=== PATIENT | female | born 1945 | race Caucasian/White ===

== ENCOUNTER 2022-09-16 12:11 | Emergency (ER) | payer MEDICARE, OTHER, SELFPAY ==
[2022-09-16] VITALS (9 sets, daily range): BP systolic 98–113; BP diastolic 46–54; PULSE 100–117; RESP 4–29; TEMP 37.4–37.8; O2SAT 93–100; BMI 28.3
--- NOTE | 2022-09-16 12:39 | ED.NAVMDI1 ---
HPI - Nausea/Vomiting/Diarrhea General Chief complaint: Nausea/Vomiting/Diarrhea Stated complaint: weakness Time Seen by Provider: 09/16/22 12:36 Source: patient Source comment: patient Mode of arrival: Wheelchair Limitations: no limitations History of Present Illness HPI Narrative: [age] female presents for nausea vomiting and diarrhea. She feels like she is dehydrated. She has been eating or drinking much. No fever or hematemesis or blood in her stool. She's not complaining to me of abdominal pain. No known ill contacts. No recent hospitalizations or antibiotic use. Related Data Previous Rx's Medication Instructions Recorded ondansetron 4 mg disintegrating 4 mg PO Q6H PRN nausea and 09/16/22 tablet vomiting #20 tabs Allergies Allergy/AdvReac Type Severity Reaction Status Date / Time aspartame Allergy Intermediate Verified 09/16/22 12:24 cantalope Allergy Intermediate Uncoded 09/16/22 12:24 Review of Systems ROS Narrative A ten point review of systems is negative except as noted above. PFSH PFSH Social History Smoking status: Never smoker Exam Narrative Exam Narrative: Nurses note and vital signs reviewed and patient is not hypoxic. General: The patient appears well and in no apparent distress. Patient is resting comfortably on cart. Skin: Warm, dry, no pallor noted. There is no rash noted. Head: Normocephalic, atraumatic Eye: Normal conjunctiva, no drainage Ears, Nose, Mouth, and Throat: oral mucosa is mildly dry Cardiovascular: Regular Rate and Rhythm Respiratory: Patient is in no distress, no accessory muscle use, lungs are clear to auscultation, no wheezing, rales or rhonchi Back: non-tender GI: often nontender Musculoskeletal: The patient has no evidence of calf tenderness, no pitting edema, symmetrical pulses noted bilaterally Neurological: A&O, normal speech Psychiatric: Cooperative Constitutional Vital Signs - 24 hr 09/16/22 12:19 09/16/22 12:20 09/16/22 12:22 Temperature 100.0 F H Pulse Rate 109 H Pulse Rate [Monitor] 114 H Respiratory Rate 24 20 Blood Pressure 98/54 L Blood Pressure [Right Arm] 98/54 L Pulse Oximetry 93 L 94 L 93 L Oxygen Delivery Method Room Air 09/16/22 12:22 09/16/22 12:22 09/16/22 12:55 Temperature Pulse Rate 113 H 114 H 105 H Pulse Rate [Monitor] Respiratory Rate 29 H 24 4 L Blood Pressure 98/54 L 108/54 L Blood Pressure [Right Arm] Pulse Oximetry 100 94 L 93 L Oxygen Delivery Method 09/16/22 13:00 09/16/22 13:30 09/16/22 13:56 Temperature 99.3 F Pulse Rate 103 H 104 H Pulse Rate [Monitor] Respiratory Rate 28 H 18 Blood Pressure 113/52 L 103/46 L Blood Pressure [Right Arm] Pulse Oximetry 97 97 Oxygen Delivery Method 09/16/22 13:30 Temperature Pulse Rate 100 H Pulse Rate [Monitor] Respiratory Rate 13 Blood Pressure 103/46 L Blood Pressure [Right Arm] Pulse Oximetry Oxygen Delivery Method Course Vital Signs Vital signs: Vital Signs Temperature 100.0 F H 09/16/22 12:19 Pulse Rate 114 H 09/16/22 12:19 Respiratory Rate 24 09/16/22 12:19 Blood Pressure 98/54 L 09/16/22 12:19 Pulse Oximetry 93 L 09/16/22 12:19 Oxygen Delivery Method Room Air 09/16/22 12:19 Temperature 99.3 F 09/16/22 13:56 Pulse Rate 100 H 09/16/22 13:30 Respiratory Rate 13 09/16/22 13:30 Blood Pressure 103/46 L 09/16/22 13:30 Pulse Oximetry 97 09/16/22 13:30 Oxygen Delivery Method Room Air 09/16/22 12:19 MDM - Nausea/Vomiting/Diarrhea MDM Narrative Medical decision making narrative: blood work is nonspecific. She feels much better after being given IV Zofran and IV fluids. She is tolerating by mouth liquids. Stool is ordered for culture and C. difficile She is able to be discharged home. Treatment diagnosis and follow-up were discussed with the patient. Differential Diagnosis Differential diagnosis: Likely food poisoning, gastroenteritis, clostridium difficile infection and dehydration Lab Data Attestation: I reviewed the patient's lab results. Labs: Lab Results 09/16/22 Range/Units 12:25 WBC 4.6 (4.0-11.0) 10^3/uL RBC 4.52 (4.20-5.40) 10^6/uL Hgb 12.6 (12.0-16.0) g/dL Hct 38.1 (36.0-48.0) % MCV 84.3 (81.0-99.0) fL MCH 27.9 (26.7-34.0) pg MCHC 33.1 (29.9-35.2) g/dL RDW 13.1 (11.0-15.0) % Plt Count 294 (150-450) 10^3/uL MPV 10.2 (9.5-13.5) fL Neut % (Auto) 56.4 (43.0-75.0) % Lymph % (Auto) 21.9 (20.5-60.0) % [place] % (Auto) 20.1 H (1.7-12.0) % Eos % (Auto) 0.0 L (0.9-7.0) % Baso % (Auto) 0.7 (0.2-2.0) % Neut # (Auto) 2.6 (1.4-6.5) 10^3/uL Lymph # (Auto) 1.0 L (1.2-3.8) 10^3/uL [place] # (Auto) 0.9 H (0.3-0.8) 10^3/uL Eos # (Auto) 0.0 (0.0-0.7) 10^3/uL Baso # (Auto) 0.0 (0.0-0.1) 10^3/uL Abs Immat Gran (auto) 0.04 H (0.00-0.03) 10^3/uL Imm/Tot Granulo (auto) 0.9 H (0.0-0.5) % Sodium 135 L (136-145) mmol/L Potassium 3.8 (3.5-5.1) mmol/L Chloride 101 (98-107) mmol/L Carbon Dioxide 19.1 L (21.0-32.0) mmol/L Anion Gap 18.7 BUN 17.0 (7.0-18.0) mg/dL Creatinine 0.96 (0.55-1.02) mg/dL Est GFR ( Amer) >60 (>=60) Est GFR (Non-Af Amer) 57 L (>=60) BUN/Creatinine Ratio 17.7 Glucose 207 H (74-106) mg/dL Calcium 8.3 L (8.5-10.1) mg/dL Discharge Plan Discharge Chief Complaint: Nausea/Vomiting/Diarrhea Clinical Impression: Diarrhea Patient Disposition: Home, Self-Care Time of Disposition Decision: 14:57 Condition: Good Mode of Transportation: Private Vehicle Prescriptions / Home Meds: New ondansetron 4 mg tablet,disintegrating 4 mg PO Q6H PRN (Reason: nausea and vomiting) Qty: 20 0RF Instructions: Acute Diarrhea (ED) Stand Alone Forms: Portal Instructions Referrals: WALT VAZQUEZ [Primary Care Provider] - 1 week
[2022-09-16 12:47] LABS: Basophils Percent Auto 0.7 % (0.2-2.0); Hematocrit 38.1 % (36.0-48.0); Hemoglobin 12.6 g/dL (12.0-16.0); Immature Granulocytes Abs Auto 0.04 10^3/uL (0.00-0.03); Immature Granulocytes Pct Auto 0.9 % (0.0-0.5); Lymphocytes Percent Auto 21.9 % (20.5-60.0); Mean Corpuscular HGB Conc 33.1 g/dL (29.9-35.2); Mean Corpuscular Hemoglobin 27.9 pg (26.7-34.0); Mean Corpuscular Volume 84.3 fL (81.0-99.0); Mean Platelet Volume 10.2 fL (9.5-13.5); Monocytes Absolute Auto 0.9 10^3/uL (0.3-0.8); Monocytes Percent Auto 20.1 % (1.7-12.0); Neutrophils Absolute Auto 2.6 10^3/uL (1.4-6.5); Neutrophils Percent Auto 56.4 % (43.0-75.0); Platelet Count 294 10^3/uL (150-450); Red Blood Count 4.52 10^6/uL (4.20-5.40); Red Cell Distribution Width 13.1 % (11.0-15.0); White Blood Count 4.6 10^3/uL (4.0-11.0)
[2022-09-16] MEDS: 0.9 % SODIUM CHLORIDE 500 ML IV (12:55)
[2022-09-16] MEDS: ONDANSETRON PF 4 MG/2 ML VIAL IV (12:55)
[2022-09-16 12:59] LABS: Anion Gap 18.7; BUN Creatinine Ratio 17.7; Calcium 8.3 mg/dL (8.5-10.1); Carbon Dioxide 19.1 mmol/L (21.0-32.0); Chloride 101 mmol/L (98-107); Estimated GFR (African America >60 (>=60); Estimated GFR (Non-African Ame 57 (>=60); Glucose 207 mg/dL (74-106); Potassium 3.8 mmol/L (3.5-5.1); Sodium 135 mmol/L (136-145)
--- NOTE | 2022-09-16 16:45 | ECG_ITS ---
[facility] Test Date: 2022-09-16 Pat Name: LB MUSE Department: Room: - Gender: Female Database Coordinator: : 1945 Requested By: [id number] Order Number: [id number] Reading MD: ROSEMARIE OLIVA Measurements Intervals [place] Rate: 114 P: 33 IA: 152 QRS: 95 QRSD: 130 T: 20 QT: 372 QTc: 440 Interpretive Statements 1120 Sinus tachycardia 3134 Anterior myocardial infarction, age undetermined 7102 Moderate right axis deviation 9150 abnormal ECG No previous ECG available for comparison Electronically Signed On 09-17-2022 7:13:53 EDT by ROSEMARIE OLIVA
[2022-09-16 17:00] LABS: C. Difficile PCR NEGATIVE (NEGATIVE)
== END 2022-09-16 15:23 | disposition home or self-care (01) ==
PROVIDERS: Emergency Provider Emergency Medicine; PCP Student in an Organized Health Care Education/Training Program
DX: R19.7 Diarrhea, unspecified (principal)
CPT/HCPCS: 36415; 80048; 81003; 85025; 87045; 87046; 87427; 87493; 93005; 99285

== ENCOUNTER 2023-08-27 10:49 | Outpatient (OUT) | payer MEDICARE, OTHER, SELFPAY ==
[2023-08-27 11:21] LABS: Anion Gap 11.1; Calcium 9.3 mg/dL (8.5-10.1); Carbon Dioxide 26.3 mmol/L (21.0-32.0); Chloride 107 mmol/L (98-107); Estimated GFR (African America >60 (>=60); Estimated GFR (Non-African Ame 50 (>=60); Glucose 180 mg/dL (74-106); Potassium 4.4 mmol/L (3.5-5.1); Sodium 140 mmol/L (136-145)
== END 2023-08-27 10:50 | disposition home or self-care (01) ==
LOC: LAB 10:51
PROVIDERS: PCP Student in an Organized Health Care Education/Training Program; Visit Provider Internal Medicine Cardiovascular Disease
DX: I42.9 Cardiomyopathy, unspecified (principal); I10 Essential (primary) hypertension
CPT/HCPCS: 36415; 80048

== ENCOUNTER 2024-04-10 09:49 | Outpatient (OUT) | payer MEDICARE, SELFPAY ==
--- OUTSIDE RECORDS SUMMARY | 2024-04-10 10:07 | XMS_ITS | CCD ---
Author Organization [facility] Care Team Providers Care Color Repairer Name Role Phone Danielle Nowak Unavailable Unavailable Unavailable Luke Scott II Unavailable Lino, Ms. Kenan Ware Attending Cy Huynh, Ms. Kenan Ware Referring Cy Nowak, Dr. Danielle Yadav Primary Care Unavail able MD Álvaro Pruitt Attending Provider MD Danielle Nowak Primary Care Provider Unavaila ble Álvaro Pruitt Attending Unavailable Álvaro Pruitt Admitting Unavailable She Danielle Primary Care Unavailable Álvaro Pruitt Attending Unavailable Álvaro Pruitt Admitting Unavailable She Danielle Primary Care Unavailable LINO, DR STEPHANIE Copeland Admitting Unavailable LINO, DR STEPHANIE Copeland Attending Unavailable LINO, DR STEPHANIE Copeland Consulting Unavailable [facility] Primary Care Unavailable TELLO MTZ Consulting Unavailable PRUITT, DR ÁLVARO Albarran Admitting Unavailable PRUITT, DR ÁLVARO Albarran Attending Unavailable [facility] Primary Care Unavailable PRUITT, DR ÁLVARO Albarran Consulting Unavailable LINO, DR STEPHANIE Copeland Admitting Unavailable LINO, DR STEPHANIE Copeland Attending Unavailable [facility] Primary Care Unavailable LINO, DR STEPHANIE Copeland Consulting Unavailable Tess Ovalles Consulting Unavailable Danielle Nowak Primary Care Physician Altagracia Rosario Attending Unavailable Memo Catherine Attending Unavailable Pruitt, Dr. Álvaro Escalona Attending Myriam vailable She, Dr. Danielle Yadav Primary Care Unavail able Sonal, Dr. Álvaro Escalona Attending Myriam vailable Pruitt, Dr. Álvaro Escalona Referring Myriam vailable She, Dr. Danielle Yadav Primary Care Unavail able Pruitt, Dr. Álvaro Escalona Attending Myriam vailable Pruitt, Dr. Álvaro Escalona Referring Myriam vailable She, Dr. Danielle Yadav Primary Care Unavail able Pruitt, Dr. Álvaro Escalona Attending Myriam vailable Pruitt, Dr. Álvaro Escalona Referring Myriam vailable She, Dr. Danielle Yadav Primary Care Unavail able Pruitt, Dr. Álvaro Escalona Attending Myriam vailable Pruitt, Dr. Álvaro Escalona Referring Myriam vailable She, Dr. Danielle Yadav Primary Care Unavail able Huynh, Ms. Kenan Ware Attending Unavai lable Huynh, Ms. Kenan Ware Referring Unavai lable She, Dr. Danielle Yadav Primary [facility] Unavail able She FRY, Danielle Yadav Primary Care Provider DANIELLE NOWAK Attending Unavailable SheDanielle obando MD Primary Care Provider ÁLVARO PRUITT Referring Unavailable SHE, DANIELLE YADAV Primary [facility] Unavailable Danielle Nowak MD Primary Care Provider Danielle Nowak MD Unavailable ÁLVARO PRUITT Attending Unavailable ÁLVARO PRUITT Referring Unavailable SHEDANIELLE OBANDO Primary Care Unavailable ÁLVARO PRUITT Attending Unavailable ÁLVARO PRUITT Referring Unavailable SHEDANIELLE OBANDO Primary [facility] Unavailable Allergies Allergy Classification Reported Allergen(s) Allergy Type Date of Onset Reaction(s) Facility (16 sources) Aspartame, Nutrasweet, Equal Allergy to substance (finding) Shortness of breath [facility] 250 DO Work Phone: (11 sources) Aspartame; Translations: [Aspartame] Drug Allergy 2 anaphylaxis, Swelling [facility] (10 sources) cantaloupe allergenic extract; Translations: [cantaloupe] Drug Allergy 2 Swelling [facility] (1 source) Aspartame Drug Allergy 1 [facility] Repository (1 source) Aspartame Drug Allergy [facility] Repository (6 sources) Budesonide / formoterol; Translations: [BUDESONIDE-FOR MOTEROL] Drug Allergy 3 Unknown [facility] Work Phone: (9 sources) pioglitazone; Translations: [PIOGLITAZONE] Drug Allergy 2 Unknown [facility] Work Phone: (3 sources) Aspartame Drug Allergy 3 Unknown [facility] (3 sources) Budesonide-Form oterol Fumarate Drug Allergy 3 Unknown [facility] (3 sources) Cantaloupe Extract Allergy Skin Test Propensity to adverse reactions 2 Swelling [facility] Work Phone: Medications Current Medications Medication Drug Class(es) Dates Sig (Normalized) Sig (Original) acetaminophen 500 mg oral tablet (12 sources) Start: 01-19-2021 take 500 mg by mouth every four hours Acetaminophen Active 500 MG PO Q4H 100 January 19, 2021 1:00am End: 01-19-2023 take 1 tablet by mouth every six hours as needed acetaminophen (Tylenol) 500 MG tablet Take 500 mg by mouth every 6 (six) hours if needed. Active amLODIPine 5 mg oral tablet (11 sources) Dihydropyridine Calcium Channel Thomas Start: 07-13-2022 take 1 tablet by mouth once daily amLODIPine (Norvasc) 5 mg tablet Indications: Hypertension, benign Take 1 tablet by mouth once daily 90 tablet 3 08/01/2023 Active bisoprolol fumarate 10 mg / hydroCHLOROthiazide 6.25 mg oral tablet (1 source) Thiazide Diuretic, beta-Adrenergic Thomas Start: 03-19-2011 End: 01-19-2023 take 1 tablet by mouth once daily bisoproloL-hydro chlorothiazide (Ziac) 10-6.25 mg tablet Take 1 tablet by mouth once daily. 0 03/19/2011 01/19/2023 Discontinued (Other) cefdinir 300 mg oral capsule (3 sources) Cephalosporin Antibacterial Start: 06-25-2021 End: 01-19-2023 take 2 capsules by mouth once daily cefdinir (Omnicef) 300 mg capsule Take 2 capsules (600 mg) by mouth once daily. 0 06/25/2021 01/19/2023 Discontinued (Other) diclofenac sodium 0.01 mg/mg topical gel (4 sources) Nonsteroidal Anti-inflammatory Drug Start: 01-19-2021 apply 2 g topically twice daily Diclofenac Sodium Active 2 GM TOPICAL Twice daily January 19, 2021 1:00am Diclofenac Sodiu m 1 % as directed Externally Active glipiZIDE 10 mg oral tablet (20 sources) Sulfonylurea Start: 11-29-2023 take 1 tablet by mouth once daily glipiZIDE (Glucotrol) 10 MG tablet Indications: Type 2 diabetes mellitus with other specified complication, without long-term current use of insulin ([facility]) Take 1 tablet by mouth once daily 90 tablet 11/29/2023 Active Start: 01-19-2021 End: 05-24-2022 take 10 mg by mouth once daily Glipizide Active 10 MG PO DAILY@0800 May 24, 2022 8:00am Start: 02-27-2018 take 10 mg by mouth twice moe y glipiZIDE 10 mg, Oral, BID, Refills(s) 0, Blood glucose Start Date: 02/27/18 Status: Ordered Start: 03-19-2011 End: 01-25-2024 take 1 tablet by mouth once daily glipiZIDE (Glucotrol ) 10 mg tablet Take 1 tablet (10 mg) by mouth once daily. 03/19/2011 Active take 1 tablet by adia th once daily 30 minutes before breakfast glipiZIDE 5 MG 1 tablet 30 minutes before breakfast Orally Once a day Active losartan potassium 50 mg oral tablet (20 sources) Angiotensin 2 Receptor Thomas Start: 09-22-2022 End: 08-16-2024 take 1 tablet by mouth twice daily losartan (Cozaar) 50 mg tablet Indications: Cardiomyopathy, unspecified type (Multi) , Hypertension, benign Take 1 tablet (50 mg) by mouth 2 times a day. 180 tablet 3 08/17/2023 08/16/2024 Active Start: 09-22-2022 End: 09-22-2023 take 1 tablet by mouth once daily in the morning losartan (Cozaar) 50 mg tablet Take 1 tablet (50 mg) by mouth once daily in the morning. 09/22/2022 08/17/2023 Discontinued (Dose adjustment) Start: 05-24-2022 take 100 mg by mouth once daily in the morning Losartan Active 100 MG PO Every morning May 24, 2022 8:00am Start: 05-18-2022 take 2 tablets by mo uth once daily Losartan Potassium 50 MG Oral Tablet TAKE 2 TABLET Daily Quantity: 180 Refills: 3 Ordered: 18-May-2022 Álvaro Pruitt MD Start : 18-May-2022 Active Start: 01-06-2021 End: 01-20-2021 Losartan Discontinued MG TAB LET January 06, 2021 12:00am January 20, 2021 10:45am Start: 02-27-2018 End: 05-24-2022 take 50 mg by mouth once daily losartan 50 mg, Oral, D aily, Refills(s) 0, High blood pressure Start Date: 02/27/18 Status: Ordered metFORMIN hydrochloride 1000 mg oral tablet (20 sources) Biguanide Start: 02-06-2023 End: 02-06-2024 take 1 tablet by mouth at mealtime metFORMIN (Glucophage) 1000 MG tablet Indications: Type 2 diabetes mellitus with other specified complication, without long-term current use of insulin ([facility]) TAKE 1 TABLET BY MOUTH IN THE MORNING WITH MEALS 100 tablet 01/25/2024 Active Start: 09-22-2022 End: 01-19-2023 take 1 tablet by mouth once daily at mealtime metFORMIN (Glucophage) 500 mg tablet Take 1 tablet (500 mg) by mouth once daily with a meal. 0 09/22/2022 01/19/2023 Discontinued (Other) Start: 01-19-2021 End: 05-28-2022 take 1000 mg by mouth once daily Metformin Discontinue d 1000 MG PO DAILY@0800 30 January 19, 2021 1:00am May 28, 2022 2:21pm Start: 02-27-2018 take 1000 mg by mout h twice daily metformin 1,000 mg, Oral, BID, Refills(s) 0, Blood glucose Start Date: 02/27/18 Status: Ordered Start: 03-19-2011 End: 01-20-2021 take 1 tablet by mouth once daily at mealtime metFORMIN (Glucophage) 1,000 mg tablet Take 1 tablet (1,000 mg) by mouth once daily at noon. Take with meals. 03/19/2011 Active take 1 tablet by adia th every twenty-four hours metFORMIN HCl 500 MG 1 tablet with a meal Orally Once a day Active 24 hr metoprolol succinate 100 mg extended release oral tablet (20 sources) beta-Adrenergic Thomas Start: 10-12-2023 take 1 tablet by mouth once daily metoprolol succinate XL (Toprol-XL) 100 mg 24 hr tablet Indications: Primary hypertension Take 1 tablet by mouth once daily 90 tablet 3 10/12/2023 Active Start: 07-15-2023 take 1 tablet by adia th once daily metoprolol succinate XL (Toprol-XL) 100 mg 24 hr tablet Indications: Primary hypertension Take 1 tablet by mouth once daily 90 tablet 07/15/2023 Active Start: 06-01-2022 metoprolol suc cinate XL (Toprol-XL) 100 mg 24 hr tablet 1 tablet (100 mg). 0 06/01/2022 Active Start: 05-28-2022 take 1 tablet by adia th once daily Metoprolol Succinate (Toprol Xl) 100 mg tablet extended release 24 hr Active 100 MG PO Daily May 28, 2022 12:00am Start: 02-27-2018 End: 01-19-2023 take 1 tablet by mouth once daily metoprolol 50 mg ER Tab 50 mg = 1 tab(s), Oral, Daily, Refills(s) 0, High blood pressure Start Date: 02/27/18 Status: Ordered take 1 capsule by [facility] once daily Metoprolol Succinate 50 MG 1 capsule Orally Once a day Active spironolactone 25 mg oral tablet (15 sources) Aldosterone Antagonist Start: 05-24-2022 take 50 mg by mouth once daily in the morning Spironolactone Active 50 MG PO Every morning May 24, 2022 12:00am Start: 05-18-2022 take 1 tablet by adia once daily spironolactone (Aldactone) 25 mg tablet Indications: Cardiomyopathy, unspecified type (Multi) Take 1 tablet by mouth once daily 90 tablet 3 06/06/2023 Active Completed/Discontinued Medications Medication Drug Class(es) Dates Sig (Normalized) Sig (Original) aspirin 81 mg oral tablet (20 sources) Platelet Aggregation Inhibitor, Nonsteroidal Anti-inflammatory Drug Start: 01-20-2021 End: 05-24-2022 take 81 mg by mouth twice daily Aspirin Discontinued 81 MG PO Twice daily 60 January 20, 2021 1:00am May 24, 2022 8:01am continue for 4weeks or until further instructed by the surgeon Start: 01-08-2021 End: 01-20-2021 take 81 mg by mouth once daily in the morning Aspirin Discontinued 81 MG PO Every morning January 08, 2021 6:19pm January 20, 2021 10:45am Start: 03-19-2011 End: 01-19-2023 take 1 tablet by mouth once daily aspirin 325 mg tablet Take 1 tablet (325 mg) by mouth once daily. 0 03/19/2011 01/19/2023 Discontinued (Other) End: 01-19-2023 take 1 tablet by mouth once daily aspirin 81 mg EC tablet Take 1 tablet (81 mg) by mouth once daily. 0 01/19/2023 Discontinued (Other) atorvastatin 20 mg oral tablet (20 sources) HMG-CoA Reductase Inhibitor Start: 02-24-2023 End: 02-24-2024 take 1 tablet by mouth in the morning atorvastatin (Lipitor) 20 MG tablet Indications: Mixed hyperlipidemia (CMS/HCC) TAKE 1 TABLET BY MOUTH IN THE MORNING 100 tablet 01/23/2024 01/25/2024 Discontinued Start: 01-06-2021 End: 01-19-2023 take 1 tablet by mouth once daily atorvastatin 20 mg Tab 20 mg = 1 tab(s), Oral, Daily, Refills(s) 0 Start Date: 09/21/22 Status: Ordered calcium carbonate 1250 mg or al tablet (8 sources) Start: 01-19-2021 End: 05-24-2022 Calcium Carbonate (Oyster Sh ell Calcium 500) 500 mg calcium (1,250 mg) Tablet Discontinued 500 MG PO Daily January 19, 2021 1:00am May 24, 2022 7:59am take 1 tablet by mouth three tomasz es daily Oyster Shell Calcium 500 MG Oral Tablet TAKE 1 TABLET BY MOUTH 3 TIMES DAILY Quantity: 0 Refills: 0 Ordered: 16-Feb-2021 DO Active take 1 tablet by adia th every twenty-four hours Calcium Carbonate 1250 (500 Ca) MG 1 tab let Orally Once a day Active cholecalciferol 0.025 mg oral capsule (20 sources) Vitamin D Start: 05-25-2021 take 1 capsule by mouth once daily Vitamin D-3 25 MCG (1000 UT) Oral Capsule TAKE 1 CAPSULE BY MOUTH ONCE DAILY Quantity: 90 Refills: 0 Ordered: 26-May-2021 DO Start : 25-May-2021 Active take 1 capsule by mouth in the m orning cholecalciferol (Vitamin D-3) 25 MCG (1000 UT) capsule Take 1,000 Units by mouth in the morning. Active docusate sodium 100 mg oral capsule (8 sources) Start: 01-19-2021 End: 05-24-2022 take 1 capsule by mouth twice daily Docusate Sodium (Dok) 100 mg Capsule Discontinued 100 MG PO Twice daily 60 January 19, 2021 1:00am May 24, 2022 8:00am take 1 tablet by mouth twice teddy ly Docusate Sodium 100 MG Oral Tablet Take 1 tablet twice daily Quantity: 0 Refills: 0 Ordered: 16-Feb-2021 DO Active take 1 capsule by ar ut every twenty-four hours Docusate Sodium 100 MG 1 capsule as need ed Orally Once a day Active empagliflozin 10 mg oral tablet (3 sources) Sodium-Glucose Cotransporter 2 Inhibitor Start: 08-17-2023 End: 08-16-2024 take 1 tablet by mouth once daily empagliflozin (Jardiance) 10 mg Indications: Cardiomyopathy, unspecified type (Multi) Take 1 tablet (10 mg) by mouth once daily. 90 tablet 3 08/17/2023 03/16/2024 Discontinued (Discontinued by another clinician) folic acid 1 mg oral tablet (8 sources) Start: 01-19-2021 End: 05-24-2022 take 1 mg by mouth once daily Folic Acid Discontinued 1 MG PO Daily 30 January 19, 2021 1:00am May 24, 2022 8:00am Magnesium Hydroxide (8 sources) Start: 01-19-2021 End: 05-24-2022 take 1 mL by mouth twice daily Magnesium Hydroxide (Milk Of Magnesia) 400 mg/5 mL Suspension Discontinued 30 ML PO Twice daily 150 January 19, 2021 1:00am May 24, 2022 8:00am take 30 mL by mouth twice daily Milk of Magnesia 400 MG/5ML Oral Suspension take 30 ml twice daily Quantity: 0 Refills: 0 Ordered: 16-Feb-2021 DO Active Magnesium Hydrox micheline 400 MG/5ML 5 ml at least 4 hours between doses as needed Orally Four times a day Active metroNIDAZOLE 500 mg oral tablet (3 sources) Nitroimidazole Antimicrobial Start: 09-18-2022 End: 01-19-2023 take 1 tablet by mouth three times daily Flagyl 500 mg Tab 500 mg = 1 tab(s), Oral, TID, Take one tab by mouth three times a day, # 21 tab(s), Refills(s) 0, [id number], 160, cm, 09/18/22 9:51:00 EDT, Height/Length Dosing, 68, kg, 09/18/22 9:51:00 EDT, Weight Dosing Start Date: 09/18/22 Status: Ordered omeprazole 20 mg delayed release oral capsule (8 sources) Proton Pump Inhibitor Start: 01-19-2021 End: 05-24-2022 take 20 mg by mouth once daily in the morning Omeprazole Discontinued 20 MG PO Every morning January 19, 2021 1:00am May 24, 2022 8:00am ondansetron 4 mg oral tablet (6 sources) Serotonin-3 Receptor Antagonist Start: 09-18-2022 take 1 tablet by mouth every six hours as needed for nausea Zofran 4 mg Tab 4 mg = 1 tab(s), Oral, q6hr, PRN Nausea, Take one tab by mouth every six hours as needed for nausea, # 10 tab(s), Refills(s) 0, [id number], 160, cm, 09/18/22 9:51:00 EDT, Height/Length Dosing, 68, kg, 09/18/22 9:51:00 EDT, Weight Dosing Start Date: 09/18/22 Status: Ordered Start: 09-16-2022 take 1 tablet by adia th every six hours as needed for nausea and vomiting ondansetron ODT (Zofran-ODT) 4 MG disintegrating tablet DISSOLVE 1 TABLET IN MOUTH EVERY 6 HOURS NEEDED FOR NAUSEA AND VOMITING 09/16/2022 Active Start: 09-16-2022 End: 01-19-2023 take 1 tablet under the tongue every six hours as needed ondansetron ODT (Zofran-ODT) [address] 1 tablet (4 mg) under the tongue every 6 hours if needed for nausea or vomiting. 0 09/16/2022 01/19/2023 Discontinued (Other) oxyCODONE hydrochloride 5 mg oral tablet (4 sources) Opioid Agonist Start: 01-19-2021 End: 05-24-2022 take 5 mg by mouth every four hours Oxycodone Discontinued 5 MG PO Every 4 hours 40 7 January 19, 2021 May 24, 2022 8:01am take 1 tablet by mouth every six hours oxyCODONE HCl 5 MG 1 tablet as needed Orally every 6 hrs Active polysaccharide iron complex 150 mg oral capsule (8 sources) Start: 01-19-2021 End: 05-24-2022 Polysaccharide Iron Complex (Ferrex 150) 150 mg iron Capsule Discontinued 150 MG PO Every morning 30 January 19, 2021 1:00am May 24, 2022 8:01am Sennosides (Senna Lax) 8.6 mg Tablet (2 sources) Start: 01-19-2021 End: 05-24-2022 take 2 tablets by mouth once daily Sennosides (Senna Lax) 8.6 mg Tablet Discontinued 17.2 MG PO Daily 60 January 19, 2021 1:00am May 24, 2022 8:01am sennosides, [facility] 8.6 mg oral tablet (6 sources) Sennosides 8.6 M G TABS TAKE 1 TABLET Twice daily PRN Quantity: 0 Refills: 0 Ordered: 16-Feb-2021 DO Active take 2 tablets by mo uth every twenty-four hours Sennosides 8.6 MG 2 tablets at bedtime a s needed Orally Once a day Active ubidecarenone 200 mg oral capsule (6 sources) Start: 09-01-2022 take 1 capsule by mouth once daily Co Q-10 200 MG Oral Capsule TAKE 1 CAPSULE Daily Quantity: 90 Refills: 3 Ordered: 01-Sep-2022 Álvaro Pruitt MD Start : 01-Sep-2022 Active End: 03-16-2024 take 1 capsule by mouth three times weekly coenzyme Q-10 200 mg capsule Take 1 capsule (200 mg) by mouth 3 (three) times a week. 03/16/2024 Discontinued (Discontinued by another clinician) vitamin b12 1 mg oral tablet (8 sources) Vitamin B12 Start: 01-19-2021 End: 05-24-2022 take 1000 ug by mouth once daily in the morning Cyanocobalamin (Vitamin B-12) Discontinued 1000 MCG PO Every morning January 19, 2021 1:00am May 24, 2022 8:00am take 1 tablet by mouth once moe y Cyanocobalamin 1000 MCG 1 tablet Orally Once a day Active Vitamin D 1000 intl units Tab (2 sources) Start: 08-15-2018 take 1 tablet by mouth once daily Vitamin D 1000 intl units Tab 1,000 International_Unit = 1 tab(s), Oral, Daily, # 30 tab(s), Refills(s) 0 Start Date: 08/15/18 Status: Ordered Problems Active Problems Problem Classification Problem Date Documented Date Episodic/Chronic Administrative/social admission (2 sources) Other reduced mobility; Translations: [Impaired mobility and activities of daily living] 01-09-2021 Episodic Aortic; peripheral; and visceral artery aneurysms (5 sources) Aneurysm; Translations: [Aneurysm of unspecified site] Onset: 2 01-19-2023 Chronic Conduction disorders (20 sources) Left bundle branch block; Translations: [Other left bundle branch block] Onset: 3 01-18-2023 Chronic Congestive heart failure; nonhypertensive (6 sources) Congestive heart failure due to cardiomyopathy; Translations: [Heart failure, unspecified] Onset: 4 08-17-2023 Chronic Deficiency and other anemia (2 sources) Anemia; Translations: [Anemia, unspecified] 01-09-2021 Episodic Diabetes mellitus with complications (5 sources) Hypertensive disorder; Translations: [Type 2 diabetes mellitus with other circulatory complications] 01-07-2021 Chronic Diabetes mellitus without complication (20 sources) Type 2 diabetes mellitus without complication; Translations: [Diabetes mellitus without mention of complication, type II or unspecified type, not stated as uncontrolled] Onset: 2 Resolved: 3 01-07-2021 Chronic Disorders of lipid metabolism (20 sources) Mixed hyperlipidemia; Translations: [Mixed hyperlipidemia] Onset: 3 01-07-2021 Chronic Essential hypertension (20 sources) Benign hypertension; Translations: [Benign essential hypertension] Onset: 2 01-09-2021 Chronic Fracture of neck of femur (hip) (4 sources) Displaced intertrochanteric fracture of left femur, subsequent encounter for closed fracture with routine healing; Translations: [Intertrochanteric fracture] Onset: 1 Resolved: 1 Episodic Genitourinary symptoms and ill-defined conditions (7 sources) Female stress incontinence; Translations: [Stress incontinence (female) (male)] Onset: 2 01-18-2023 Chronic Hypertension with complications and secondary hypertension (1 source) Hypertensive heart disease with heart failure; Translations: [Hypertensive heart disease with heart failure] Onset: 3 Chronic Malaise and fatigue (7 sources) Fatigue; Translations: [Chronic fatigue, unspecified] Onset: 3 01-18-2023 Chronic Nausea and vomiting (2 sources) Vomiting; Translations: [Vomiting, unspecified] Onset: 3 Episodic Noninfectious gastroenteritis (2 sources) Noninfectious enteritis; Translations: [Noninfective gastroenteritis and colitis, unspecified] Onset: 3 Episodic Nutritional deficiencies (7 sources) Vitamin D deficiency; Translations: [Vitamin D deficiency, unspecified] Onset: 3 01-18-2023 Chronic Nutritional deficiencies (4 sources) Cobalamin deficiency; Translations: [Deficiency of other specified B group vitamins] 01-09-2021 Episodic Osteoarthritis (6 sources) Osteoarthritis of right knee joint; Translations: [Unilateral primary osteoarthritis, right knee] Onset: 1 Resolved: 1 Chronic Osteoporosis (2 sources) Osteoporosis; Translations: [Age-related osteoporosis without current pathological fracture] 01-09-2021 Chronic Other and ill-defined heart disease (4 sources) Cardiomegaly; Translations: [Cardiomegaly] Onset: 4 Chronic Other connective tissue disease (2 sources) History of left total knee replacement; Translations: [Presence of left artificial knee joint] Chronic Other connective tissue disease (2 sources) Presence of left artificial knee joint Onset: 1 Resolved: 1 Chronic Other injuries and conditions due to external causes (2 sources) History of fall; Translations: [History of falling] 01-09-2021 Episodic Other nervous system disorders (2 sources) Postoperative pain ; Translations: [Other acute postprocedural pain] 01-09-2021 Episodic Other non-traumatic joint disorders (7 sources) Rotator cuff arthropathy of left shoulder; Translations: [Other specific arthropathies, not elsewhere classified, left shoulder] Onset: 3 01-18-2023 Chronic Other non-traumatic joint disorders (2 sources) Pain in right knee; Translations: [Right knee pain] 01-12-2021 Episodic Other non-traumatic joint disorders (2 sources) Hip pain; Translations: [Pain in left hip] 01-07-2021 Episodic Other nutritional; endocrine; and metabolic disorders (20 sources) Overweight in adulthood with body mass index of 25 or more but less than 30; Translations: [Overweight] Onset: 4 08-17-2023 Episodic Maria Eugenia-; endo-; and myocarditis; cardiomyopathy (except that caused by tuberculosis or sexually transmitted disease) (20 sources) Cardiomyopathy; Translations: [Other primary cardiomyopathies] Onset: 3 01-09-2021 Chronic Comment on above: Nonischemic based on cardiac catheterization May 2022; Prolapse of female genital organs (14 sources) Cystocele; Translations: [Cystocele, unspecified] Onset: 2 01-18-2023 Chronic Residual codes; unclassified (2 sources) History of repair of hip joint; Translations: [Other specified postprocedural states] 01-09-2021 Episodic Residual codes; unclassified (5 sources) Never smoked tobacco; Translations: [Other specified health status] Onset: 4 08-17-2023 Episodic Unclassified (1 source) Encounter for preprocedural laboratory examination; Translations: [Encounter for preprocedural laboratory examination] Onset: 3 Past or Other Problems Problem Classification Problem Date Documented Da te Episodic/Chronic Abdominal hernia (7 sources) Hernia of anterior abdominal wall; Translations: [Ventral hernia without obstruction or gangrene] Onset: 09-22-2022 01-18-2023 Episodic Other aftercare (1 source) Encounter for removal of sutures Onset: 01-21-2021 Resolved: 01-21-2021 Episodic Other aftercare (1 source) 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; Translations: [RETIREMENT CURRENT USE OF ASPIRIN] Onset: 02-24-2022 Episodic Other aftercare (1 source) snf (current) use of oral hypoglycemic drugs; Translations: [RETIREMENT USE ORAL HYPOGLYCEMIC DX] Onset: 02-24-2022 Episodic Other aftercare (1 source) Other correction (current) drug therapy; Translations: [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] Onset: 02-24-2022 Episodic Other bone disease and musculoskeletal deformities (7 sources) Osteopenia; Translations: [Other specified disorders of bone density and structure, multiple sites] Onset: 09-22-2022 01-18-2023 Episodic Other nervous system disorders (7 sources) Abnormal gait; Translations: [Unspecified abnormalities of gait and mobility] Onset: 09-22-2022 01-18-2023 Episodic Other nutritional; endocrine; and metabolic disorders (2 sources) Overweight; Translations: [Overweight] Onset: 08-17-2023 Episodic Other nutritional; endocrine; and metabolic disorders (2 sources) Body mass index (BMI) 27.0-27.9, adult; Translations: [Body mass index (BMI) 27.0-27.9, adult] Onset: 08-17-2023 Episodic Other screening for suspected conditions (not mental disorders or infectious disease) (20 sources) Echocardiogram abnormal; Translations: [Nonspecific (abnormal) findings on radiological and other examination of other intrathoracic organs] Onset: 05-11-2022 01-09-2021 Episodic Other skin disorders (1 source) Localized swelling, mass and lump, left upper limb; Translations: [LOC SWELL MASS LUMP LT UPPER LIMB] Onset: 02-24-2022 Episodic Pathological fracture (2 sources) Age-related osteoporosis with current pathological fracture, unspecified site, subsequent encounter for fracture with routine healing Onset: 01-21-2021 Resolved: 02-18-2021 Episodic Residual codes; unclassified (2 sources) Other specified health status; Translations: [Other specified health status] Onset: 08-17-2023 Episodic Superficial injury; contusion (4 sources) Contusion of left upper arm, initial encounter; Translations: [CONTUSION LEFT UPPER ARM INITIAL] Onset: 02-22-2022 Episodic Unclassified (16 sources) Never smoked tobacco; Translations: [Never a smoker] Unclassified (4 sources) Onset: 01-19-2023 Resolved: 03-16-2024 01-19-2023 Results Test Name Value Interpretation Reference Range Facility TRANSTHORACIC ECHO (TTE) [facility] JENNIFERTEon 09-22-2023 TRANSTHORACIC ECHO (TTE) COMPLETE [facility] [address], [address], [place] [address] TRANSTHORACIC ECHOCARDIOGRAM REPORT Patient Name: LB MUSE Reading Physician: [id number] Álvaro Pruitt MD, [facility] Study Date: 09/22/2023 Ordering Provider: [id number] ÁLVARO PRUITT MRN/PID: [id number] Fellow: Nurse: Date of /Age: 12 1945 / 78 years Cloth Neutralizer: Melly Gaviria RDCS, RVT Gender: F Additional Staff: Height: 160.02 cm Admit Date: Weight: 70.76 kg Admission Status: BSA / BMI: 1.74 m2 / 27.63 kg/m2 Department Location: [facility] Blood Pressure: 124 /68 mmHg Study Type: TRANSTHORACIC ECHO (TTE) COMPLETE Diagnosis/ICD: Cardiomyopathy, unspecified-I42.9; Heart failure, unspecified-I50.9; Cardiomegaly-I51.7 Indication: Abnormal EKG-lbbb, Diabetes, HTN, Hyperlipidemia, Overweight CPT Codes: Echo Complete w Full Doppler-[id number] Study Detail: The following Echo studies were performed: 2D, M-Mode, Doppler and color flow. PHYSICIAN INTERPRETATION: Left Ventricle: The left ventricular systolic function is normal, with a visually estimated ejection fraction of 60-65%. There are no regional wall motion abnormalities. The left ventricular cavity size is normal. Spectral Doppler shows an impaired relaxation pattern of left ventricular diastolic filling. Left Atrium: The left atrium is normal in size. Right Ventricle: The right ventricle is normal in size. There is normal right ventricular global systolic function. Right Atrium: The right atrium is normal in size. Aortic Valve: The aortic valve is trileaflet. The aortic valve dimensionless index is 0.61. There is no evidence of aortic valve regurgitation. The peak instantaneous gradient of the aortic valve is 8.4 mmHg. The mean gradient of the aortic valve is 4.0 mmHg. Mitral Valve: The mitral valve is normal in structure. There is no evidence of mitral valve regurgitation. Tricuspid Valve: The tricuspid valve is structurally normal. No evidence of tricuspid regurgitation. Pulmonic Valve: The pulmonic valve is structurally normal. There is no indication of pulmonic valve regurgitation. Pericardium: There is no pericardial effusion noted. Aorta: The aortic root is normal. Systemic Veins: The inferior vena cava appears to be of normal size. In comparison to the previous echocardiogram(s): When compared to study from 05/11/2022, the ejection fraction has improved from 25% up to 65%, the mild mitral regurgitation has subsided. CONCLUSIONS: 1. The left ventricular systolic function is normal, with a visually estimated ejection fraction of 60-65%. 2. Spectral Doppler shows an impaired relaxation pattern of left ventricular diastolic filling. 3. There is normal right ventricular global systolic function. 4. When compared to study from 05/11/2022, the ejection fraction has improved from 25% up to 65%, the mild mitral regurgitation has subsided. QUANTITATIVE DATA SUMMARY: 2D MEASUREMENTS: Normal Ranges: Ao Root d: 3.00 cm (2.0-3.7cm) LAs: 4.10 cm (2.7-4.0cm) RVIDd: 3.28 cm (0.9-3.6cm) IVSd: 1.36 cm (0.6-1.1cm) LVPWd: 1.13 cm (0.6-1.1cm) LVIDd: 4.52 cm (3.9-5.9cm) LVIDs: 3.29 cm LV Mass Index: 120.9 g/m2 LV % FS 27.2 % LV SYSTOLIC FUNCTION BY 2D PLANIMETRY (MOD): Normal Ranges: EF-A4C View: 66 % (>=55%) EF-A2C View: 64 % EF-Biplane: 65 % EF-Visual: 63 % LV EF Reported: 63 % LV DIASTOLIC FUNCTION: Normal Ranges: MV Peak E: 0.45 m/s (0.7-1.2 m/s) MV Peak A: 0.66 m/s (0.42-0.7 m/s) E/A Ratio: 0.68 (1.0-2.2) MV e' 0.049 m/s (>8.0) MV lateral e' 0.05 m/s MV medial e' 0.04 m/s E/e' Ratio: 9.09 (<8.0) MITRAL VALVE: Normal Ranges: MV Vmax: 0.82 m/s (<=1.3m/s) MV peak P.7 mmHg (<5mmHg) MV mean P.0 mmHg (<48mmHg) AORTIC VALVE: Normal Ranges: AoV Vmax: 1.45 m/s (<=1.7m/s) AoV Peak P.4 mmHg (<20mmHg) AoV Mean P.0 mmHg (1.7-11.5mmHg) LVOT Max Luis: 0.91 m/s (<=1.1m/s) AoV VTI: 32.00 cm (18-25cm) LVOT VTI: 19.50 cm LVOT Diameter: 2.40 cm (1.8-2.4cm) AoV Area, VTI: 2.76 cm2 (2.5-5.5cm2) AoV Area,Vmax: 2.84 cm2 (2.5-4.5cm2) AoV Dimensionless Index: 0.61 TRICUSPID VALVE/RVSP: Normal Ranges: Peak TR Velocity: 1.89 m/s RV Syst Pressure: 17.3 mmHg (< 30mmHg) PULMONIC VALVE: Normal Ranges: PV Max Luis: 0.8 m/s (0.6-0.9m/s) PV Max P.5 mmHg [id number] Álvaro Pruitt MD, [facility] Electronically signed on 09/23/2023 at 4:00:55 PM Final Normal [facility] Discharge Instructionson Discharge Instructions [id number]:[id number] Normal [facility] ED Clinical Summaryon 2022 ED Clinical Summary (Inserted Image. Myriam ble to display) [place] [id number] ED Clinical Summary Person Information Name: LB MUSE [place] Age: 77 Years : 1945 Sex: Female Language: Cambodian PCP: She FRY, Danielle Albarran Marital Status: Visit Id: Visit Reason: Nausea; Vomiting; Abdominal pain; THROWING UP Speciality: Acuity: 2 Enc Type: Emergency Med Service: Emergency Arrival: 09/21/2022 19:54:16 Discharge: 09/22/2022 00:01:59 LOS: 000 04:07 Checkin: 09/21/2022 19:54:16 Checkout: 09/22/2022 00:01:59 Dispo Type: Home (Routine DC) EVENTS: Event Name Event Status Request Date/Time Start Date/Time Complete Date/Time Arrive Complete 09/21/2022 19:54:16 09/21/2022 19:54:16 09/21/2022 19:54:16 Document Home Meds Request 09/21/2022 19:54:16 Triage Complete 09/21/2022 19:54:16 09/21/2022 20:11:23 09/21/2022 20:11:23 Bed Assign Complete 09/21/2022 20:18:24 09/21/2022 20:18:24 09/21/2022 20:18:24 Dr Exam Complete 09/21/2022 20:18:24 09/21/2022 20:18:50 09/21/2022 20:18:50 RN Exam Complete 09/21/2022 20:18:24 09/21/2022 20:35:02 09/21/2022 20:35:02 Registration Complete 09/21/2022 20:18:50 09/21/2022 20:48:15 09/21/2022 20:48:15 EKG Complete 09/21/2022 20:31:01 09/21/2022 20:37:33 Meds Admin Complete 09/21/2022 20:31:01 09/21/2022 21:30:12 Pending Labs Request 09/21/2022 20:31:01 Lab Request 09/21/2022 20:31:01 Urine Collect Complete 09/21/2022 20:31:01 09/21/2022 23:29:27 X-Ray Complete 09/21/2022 20:31:01 09/21/2022 20:46:55 09/21/2022 20:55:25 RT Request 09/21/2022 20:31:01 Fall Risk Request 09/21/2022 20:35:02 Reg Complete Request 09/21/2022 20:48:15 Reg Bed Request Complete 09/21/2022 20:48:16 09/21/2022 20:48:16 09/21/2022 20:48:16 Pending Labs Complete 09/21/2022 20:52:44 09/21/2022 20:52:44 09/21/2022 21:11:35 Lab Complete 09/21/2022 20:52:44 09/21/2022 20:52:44 09/21/2022 21:11:35 Wet Read Request 09/21/2022 20:55:25 Pending Labs Complete 09/21/2022 20:57:59 09/21/2022 20:57:59 09/21/2022 20:58:06 Lab Complete 09/21/2022 20:57:59 09/21/2022 20:57:59 09/21/2022 20:58:06 Meds Admin Complete 09/21/2022 21:26:27 09/21/2022 21:33:16 Pending Labs Complete 09/21/2022 21:33:48 09/21/2022 21:33:48 09/21/2022 21:33:48 Meds Admin Complete 09/21/2022 23:18:53 09/21/2022 23:56:46 Discharge Complete 09/21/2022 23:22:18 09/22/2022 00:02:03 09/22/2022 00:02:03 Transfer Complete 09/22/2022 00:02:03 09/22/2022 00:02:03 09/22/2022 00:02:03 ADDRESS: [address] [place] [id number] PHYS DOC NOTES: MEDICAL INFORMATION: Prescriptions Given: Medications to Continue with No Changes Other Medications amlodipine (amLODIPine 5 mg Tab) 1 Tablets By Mouth every day. atorvastatin (atorvastatin 20 mg Tab) 1 Tablets By Mouth every day. cholecalciferol (Vitamin D 1000 intl units Tab) 1 Tablets By Mouth every day. glipiZIDE 10 Milligram By Mouth 2 times a day. losartan 50 Milligram By Mouth every day. metformin 1,000 Milligram By Mouth 2 times a day. metoprolol (metoprolol 50 mg ER Tab) 1 Tablets By Mouth every day. metronidazole (Flagyl 500 mg Tab) 1 Tablets By Mouth 3 times a day. Take one tab by mouth three times a day. Refills: 0. ondansetron (Zofran 4 mg Tab) 1 Tablets By Mouth every 6 hours as needed Nausea. Take one tab by mouth every six hours as needed for nausea. Refills: 0. spironolactone (spironolactone 25 mg Tab) 1 Tablets By Mouth every day. PATIENT EDUCATION INFORMATION: Instructions: Nausea and Vomiting, Adult, Jvni-vc-Ytnx; Colitis Follow up: With: Address: When: [place] [address] [place] [address] Business ([employer] In 3 days 09/24/2022 Comments: You can take the Zofran every 6 hours as needed for nausea and vomiting. Please continue taking the Flagyl as prescribed you have completed the course. Please follow-up with your primary care doctor in the next 2 to 3 days for further evaluation management. Please return to the ED for any new or worsening symptoms. DIAGNOSIS: Acute colitis; N&V (nausea and vomiting) Normal [facility] ED Note-Physicianon 09-23-19 ED Note-Physician Basic Information Time Seen: Altagracia Rosario DO 09/21/2022 20:18 Chief Complaint pt. c/o vomiting, abd. pain today. dx with colitis on tuesday, states initially it was diarrhea and now c/o constipation. states she had diarrhea for 9 days. last BM Tuesday. History of Present Illness Patient is a 77-year-old female presenting to the ED for evaluation of of vomiting and constipation. Patient had diarrhea for 9 days was seen here on Tuesday was diagnosed with colitis sent home on Flagyl in addition to Zofran. Patient states that she was told to return to the ED if she had any further episodes of vomiting. Patient states she had 1 episode of vomiting earlier today, did not take the Zofran. Patient states since she was seen she has not had a bowel movement however the diarrhea has resolved. Denies any fevers, chills, chest pain, shortness of breath. Review of Systems A 10 point review of systems is negative except as noted above. Medical and Surgical History: Reviewed and noted Social history: Lives at home Tobacco: Denies Physical Exam Vitals & Measurements T: 36.7 ?C(Oral) HR: 62(Monitored) RR: 20 BP: 116/50 SpO2: 98% HT: 160 cm WT: 68 kg BMI: 26.56 General: Well developed, non toxic appearing, no acute distress HEENT: Head atraumatic, Mucosa moist, hearing grossly normal Neck: No JVD, tracheal deviation Cardiac: Regular rate, rhythm, no murmurs, or gallops, 2+ radial pulses Respiratory: Lungs clear to auscultation B/L, normal respiratory effort Abdomen: Soft non tender, no rebound or guarding, no peritoneal signs Extremities: No edema noted in the LE B/L, no tenderness to palpation Neurologic: Alert and oriented, speech clear Skin: No rashes or lesions Psych: Appropriate mood and behavior Medical Decision Making MEDICAL DECISION MAKING Number and Complexity of Problems Differential Diagnosis: [] [facility] Data External documents reviewed: [] My EKG interpretation: [] My CT interpretation: [] My X-ray interpretation: [] My Ultrasound interpretation: [] Decision rules/scores evaluated: [] Discussed with: [] Treatment and Disposition ED Course: Patient is a 77-year-old female presenting to the ED for evaluation of nausea and vomiting. Patient is nontoxic and on arrival, no acute distress. Had CT imaging done on Tuesday which showed colitis. Patient was advised to return for any worsening symptoms. Patient had an episode of vomiting this morning, did not take the Zofran prompting her to come back to the ED. Laboratory evaluation shows mild hypokalemia but is otherwise unremarkable. Patient has no abdominal pain on examination. Patient is given Zofran, IV fluids. On reevaluation she is feeling improved. She was able to tolerate oral intake. She is discharged home advised to use the Zofran that she has at home as needed for nausea and vomiting. She is advised to continue the antibiotics. She is to return to the ED for any new or worsening symptoms. Shared decision making: [] Code status: [] Assessment/Plan Acute colitis (K52.9: Noninfective gastroenteritis and colitis, unspecified) N&V (nausea and vomiting) (R11.2: Nausea with vomiting, unspecified) Orders: metronidazole, 500 mg = 1 tab(s), Tab, Oral, Once, Stop date 09/21/22 23:18:00 EDT, STAT, Start date 09/21/22 23:18:00 EDT, 09/21/22 23:18:00 EDT ondansetron, 4 mg = 2 mL, Injection, IV Push, Once, Stop date 09/21/22 21:26:00 EDT, STAT, Start date 09/21/22 21:26:00 EDT, 09/21/22 21:26:00 EDT Sodium Chloride 0.9% intravenous solution, 1,000 mL, Soln-IV, IV, Once, Stop date 09/21/22 20:30:00 EDT, STAT, Start date 09/21/22 20:30:00 EDT, Infuse over 61, minute(s) Automated Diff Blood Culture Charcoal Blood Culture Charcoal CBC w/ Auto Diff Comprehensive Metabolic Panel Continuous Pulse Oximetry ECG 12 Lead Adult ED Cardiac Monitoring eGFR Extra SST Tube Lactic Acid Lactic Acid Oxygen Therapy PT & PTT Troponin UA With Cult Reflex XR Chest Single View Medications Administered Given NS 1000 ml Bolus, 1000 mL, IV Zofran 4 mg/2 mL Injection, 4 mg, IV Push Disposition Plan Discharge Prescription List Prescriptions No active prescription medications Follow-up With When Contact Information Danielle Nowak In 3 days 09/24/[address] [place] [address]- Business (1) Additional Instructions: You can take the Zofran every 6 hours as needed for nausea and vomiting. Please continue taking the Flagyl as prescribed you have completed the course. Please follow-up with your primary care doctor in the next 2 to 3 days for further evaluation management. Please return to the ED for any new or worsening symptoms. Patient Education Nausea and Vomiting, Adult, Ioof-qw-Hkne Colitis Problem List/Past Medical History Ongoing No qualifying data Historical No qualifying data Procedure/Surgical History Repair of bladder (2012), Replacement of left knee joint (2 (more content not included)... Normal [facility] Comment on above: Result Comment: Elec tronically Signed By: Altagracia Rosario DO\Date and Time Signed: 09/21/22 23:30 EDT ED Patient Education Noteon 09-22-2022 ED Patient Education Note Gastroenterology Nausea and Vomiting, Adult Nausea is feeling that you have an upset stomach and that you are about to vomit. Vomiting is when food in your stomach forcefully comes out of your mouth. Vomiting can make you feel weak. If you vomit, or if you are not able to drink enough fluids, you may not have enough water in your body (get dehydrated). If you do not have enough water in your body, you may: ? Feel tired. ? Feel thirsty. ? Have a dry mouth. ? Have cracked lips. ? Pee (urinate) less often. Older adults and people with other diseases or a weak body defense system (immune system) are at higher risk for not having enough water in the body. If you feel like you may vomit or you vomit, it is important to follow instructions from your doctor about how to take care of yourself. Follow these instructions at home: Watch your symptoms for any changes. Tell your doctor about them. Eating and drinking ? Take an ORS (oral rehydration solution). This is a drink that is sold at pharmacies and stores. ? Drink clear fluids in small amounts as you are able, such as: ? Water. ? Ice chips. ? Fruit juice that has water added (diluted fruit juice). ? Low-calorie sports drinks. ? Eat bland, xxhf-ru-pwpdsw foods in small amounts as you are able, such as: ? Bananas. ? Applesauce. ? Rice. ? Low-fat (lean) meats. ? [place]. ? Crackers. ? Avoid drinking fluids that have a lot of sugar or caffeine in them. This includes energy drinks, sports drinks, and soda. ? Avoid alcohol. ? Avoid spicy or fatty foods. General instructions ? Take aazz-wmp-oonfjit and prescription medicines only as told by your doctor. ? Drink enough fluid to keep your pee (urine) pale yellow. ? Wash your hands often with soap and water for at least 20 seconds. If you cannot use soap and water, use hand director embalmer. ? Make sure that everyone in your home washes their hands well and often. ? Rest at home until you feel better. ? Watch your condition for any changes. ? Take slow and deep breaths when you feel like you may vomit. ? Keep all follow-up visits. Contact a doctor if: ? Your symptoms get worse. ? You have new symptoms. ? You have a fever. ? You cannot drink fluids without vomiting. ? You feel like you may vomit for more than 2 days. ? You feel light-headed or dizzy. ? You have a headache. ? You have muscle cramps. ? You have a rash. ? You have pain while peeing. Get help right away if: ? You have pain in your chest, neck, arm, or jaw. ? You feel very weak or you faint. ? You vomit again and again. ? You have vomit that is bright red or looks like black coffee grounds. ? You have bloody or black poop (stools) or poop that looks like tar. ? You have a very bad headache, a stiff neck, or both. ? You have very bad pain, cramping, or bloating in your belly (abdomen). ? You have trouble breathing. ? You are breathing very quickly. ? Your heart is beating very quickly. ? Your skin feels cold and clammy. ? You feel confused. ? You have signs of losing too much water in your body, such as: ? Dark pee, very little pee, or no pee. ? Cracked lips. ? Dry mouth. ? Sunken eyes. ? Sleepiness. ? Weakness. These symptoms may be an emergency. Get help right away. Call 911. ? Do not wait to see if the symptoms will go away. ? Do not drive yourself to the hospital. Summary ? Nausea is feeling that you have an upset stomach and that you are about to vomit. Vomiting is when food in your stomach comes out of your mouth. ? Follow instructions from your doctor about eating and drinking. ? Take rnyz-hwt-fjayncx and prescription medicines only as told by your doctor. ? Contact your doctor if your symptoms get worse or you have new symptoms. ? Keep all follow-up visits. This information is not intended to replace advice given to you by your health care provider. Make sure you discuss any questions you have with your health care provider. Document Revised: 09/04/2021 Document Reviewed: 09/04/2021 [employer] Patient Education ? 2022 [employer] Colitis Colitis is a condition in which the colon is inflamed. It can cause diarrhea, blood in the stool, and abdominal pain. Colitis can last a short time (be acute), or it may last a long time (become chronic). What are the causes? This condition may be caused by: ? Infections from viruses or bacteria. ? A reaction to medicine. ? Certain autoimmune diseases, such as Crohn's disease or ulcerative colitis. ? Radiation treatment. ? Decreased blood flow to the bowel (ischemia). What are the signs or symptoms? Symptoms of this condition include: ? Diarrhea, blood in the stool, or black, tarry stool. ? Pain in the joints or abdominal pain. ? Fever or fatigue. ? Vomiting. ? Weight loss. ? Bloating. ? Having fewer bowel movements than usual. ? (more content not included)... Normal [facility] ED Patient Summaryon 023 ED Patient Summary (Inserted Image. Myriam ble to display) [address] [address] Patient Discharge Instructions Person Information Name: LB MUSE Age: 77 Years Arrival Date: 09/21/2022 19:54:16 Discharge Diagnosis: Acute colitis; N&V (nausea and vomiting) Primary Care Physician: Danielle Nowak MD Provider Information Primary Provider: Altagracia Rosario DO Advanced Tuberculosis Specialist:None The exam and treatment you received in the Emergency Department were for an urgent problem and are not intended as complete care. It is important that you follow up with a doctor, nurse practitioner, or physician?s home care assistant for ongoing care. If your symptoms become worse or you do not improve as expected and you are unable to reach your usual health care provider, you should return to the Emergency Department. We are available 24 hours a day. LB MUSE has been given the following list of patient education materials, prescriptions and follow-up instructions: Follow-up Instructions: With: Address: When: [place] [address] Business (1) In 3 days 09/24/2022 Comments: You can take the Zofran every 6 hours as needed for nausea and vomiting. Please continue taking the Flagyl as prescribed you have completed the course. Please follow-up with your primary care doctor in the next 2 to 3 days for further evaluation management. Please return to the ED for any new or worsening symptoms. In the event that this physician does not participate in your insurance network, please consult with your insurance company to find a nearby participating provider. Patient Education Materials: Nausea and Vomiting, Adult, Pnqs-hz-Kqpx; Colitis A MESSAGE TO ALL PATIENTS REGARDING OPIOIDS PRESCRIPTION OPIOIDS: WHAT YOU NEED TO KNOW Prescription opioids can be used to help relieve olkmuaos-rx-mgtfre pain and are often prescribed following a surgery or injury, or for certain health conditions. These medications can be an important part of the treatment but also come with serious risks. It is important to work with your healthcare provider to make sure you are getting the safest, most effective care. WHAT ARE THE RISKS AND SIDE EFFECTS OF OPIOID USE? Prescription opioids carry serious risks of addiction and overdose, especially with prolonged use. An opioid overdose, often marked by slowed breathing, can cause sudden . The use of prescription opioids can have a number of side effects as well, even when taken as directed: ? Tolerance?meaning you might need to take more of the medication for the same pain relief ? Physical dependence?meaning you have symptoms of withdrawal when a medication is stopped ? Increased sensitivity to pain ? Constipation ? Nausea, vomiting, and dry mouth ? Sleepiness and dizziness ? Confusion ? Depression ? Low levels of testosterone that can result in lower sex drive, energy, and strength ? Itching and sweating RISKS ARE GREATER WITH: ? History of drug misuse, substance use disorder, or overdose ? Mental health conditions (such as depression or anxiety) ? Sleep apnea ? Older age (65 years and older) ? Avoid alcohol while taking prescription opioids. Also, unless specifically advised by your health care provider, medications to avoid include: ? Benzodiazepines (such as Xanax or Valium) ? Muscle relaxants (such as Soma or Flexeril) ? Hypnotics (such as Ambien or Lunesta) ? Other prescription opioids KNOW YOUR OPTIONS Talk to your health care provider about ways to manage your pain that don?t involve prescription opioids. Some of these options may actually work better and have fewer risks and side effects. Options may include: ? Pain relievers such as acetaminophen, ibuprofen, and naproxen ? Some medication that are also used for depression or seizures ? Physical therapy and exercise ? Cognitive behavioral therapy, a psychological, goal-directed approach, in which patients learn how to modify physical, behavioral, and emotional triggers of pain and stress. IF YOU ARE PRESCRIBED OPIOIDS FOR PAIN: ? Never take opioids in greater amounts or more often than prescribed. ? Follow up with your primary health care provider. o Work together to create a plan on how to manage your pain. o Talk about ways to help manage your pain that don?t involve prescription opioids. o Talk about any and all concerns and side effects. ? Help prevent misuse and abuse o Never sell or share prescription opioids. o Never use another person?s prescription opioids. ? Store prescription opioids in a secure place and out of reach of others (this may include visitors, children, friends, and family). ? Safely dispose of unused prescription opioids: Find your community drug take-back program or your pharmacy mail-back program, or flush them down the toilet, following clive (more content not included)... Normal [facility] Monitor Recordon 09-22-2022 Monitor Record [id number] Normal [facility] UA With Cult Reflexon 2022 Bacteria LM Ql (Urine sed) 1+ /HPF Abnormal Trace [facility] Comment on above: Performed By: #### 1 [id number] ####[facility] [address] [place] [address] Bilirubin Ql (U) Negative Normal Negative [facility] Comment on above: Performed By: #### 1 [id number] ####[facility] [address] [place] [address] Clarity (U) CLEAR Normal Clear [facility] Comment on above: Performed By: #### 1 [id number] ####[facility] [address] [place] [address] Color (U) YELLOW Normal Yellow [facility] Comment on above: Performed By: #### 1 [id number] ####[facility] [address] [place] [address] Epithelial cells.squamous LM.HPF (Urine sed) [#/Area] 0-2 Normal 0-2 [facility] Comment on above: Performed By: #### 1 3845523 ####[address] [place] [address] Glucose Test strip (U) [Mass/Vol] Negative Normal Negative [facility] Comment on above: Performed By: #### 1 [id number] ####[address] [address] Hemoglobin Ql (U) Negative Normal Negative [facility] Comment on above: Performed By: #### 1 5953887 ####[address] [address] Ketones (U) [Mass/Vol] TRACE Invalid Interpretation Code Negative [facility] Comment on above: Performed By: #### 1 9130141 ####[address] [address] [place].plasma/[place] .RBC (Bld) [Mass ratio] 0-3 Normal 0-3 [facility] Comment on above: Performed By: #### 1 [id number] ####[address] [address] Nitrite Ql (U) Negative Normal Negative [facility] Comment on above: Performed By: #### 1 [id number] ####[address] [address] pH (U) 6.0 [pH] Invalid Interpretation Code 5.0-9.0 [facility] Comment on above: Performed By: #### 1 [id number] ####[address] [address] Protein (U) [Mass/Vol] Negative Normal Negative [facility] Comment on above: Performed By: #### 1 2658861 ####[address] [address] Specific gravity (U) [Rel density] <=1.005 Invalid Interpretation Code 1.005-1.03 0 [facility] Comment on above: Performed By: #### 1 [id number] ####[address] [address] Type of Urine collection method Clean Catch Normal [facility] Comment on above: Performed By: #### 1 [id number] ####[facility] [address] [place] [address] Urobilinogen Qn (U) 0.2 {Willow'U}/dL Normal 0.0-1.0 [facility] Comment on above: Performed By: #### 1 8242125 ####[facility] [address] [place] [address] WBC Auto Ql (U) TRACE Abnormal Negative [facility] Comment on above: Performed By: #### 1 [id number] ####[facility] [address] [place] [address] WBC LM.HPF (Urine sed) [#/Area] 0-5 Normal 0-5 [facility] Comment on above: Performed By: #### 1 [id number] ####[facility] [address] [place] [address] XR Chest Single Viewon 09-22 XR Chest Single View Exam Date/Time: 09/21/2022 20:55 EDT Reason for Exam: Shortness of breath (SOB) Report IMPRESSION: NO ACTIVE PULMONARY DISEASE. CLINICAL HISTORY: Shortness of breath (SOB) abdominal pain COMPARISON: NONE. FINDINGS: AP upright portable chest shows normal-sized heart and unremarkable both lungs. There is mild eventration of the right hemidiaphragm. There is possible tiny calcified granulomas in right perihilar area. Ordering Provider: Altagracia Rosario FINAL REPORT Dictated: 09/22/2022 7:21 am Tony Phoenix M.D. Signed (Electronic Signature): 09/22/2022 7:21 am Signed by: Tony Phoenix M.D. Transcribed by: SOCRATES Technologist: JUAN Technical Comments Radiation Dose: Ka,r in mGy = na DAP = na Normal [facility] Auto Diffon 09-21-2022 Basophils/100 WBC (Bld) 0.8 % Normal 0.0-2.0 [facility] Comment on above: Order Comment: Order Added by Discern Expert. Performed By: #### 2 766890, 9398716, 9845892, 20547663, 3664944, 54646782, 5676360 ####[address] [place] [address] Basophils/Leukocytes Auto (Bld) [Pure # fraction] 0.1 E9/L Normal 0.0-0.2 [facility] Comment on above: Order Comment: Order Added by Discern Expert. Performed By: #### 2 188325, 7139033, 8293625, 54659061, 3463955, 00141078, 5262448 ####[address] [place] [address] Eosinophils/100 WBC (Bld) 0.7 % Normal 0.0-8.0 [facility] Comment on above: Order Comment: Order Added by Discern Expert. Performed By: #### 2 575009, 7249517, 8646776, 28686427, 9064157, 44917815, 8066688 ####[address] [address] Eosinophils/Leukocytes Auto (Bld) [Pure # fraction] 0.1 E9/L Normal 0.0-0.5 [facility] Comment on above: Order Comment: Order Added by Discern Expert. Performed By: #### 2 284963, 8183353, 4421229, 45024549, 8788098, 96772564, 6052385 ####[address] [address] Lymphocytes/100 WBC (Bld) 16.2 % Normal 14.0-50.0 [facility] Comment on above: Order Comment: Order Added by Discern Expert. Performed By: #### 2 994816, 2464815, 1354791, 71855551, 3632609, 32726633, 2576447 ####[address] [place] [address] Lymphocytes/Leukocytes Auto (Bld) [Pure # fraction] 1.6 E9/L Normal 1.0-4.0 [facility] Comment on above: Order Comment: Order Added by Discern Expert. Performed By: #### 2 978271, 0092402, 1831500, 67173594, 5601320, 02741892, 5731073 ####[address] [place] [address] Monocytes/100 WBC (Bld) 8.2 % Normal 4.0-14.0 [facility] Comment on above: Order Comment: Order Added by Discern Expert. Performed By: #### 2 259848, 6381802, 6778855, 76643856, 6107606, 53658893, 9042885 ####[address] [place] [address] Monocytes/Leukocytes Auto (Bld) [Pure # fraction] 0.8 E9/L Normal 0.2-1.0 [facility] Comment on above: Order Comment: Order Added by Cheryl Expert. Performed By: #### 2 939568, 2436446, 9224902, 57271668, 3709512, 59189415, 8135158 ####[address] [address] Neutrophils/100 WBC (Bld) 74.1 % Normal 36.0-75.0 [facility] Comment on above: Order Comment: Order Added by Cheryl Expert. Performed By: #### 2 730024, 4563613, 0901802, 03405067, 7658489, 61522290, 8438551 ####[address] [address] Neutrophils/Leukocytes Auto (Bld) [Pure # fraction] 7.5 E9/L Normal 2.0-7.5 [facility] Comment on above: Order Comment: Order Added by Cheryl Expert. Performed By: #### 2 986715, 8709455, 0510279, 19889524, 5480110, 24482543, 6670268 ####[address] [place] [address] CBC w/ Auto Diffon 3 Erythrocyte distribution width (RBC) [Ratio] 13.8 % Normal 10.9-14.2 [facility] Comment on above: Performed By: #### 2 846895, 9182158, 1581867, 50145500, 5709680, 11302122, 3066252 ####[facility] [address] [place] [address] Hematocrit (Bld) [Volume fraction] 36.2 % Normal 34.0-46.0 [facility] Comment on above: Performed By: #### 2 758644, 8357224, 0050943, 61824527, 3962618, 86389915, 6706190 ####[facility] [address] [place] [address] Hemoglobin (Bld) [Mass/Vol] 12.1 g/dL Normal 12.0-16.0 [facility] Comment on above: Performed By: #### 2 495821, 4992735, 9288315, 78210856, 9353168, 84525485, 1970702 ####[facility] [address] [place] [address] MCH (RBC) [Entitic mass] 27.8 pg Normal 27.0-34.0 [facility] Comment on above: Performed By: #### 2 298683, 3741576, 7014394, 62995032, 6241759, 70310352, 9874431 ####[address] [address] MCHC (RBC) [Mass/Vol] 33.4 g/dL Normal 31.4-36.[address] [facility] Comment on above: Performed By: #### 2 053315, 8131235, 0617413, 61266463, 1212428, 80824168, 1941986 ####[address] [address] MCV (RBC) [Entitic vol] 83.4 fL Normal 80.0-100.0 [facility] Comment on above: Performed By: #### 2 095093, 7727828, 4145424, 89610954, 2665050, 04012906, 2470309 ####[facility] [address] [place] [address] Platelet mean volume (Bld) [Entitic vol] 7.6 fL Normal 6.4-10.8 [facility] Comment on above: Performed By: #### 2 889594, 4248675, 5736768, 10203153, 1894063, 19833711, 6365564 ####[facility] [address] [place] [address] Platelets (Bld) [#/Vol] 362.0 E9/L Normal 150.0-500. 0 [facility] Comment on above: Performed By: #### 2 890799, 8185493, 3501073, 25087855, 3906704, 93328895, 4923533 ####[facility] [address] [place] [address] RBC (Bld) [#/Vol] 4.3 E12/L Normal 4.3-5.9 [facility] Comment on above: Performed By: #### 2 473404, 7436110, 1018110, 93390237, 9988628, 46579776, 0604675 ####[facility] [address] [place] [address] WBC corrected for nucl RBC Auto (Bld) [#/Vol] 10.1 E9/L Normal 4.0-11.0 [facility] Comment on above: Performed By: #### 2 226453, 2389170, 9172554, 85877121, 8150934, 67519555, 0365736 ####[facility] [address] [place] [address] CHEMISTRYOrdered By: SYSTEM SYSTEM on 09-21-2022 Albumin [Mass/Vol] 3.2 g/dL Low 3.3 - 5.0 gm/dL [facility] Remisol Albumin/Globulin [Mass ratio] 1.1 {ratio} Normal 1.1 - 2.2 [facility] ALP [Catalytic activity/Vol] 53 [iU]/d Normal 21 - 98 Int._Unit/ L [facility] ALT No additional P-5'-P [Catalytic activity/Vol] 14 [iU]/d Normal 6 - 46 Int._Unit/ L [facility] Anion gap [Moles/Vol] 14 mmol/L Normal 6 - 16 mEq/L [facility] AST [Catalytic activity/Vol] 23 [iU]/d Normal 5 - 43 Int._Unit/ L [facility] Bilirubin [Mass/Vol] 0.7 mg/dL Normal 0.0 - 1 .1 mg/dL [facility] Calcium [Mass/Vol] 8.8 mg/dL Low 8.9 - 11. 1 mg/dL [facility] Chloride [Moles/Vol] 102 mmol/L Normal 101 - 1 11 mmol/L [facility] CO2 [Moles/Vol] 26 mmol/L Normal 21 - 31 mmol/L [facility] Creatinine [Mass/Vol] 0.8 mg/dL Normal 0.5 - 1.3 mg/dL [facility] GFR/1.73 sq M.predicted among non-blacks MDRD (S/P/Bld) [Vol rate/Area] 76 mL/min/1.73 m2 Normal >=59mL/min /1.73 m2 FT Chem S Globulin (S) [Mass/Vol] 2.9 g/dL Normal 1.4 - 4.0 gm/dL [facility] Glucose [Mass/Vol] 157 mg/dL Normal 55 - 199 mg/dL [facility] Lactate [Mass/Vol] 1.5 mmol/L Normal 0.5 - 2.2 mmol/L [facility] Potassium [Moles/Vol] 3.3 mmol/L Low 3.5 - 5.3 mmol/L [facility] Protein [Mass/Vol] 6.1 g/dL Normal 6.0 - 7.8 gm/dL [facility] Sodium [Moles/Vol] 139 mmol/L Normal 135 - 145 mmol/L [facility] Troponin I.cardiac [Mass/Vol] 18.00 pg/mL Normal 10.10 - 27.10 pg/mL [facility] Urea nitrogen [Mass/Vol] 12 mg/dL Normal 5 - 21 mg/dL [facility] Urea nitrogen/Creatinine [Mass ratio] 15 mg/mg Normal 10 - 20 [facility] Remisol CMPon 09-21-2022 Albumin [Mass/Vol] 3.2 g/dL Low 3.3-5.0 [facility] Comment on above: Performed By: #### 2 768533, 1181695, 6670707, 37178726, 9735613, 15730812, 9020215 ####[facility] [address] [place] [address] Albumin/Globulin (S) [Mass conc ratio] 1.1 Normal 1.1-2.2 [facility] Comment on above: Performed By: #### 2 559041, 5348088, 2575899, 36066589, 7768308, 68139555, 9956337 ####[facility] [address] [place] [address] ALP [Catalytic activity/Vol] 53 Int._Unit/L Normal 21-98 [facility] Comment on above: Performed By: #### 2 850160, 5363047, 4938644, 89180767, 5912609, 11487513, 2694511 ####[facility] [address] [place] [address] ALT No additional P-5'-P [Catalytic activity/Vol] 14 Int._Unit/L Normal 6-46 [facility] Comment on above: Performed By: #### 2 614069, 9389437, 9748483, 95515228, 5393852, 91633287, 2101898 ####[facility] [address] [place] [address] AST [Catalytic activity/Vol] 23 Int._Unit/L Normal 5-43 [facility] Comment on above: Performed By: #### 2 008068, 8265338, 2395615, 46031904, 9148808, 48476644, 4560141 ####[facility] [address] [place] [address] Bilirubin [Mass/Vol] 0.7 mg/dL Normal 0.0-1.1 [facility] Comment on above: Performed By: #### 2 228106, 1439018, 2049077, 49635208, 4596092, 63542293, 2329745 ####[facility] [address] [place] [address] Creatinine [Mass/Vol] 0.8 mg/dL Normal 0.5-1.[address] [facility] Comment on above: Performed By: #### 2 585119, 7055491, 0828574, 40559935, 1084319, 83048743, 7357921 ####[facility] [address] [place] [address] Globulin (S) [Mass/Vol] 2.9 g/dL Normal 1.4-4.0 [facility] Comment on above: Performed By: #### 2 330103, 5465293, 8767179, 97263289, 3005968, 72977332, 8021139 ####[facility] [address] [place] [address] Protein [Mass/Vol] 6.1 g/dL Normal 6.0-7.8 [facility] Comment on above: Performed By: #### 2 083655, 2486524, 3378507, 91030500, 3278243, 90680583, 5769447 ####[facility] [address] [place] [address] Urea nitrogen [Mass/Vol] 12 mg/dL Normal 5-21 [facility] Comment on above: Performed By: #### 2 291585, 8555271, 3208567, 12267387, 6130011, 70256886, 7429014 ####[facility] [address] [place] [address] Urea nitrogen/Creatinine [Mass ratio] 15 No Units Normal 10-20 [facility] Comment on above: Performed By: #### 2 292875, 4480912, 9231801, 28077082, 9282520, 70827477, 9854872 ####[facility] [address] [place] [address] Anion gap [Moles/Vol] 14 mmol/L Normal 6-[address] [facility] Comment on above: Performed By: #### 2 253034, 6653277, 4920061, 79301567, 6622944, 78467630, 5058443 ####[facility] [address] [address] Calcium [Mass/Vol] 8.8 mg/dL Low 8.9-11.1 [facility] Comment on above: Performed By: #### 2 055714, 6187214, 8683276, 55505211, 6598665, 98002149, 9493966 ####[facility] [address] [address] Chloride [Moles/Vol] 102 mmol/L Normal 101-111 [facility] Comment on above: Performed By: #### 2 679890, 8799168, 9575706, 76550456, 8991150, 03659700, 4656762 ####[facility] [address] [place] [address] CO2 [Moles/Vol] 26 mmol/L Normal 21-31 [facility] Comment on above: Performed By: #### 2 111710, 1799938, 1622648, 59048663, 1862108, 89467772, 9569655 ####[facility] [address] [place] [address] Glucose [Mass/Vol] 157 mg/dL Normal 55-199 [facility] Comment on above: Result Comment: If t his glucose result represents a fasting glucose, interpretation should refer to the following reference range: 55-99 mg/dL Performed By: #### 2 838370, 0274415, 9034439, 80193362, 8189690, 21519364, 9911897 ####[facility] [address] [address] Potassium [Moles/Vol] 3.3 mmol/L Low 3.5-5.[address] [facility] Comment on above: Performed By: #### 2 302691, 6030822, 2802965, 93979836, 4060618, 10040675, 2450561 ####[facility] [address] [place] [address] Sodium [Moles/Vol] 139 mmol/L Normal 135-145 [facility] Comment on above: Performed By: #### 2 586736, 9861840, 3781456, 12562893, 4881772, 77448746, 0704532 ####[facility] [address] [place] [address] COAGULATIONOrdered By: Vicente Escobar on 09-21-2022 aPTT Coag (PPP) [Time] 32.3 s Normal 25.1 - 36.5 second(s) [facility] Auto Coag INR Coag (PPP) [Relative time] 1.3 {INR} Invalid Interpretation Code [facility] Auto Coag PT Coag (PPP) [Time] 14.7 s High 9.4 - 1 2.5 second(s) [facility] Auto Coag Consent for Treatmenton 09-11 Consent for Treatment [id number]:127 Normal [facility] HEMATOLOGYOrdered By: SYSTEM SYSTEM on 09-21-2022 Basophils/100 WBC (Bld) 0.8 % Normal 0.0 - 2.0 % [facility] HemeAutoSS Basophils/Leukocytes Auto (Bld) [Pure # fraction] 0.1 E9/L Normal 0.0 - 0.2 E9/L [facility] HemeAutoSS Eosinophils/100 WBC (Bld) 0.7 % Normal 0.0 - 8.0 % [facility] HemeAutoSS Eosinophils/Leukocytes Auto (Bld) [Pure # fraction] 0.1 E9/L Normal 0.0 - 0.5 E9/L [facility] HemeAutoSS Lymphocytes/100 WBC (Bld) 16.2 % Normal 14.0 - 50.0 % [facility] HemeAutoSS Lymphocytes/Leukocytes Auto (Bld) [Pure # fraction] 1.6 E9/L Normal 1.0 - 4.0 E9/L [facility] HemeAutoSS Monocytes/100 WBC (Bld) 8.2 % Normal 4.0 - 14.0 % [facility] HemeAutoSS Monocytes/Leukocytes Auto (Bld) [Pure # fraction] 0.8 E9/L Normal 0.2 - 1.0 E9/L [facility] HemeAutoSS Neutrophils/100 WBC (Bld) 74.1 % Normal 36.0 - 75.0 % [facility] HemeAutoSS Neutrophils/Leukocytes Auto (Bld) [Pure # fraction] 7.5 E9/L Normal 2.0 - 7.5 E9/L [facility] HemeAutoSS HEMATOLOGYOrdered By: Melissa Oakes on 09-21-2022 Erythrocyte distribution width (RBC) [Ratio] 13.8 % Normal 10.9 - 14.2 % [facility] HemeAutoSS Hematocrit (Bld) [Volume fraction] 36.2 % Normal 34.0 - 46.0 % [facility] HemeAutoSS Hemoglobin (Bld) [Mass/Vol] 12.1 g/dL Normal 12.0 - 16.0 gm/dL [facility] HemeAutoSS MCH (RBC) [Entitic mass] 27.8 pg Normal 27.0 - 34.0 pg [facility] HemeAutoSS MCHC (RBC) [Mass/Vol] 33.4 g/dL Normal 31.4 - 36.0 gm/dL [facility] HemeAutoSS MCV (RBC) [Entitic vol] 83.4 fL Normal 80.0 - 100.0 fL [facility] HemeAutoSS Platelet mean volume (Bld) [Entitic vol] 7.6 fL Normal 6.4 - 10.8 fL [facility] HemeAutoSS Platelets (Bld) [#/Vol] 362.0 E9/L Normal 150.0 - 500.0 E9/L [facility] HemeAutoSS RBC (Bld) [#/Vol] 4.3 E12/L Normal 4.3 - 5.9 E12/L [facility] HemeAutoSS WBC corrected for nucl RBC Auto (Bld) [#/Vol] 10.1 E9/L Normal 4.0 - 11.0 E9/L [facility] HemeAutoSS Lactic Acidon 09-21-2022 Lactate [Mass/Vol] 1.5 mmol/L Normal 0.5-2.2 [facility] Comment on above: Performed By: #### 2 542558, 4231308, 9312600, 09308841, 7923071, 38644703, 7063588 ####[facility] [address] [place] [address] PT & PTTon 09-21-2022 aPTT Coag (PPP) [Time] 32.3 second(s) Normal 25.1-36.5 [facility] Comment on above: Result Comment: Para meter 15 days - 4 weeks 1 - 5 months 6 - 11 months 1 - 5 years 6 - 10 years 11 - 17 years PTT Mean: 35.4 (27.6-45.6) Mean: 33.5 (24.8-40.7) Mean: 32.4 (25.1-40.7) Mean: 31.6 (24.0-39.2) Mean: 31.6 (26.9-38.7) Mean: 31.0 (24.6-38.4) Pediatric Reference ranges were obtained from a study by Taye Wyman et al. prepared from 1437 samples obtained at 7 different centers using the same coagulation reagent and instrumentation as [facility]. Currently there are no coagulation studies available worldwide for children to 14 days, and no normal ranges. Heparin therapeutic range (represented by Anti-Factor Xa activity of 0.2 - 0.4 U/mL) corresponds to PTT of 56.6 - 109.0 sec. Performed By: #### 2 304916, 1866506, 9539391, 81410499, 5240221, 76555914, 3114952 ####[facility] [address] [place] [address] INR Coag (PPP) [Relative time] 1.3 {INR} Invalid Interpretation Code [facility] Comment on above: Result Comment: INR results are specifically intended to assess patients stabilized on long-term Anticoagulation therapy suggested INR?s ?Less Intensive Anticoagulation? 2.0 ? 3.0 Conventional Range 3.0 ? 4.5 Performed By: #### 2 914995, 7519360, 0612058, 81954175, 1695991, 95607159, 1124414 ####[facility] [address] [place] [address] PT Coag (PPP) [Time] 14.7 second(s) High 9.4-12.5 [facility] Comment on above: Result Comment: 15 d ays - 4 weeks 1 - 5 months 6 -11 months 1 ? 5 years 6 ? 10 years 11 -17 years Mean: 11.2 (9.5 ? 12.6) Mean: 11.0 (9.7 ? 12.8) Mean: 11.0 (9.8 ? 13.0) Mean: 11.3 (9.9 ? 13.4) Mean: 11.7 (10.0 ? 14.6) Mean: 11.8 (10.0 - 14.1) Pediatric Reference ranges were obtained from a study by Taye Wyman et al. prepared from 1437 samples obtained at 7 different centers using the same coagulation reagent and instrumentation as [facility]. Currently there are no coagulation studies available worldwide for children to 14 days, and no normal ranges. Performed By: #### 2 750044, 2102391, 7150907, 78307889, 5399357, 36549612, 2730991 ####[facility] [address] [place] [address] Troponinon 09-21-2022 Troponin I.cardiac [Mass/Vol] 18.00 pg/mL Normal 10.10-27.1 0 [facility] Comment on above: Result Comment: The 95% CI (Confidence Interval) PPV (Positive Predictive Value) for myocardial infarction in females is 38 pg/mL, in males 51 pg/mL. The results should be used in conjunction with clinical conditions of myocardial infarction. (Access High Sensitivity Troponin I Instructions For Use, [place] [place], October 2017) Performed By: #### 2 309122, 4734756, 5711368, 62374284, 3635452, 20390267, 9628763 ####[facility] [address] [place] [address] URINALYSISOrdered By: Vicente Escobar on 09-21-2022 Bacteria LM Ql (Urine sed) 1+ /HPF Invalid Interpretation Code Trace/HPF [facility] UA Auto SS Bilirubin Ql (U) Negative (09/21/22 11:13 PM) Normal Negative [facility] UA Auto SS Clarity (U) Clear (09/21/22 11:13 PM) Normal Clear [facility] UA Auto SS Color (U) Yellow (09/21/22 11:13 PM) Normal Yellow [facility] UA Auto SS Epithelial cells.squamous LM.HPF (Urine sed) [#/Area] 0-2 /HPF Normal 0-2/HPF [facility] UA Auto SS Glucose Test strip (U) [Mass/Vol] Negative (09/21/22 11:13 PM) Normal Negative [facility] UA Auto SS Hemoglobin Ql (U) Negative (09/21/22 11:13 PM) Normal Negative [facility] UA Auto SS Ketones (U) [Mass/Vol] Trace *NA* (09/21/22 11:13 PM) Invalid Interpretation Code Negative [facility] UA Auto SS [place].plasma/[place] .RBC (Bld) [Mass ratio] 0-3 /HPF Normal 0-3/HPF [facility] UA Auto SS Nitrite Ql (U) Negative (09/21/22 11:13 PM) Normal Negative [facility] UA Auto SS pH (U) 6.0 *NA* (09/21/22 11:13 PM) Invalid Interpretation Code 5.0 - 9.0 [facility]A Auto SS Protein (U) [Mass/Vol] Negative (09/21/22 11:13 PM) Normal Negative [facility] UA Auto SS Specific gravity (U) [Rel density] <=1.005 *NA* (09/21/22 11:13 PM) Invalid Interpretation Code 1.005 - 1.030 FT UA Auto SS UA Spec Desc Clean Catch (09/21/22 11:13 PM) Normal [facility] UA Auto SS Urobilinogen Qn (U) 0.6508052 {Willow'U}/dL Normal 0.0 - 1.0 EU/dL FT UA Auto SS WBC Auto Ql (U) Trace *ABN* (09/21/22 11:13 PM) Invalid Interpretation Code Negative [facility] UA Auto SS WBC LM.HPF (Urine sed) [#/Area] 0-5 /HPF Normal 0-5/HPF [facility] UA Auto SS eGFRon 09-21-2022 GFR/1.73 sq M.predicted among non-blacks MDRD (S/P/Bld) [Vol rate/Area] 76 mL/min/1.73 m2 Normal >=59 [facility] Comment on above: Order Comment: Order added by Discern Expert. Result Comment: [facility] [employer] waldemar kidney disease could be indicated at eGFR's of less than 60 mL/min/1.73m2. Kidney failure is indicated at less than 15 mL/min/1.73m2. Performed By: #### 2 [id number], 1216913, 7711145, 79984092, 9764518, 81937844, 6694151 ####[facility] [address] [place] [address] Enteric Panel by PCRon 09-19 C. coli+jejuni+upsaliensi s DNA DEB+non-probe Ql (Stl) Detected Abnormal [facility] Comment on above: Result Comment: Resu lts Called To Izabel BOWMAN By And Read Back For Confirmation On 09/19/2022 13:18:35 EDT Results Verified By Repeat Analysis Testing was performed utilizing reverse track oiler (RT), polymerase chain reaction (PCR), and array hybridization to detect specific gastrointestinal microbial nucleic acid gene sequences associated with the following pathogenic bacteria and viruses:Campylobacter Group (composed of C. coli, C. jejuni, and C. mishel), Salmonella species, Shigella species (including S. dysenteriae, S. boydii, S. sonnei and S. flexneri), Vibrio Group (composed of V. cholera and V. parahaemolyticus), Yersinia enterocolitica, Norovirus GI/GII, and Rotavirus A. In addition, EPdetects Shiga toxin 1 gene and Shiga toxin 2 gene virulence markers. Shiga toxin producing E. coli (STEC) typically harbor one or both genes that encode for Shiga toxins 1 and 2. Campylobacter group, Salmonella species, Shigella species, Vibrio group, Rotavirus A, Shiga Toxin 1, Shiga Toxin 2, Norovirus GI/GII, and Yersinia enterocolitica were tested by Verigene nulcleic acid test. Performed By: #### 1 [id number], [id number], 622520957, 29720049 ####[facility] [address] [place] [address] E. coli stx1+stx2 genes DEB+non-probe Ql (Stl) Negative Normal [facility] Comment on above: Performed By: #### 1 [id number], [id number], [id number], 42521146 ####[facility] [address] [place] [address] Enteric Panel Intrl QC Pass Normal [facility] Comment on above: Result Comment: Test ing was performed utilizing reverse track oiler (RT), polymerase chain reaction (PCR), and array hybridization to detect specific gastrointestinal microbial nucleic acid gene sequences associated with the following pathogenic bacteria and viruses:Campylobacter Group (composed of C. coli, C. jejuni, and C. mishel), Salmonella species, Shigella species (including S. dysenteriae, S. boydii, S. sonnei and S. flexneri), Vibrio Group (composed of V. cholera and V. parahaemolyticus), Yersinia enterocolitica, Norovirus GI/GII, and Rotavirus A. In addition, EPdetects Shiga toxin 1 gene and Shiga toxin 2 gene virulence markers. Shiga toxin producing E. coli (STEC) typically harbor one or both genes that encode for Shiga toxins 1 and 2. Performed By: #### 1 [id number], [id number], 162142096, 49980349 ####[facility] [address] [place] [address] Norovirus genogroup I+II RNA DEB+non-probe Ql (Stl) Not detected Normal [facility] Comment on above: Performed By: #### 1 [id number], 2344617029, 553632943, 48389845 ####[facility] [address] [place] [address] Rotavirus A RNA DEB+non-probe Ql (Stl) Not detected Normal [facility] Comment on above: Performed By: #### 1 [id number], 3381832145, 498827609, 68099784 ####[address] [place] [address] S. enterica+bongori DNA DEB+non-probe Ql (Stl) Not detected Normal [facility] Comment on above: Result Comment: This test result should be correlated with clinical presentations and medical history by a healthcare provider to determine its clinical significance. Performed By: #### 1 [id number], 1910070441, 544741693, 21671404 ####[facility] [address] [place] [address] Shigella species+EIEC invasion plasmid antigen H ipaH gene DEB+non-probe Ql (Stl) Not detected Normal [facility] Comment on above: Performed By: #### 1 [id number], 9644701951, 808771048, 73295548 ####[address] [address] V. cholerae+parahaemolyti cus+vulnificus DNA DEB+non-probe Ql (Stl) Not detected Normal [facility] Comment on above: Performed By: #### 1 [id number], 0563745591, 712400507, 69636045 ####[address] [address] Y. enterocolitica DNA DEB+non-probe Ql (Stl) Not detected Normal [facility] Comment on above: Performed By: #### 1 [id number], 5750973405, 661869536, 83148930 ####[address] [address] Auto Diffon 09-18-2022 Basophils/100 WBC (Bld) 0.3 % Normal 0.0-2.0 [facility] Comment on above: Order Comment: Order Added by Discern Expert. Performed By: #### 2 043010, 01251049, 7420391, 2163687, 29004573 ####[address] [address] Basophils/Leukocytes Auto (Bld) [Pure # fraction] 0.0 E9/L Normal 0.0-0.2 [facility] Comment on above: Order Comment: Order Added by Discern Expert. Performed By: #### 2 347459, 74022741, 2135669, 4254117, 54789298 ####[address] [place] [address] Eosinophils/100 WBC (Bld) 0.8 % Normal 0.0-8.0 [facility] Comment on above: Order Comment: Order Added by Discern Expert. Performed By: #### 2 886014, 25216494, 3168475, 1256041, 57655383 ####[facility] [address] [place] [address] Eosinophils/Leukocytes Auto (Bld) [Pure # fraction] 0.1 E9/L Normal 0.0-0.5 [facility] Comment on above: Order Comment: Order Added by Discern Expert. Performed By: #### 2 837597, 36762981, 9429111, 4294649, 39729159 ####[address] [place] [address] Lymphocytes/100 WBC (Bld) 12.0 % Low 14.0-50.0 [facility] Comment on above: Order Comment: Order Added by Cheryl Expert. Performed By: #### 2 156195, 77297435, 5581604, 1504569, 82773784 ####[address] [address] Lymphocytes/Leukocytes Auto (Bld) [Pure # fraction] 1.0 E9/L Normal 1.0-4.0 [facility] Comment on above: Order Comment: Order Added by Cheryl Expert. Performed By: #### 2 329462, 88009441, 0561068, 3447577, 25304303 ####[address] [place] [address] Monocytes/100 WBC (Bld) 13.3 % Normal 4.0-14.0 [facility] Comment on above: Order Comment: Order Added by Cheryl Expert. Performed By: #### 2 622479, 44735422, 2276560, 6718889, 62287677 ####[address] [place] [address] Monocytes/Leukocytes Auto (Bld) [Pure # fraction] 1.1 E9/L High 0.2-1.0 [facility] Comment on above: Order Comment: Order Added by Cheryl Expert. Performed By: #### 2 211624, 67091553, 1585270, 8723420, 76981718 ####[facility] [address] [place] [address] Neutrophils/100 WBC (Bld) 73.6 % Normal 36.0-75.0 [facility] Comment on above: Order Comment: Order Added by Discern Expert. Performed By: #### 2 203538, 40620339, 7292338, 0307420, 84347119 ####[facility] [address] [place] [address] Neutrophils/Leukocytes Auto (Bld) [Pure # fraction] 6.3 E9/L Normal 2.0-7.5 [facility] Comment on above: Order Comment: Order Added by Discern Expert. Performed By: #### 2 939440, 90691958, 6863487, 7250196, 15964288 ####[address] [place] [address] C. diff by PCRon 09-18-2022 Clostridium difficile by PCR Negative Normal Negative [facility] Comment on above: Order Comment: Order added by Discern Expert. Result Comment: This test result should be correlated with clinical presentations and medical history by a healthcare provider to determine its clinical significance. Performed By: #### 1 [id number], 7054058708, 293461813, 93076480 ####[address] [place] [address] CBC w/ Auto Diffon Erythrocyte distribution width (RBC) [Ratio] 13.6 % Normal 10.9-14.2 [facility] Comment on above: Performed By: #### 2 928980, 08045684, 8541799, 0479689, 33652059 ####[facility] [address] [place] [address] Hematocrit (Bld) [Volume fraction] 36.6 % Normal 34.0-46.0 [facility] Comment on above: Performed By: #### 2 026673, 41220069, 0556363, 4845258, 26228477 ####[facility] [address] [place] [address] Hemoglobin (Bld) [Mass/Vol] 12.4 g/dL Normal 12.0-16.0 [facility] Comment on above: Performed By: #### 2 483189, 86582612, 2420746, 7910147, 74044242 ####[address] [address] MCH (RBC) [Entitic mass] 28.1 pg Normal 27.0-34.0 [facility] Comment on above: Performed By: #### 2 195954, 58228313, 6401450, 4410561, 48272097 ####[address] [address] MCHC (RBC) [Mass/Vol] 33.9 g/dL Normal 31.4-36.[address] [facility] Comment on above: Performed By: #### 2 798962, 90117548, 5864935, 7042601, 87936012 ####[address] [address] MCV (RBC) [Entitic vol] 82.9 fL Normal 80.0-100.0 [facility] Comment on above: Performed By: #### 2 255667, 73831075, 3129411, 6581490, 23252344 ####[address] [address] Platelet mean volume (Bld) [Entitic vol] 8.2 fL Normal 6.4-10.8 [facility] Comment on above: Performed By: #### 2 805577, 47551422, 3007028, 0378285, 23414884 ####[address] [address] Platelets (Bld) [#/Vol] 328.0 E9/L Normal 150.0-500. 0 [facility] Comment on above: Performed By: #### 2 757775, 58475535, 2254453, 5234971, 99261090 ####[address] [place] [address] RBC (Bld) [#/Vol] 4.4 E12/L Normal 4.3-5.9 [facility] Comment on above: Performed By: #### 2 787946, 26076616, 2673893, 2775338, 10952298 ####[facility] [address] [place] [address] WBC corrected for nucl RBC Auto (Bld) [#/Vol] 8.5 E9/L Normal 4.0-11.0 [facility] Comment on above: Performed By: #### 2 783168, 49384445, 3324178, 3694284, 82552415 ####[facility] [address] [place] [address] CDiff PCRon 09-18-2022 Cdiff Specimen Acceptable Acceptable Normal [facility] Comment on above: Performed By: #### 1 [id number], 1793110907, 473774892, 38067088 ####[facility] [address] [place] [address] Order Cancelled No, PCR to follow Normal [facility] Comment on above: Performed By: #### 1 [id number], 9709418478, 722354306, 30429891 ####[facility] [address] [place] [address] CHEMISTRYOrdered By: SYSTEM SYSTEM on 09-18-2022 Albumin [Mass/Vol] 3.1 g/dL Low 3.3 - 5.0 gm/dL [facility] Remisol Albumin/Globulin [Mass ratio] 0.9 {ratio} Low 1.1 - 2.2 [facility] Remisol ALP [Catalytic activity/Vol] 63 [iU]/d Normal 21 - 98 Int._Unit/ L [facility] Remisol ALT No additional P-5'-P [Catalytic activity/Vol] 12 [iU]/d Normal 6 - 46 Int._Unit/ L [facility] Anion gap [Moles/Vol] 15 mmol/L Normal 6 - 16 mEq/L [facility] AST [Catalytic activity/Vol] 21 [iU]/d Normal 5 - 43 Int._Unit/ L [facility] Bilirubin [Mass/Vol] 1.0 mg/dL Normal 0.0 - 1 .1 mg/dL [facility] Calcium [Mass/Vol] 8.8 mg/dL Low 8.9 - 11. 1 mg/dL [facility] Chloride [Moles/Vol] 103 mmol/L Normal 101 - 1 11 mmol/L [facility] CO2 [Moles/Vol] 23 mmol/L Normal 21 - 31 mmol/L [facility] Creatinine [Mass/Vol] 1.1 mg/dL Normal 0.5 - 1.3 mg/dL [facility] Remisol GFR/1.73 sq M.predicted among non-blacks MDRD (S/P/Bld) [Vol rate/Area] 52 mL/min/1.73 m2 Low >=59mL/min /1.73 m2 FT Chem S Globulin (S) [Mass/Vol] 3.3 g/dL Normal 1.4 - 4.0 gm/dL [facility] Remisol Glucose [Mass/Vol] 74 mg/dL Normal 55 - 199 mg/dL [facility] Potassium [Moles/Vol] 3.5 mmol/L Normal 3.5 - 5.3 mmol/L [facility] Protein [Mass/Vol] 6.4 g/dL Normal 6.0 - 7.8 gm/dL [facility] Sodium [Moles/Vol] 137 mmol/L Normal 135 - 145 mmol/L [facility] Urea nitrogen [Mass/Vol] 27 mg/dL High 5 - 21 mg/dL [facility] Urea nitrogen/Creatinine [Mass ratio] 24 mg/mg High 10 - 20 [facility] Remisol CMPon 09-18-2022 Anion gap [Moles/Vol] 15 mmol/L Normal 6-[address] [facility] Comment on above: Order Comment: JOHN villalba is starting a line, was given supplies per EL. Performed By: #### 2 909224, 23505170, 3017016, 2620516, 20989804 ####[facility] [address] [place] [address] Calcium [Mass/Vol] 8.8 mg/dL Low 8.9-11.1 [facility] Comment on above: Order Comment: JOHN villalba is starting a line, was given supplies per EL. HH Performed By: #### 2 828220, 52324392, 2755062, 0338264, 90291889 ####[facility] [address] [place] [address] Chloride [Moles/Vol] 103 mmol/L Normal 101-111 [facility] Comment on above: Order Comment: JHON villalba is starting a line, was given supplies per EL. HH Performed By: #### 2 198080, 07961873, 0232739, 9448896, 33352664 ####[facility] [address] [place] [address] CO2 [Moles/Vol] 23 mmol/L Normal 21-31 [facility] Comment on above: Order Comment: JOHN villalba is starting a line, was given supplies per EL. HH Performed By: #### 2 826537, 18718598, 3209838, 8863900, 01949351 ####[facility] [address] [place] [address] Glucose [Mass/Vol] 74 mg/dL Normal 55-199 [facility] Comment on above: Order Comment: JOHN villalba is starting a line, was given supplies per EL. HH Result Comment: If t his glucose result represents a fasting glucose, interpretation should refer to the following reference range: 55-99 mg/dL Performed By: #### 2 967230, 00404382, 7196794, 4940212, 96645657 ####[facility] [address] [place] [address] Potassium [Moles/Vol] 3.5 mmol/L Normal 3.5-5.[address] [facility] Comment on above: Order Comment: JOHN villalba is starting a line, was given supplies per EL. HH Performed By: #### 2 205369, 76519198, 0231995, 9162295, 40025340 ####[facility] [address] [address] Sodium [Moles/Vol] 137 mmol/L Normal 135-145 [facility] Comment on above: Order Comment: JOHN villalba is starting a line, was given supplies per EL. HH Performed By: #### 2 930222, 55021479, 9762959, 8698415, 91972429 ####[facility] [address] [place] [address] Albumin [Mass/Vol] 3.1 g/dL Low 3.3-5.0 [facility] Comment on above: Order Comment: JOHN villalba is starting a line, was given supplies per EL. HH Performed By: #### 2 077988, 02226075, 8133852, 9341372, 01739703 ####[address] [place] [address] Albumin/Globulin (S) [Mass conc ratio] 0.9 Low 1.1-2.2 [facility] Comment on above: Order Comment: JOHN villalba is starting a line, was given supplies per EL. HH Performed By: #### 2 631098, 66985394, 4317657, 1808931, 16183605 ####[facility] [address] [place] [address] ALP [Catalytic activity/Vol] 63 Int._Unit/L Normal 21-98 [facility] Comment on above: Order Comment: JOHN villalba is starting a line, was given supplies per EL. HH Performed By: #### 2 596845, 70280625, 0577509, 6132682, 85312651 ####[facility] [address] [place] [address] ALT No additional P-5'-P [Catalytic activity/Vol] 12 Int._Unit/L Normal 6-46 [facility] Comment on above: Order Comment: JOHN villalba is starting a line, was given supplies per EL. HH Performed By: #### 2 800521, 82774256, 2116172, 6309112, 23091949 ####[facility] [address] [place] [address] AST [Catalytic activity/Vol] 21 Int._Unit/L Normal 5-43 [facility] Comment on above: Order Comment: JOHN villalba is starting a line, was given supplies per EL. HH Performed By: #### 2 873274, 49889545, 2543949, 9309797, 57074954 ####[facility] [address] [place] [address] Bilirubin [Mass/Vol] 1.0 mg/dL Normal 0.0-1.1 [facility] Comment on above: Order Comment: JOHN villalba is starting a line, was given supplies per EL. HH Performed By: #### 2 264814, 35550792, 5444458, 6850988, 64480275 ####[facility] [address] [place] [address] Creatinine [Mass/Vol] 1.1 mg/dL Normal 0.5-1.[address] [facility] Comment on above: Order Comment: JOHN villalba is starting a line, was given supplies per EL. HH Performed By: #### 2 739194, 19093126, 4936456, 3078807, 04238831 ####[facility] [address] [place] [address] Globulin (S) [Mass/Vol] 3.3 g/dL Normal 1.4-4.0 [facility] Comment on above: Order Comment: JOHN villalba is starting a line, was given supplies per EL. HH Performed By: #### 2 757514, 91458899, 0607718, 4092878, 25120785 ####[facility] [address] [place] [address] Protein [Mass/Vol] 6.4 g/dL Normal 6.0-7.8 [facility] Comment on above: Order Comment: JOHN villalba is starting a line, was given supplies per EL. HH Performed By: #### 2 132038, 48944052, 7241727, 7408133, 22505575 ####[facility] [address] [place] [address] Urea nitrogen [Mass/Vol] 27 mg/dL High 5-21 [facility] Comment on above: Order Comment: JOHN villalba is starting a line, was given supplies per EL. HH Performed By: #### 2 929167, 86676639, 7020448, 8362911, 13805505 ####[facility] [address] [place] [address] Urea nitrogen/Creatinine [Mass ratio] 24 No Units High 10-20 [facility] Comment on above: Order Comment: JOHN villalba is starting a line, was given supplies per EL. HH Performed By: #### 2 889007, 85041586, 2794282, 6820067, 49654750 ####[facility] [address] [place] [address] CT Abdomen/Pelvis w/ Contras ton 09-18-2022 CT Abdomen/Pelvis w/ Contrast Exam Date/Time: 09/18/2022 11:27 EDT Reason for Exam: Abdominal pain, acute, nonlocalized;Other (please specify) Report IMPRESSION: There is mild intra and extrahepatic bile duct dilatation. The common bile duct measures 8 mm. There is air, pneumatobilia, in the distal common bile duct, of uncertain etiology. There are no radiopaque biliary stones. The gallbladder is distended with fluid and contains partially calcified stones similar to the prior study. There is no surrounding inflammation. There is bowel wall thickening and mild surrounding inflammation involving the ascending colon indicating nonspecific colitis, enteritis. The colon wall has a maximum diameter of 11 mm. EXAMINATION: CT Abdomen/Pelvis w/ Contrast HISTORY: Abdominal pain, acute, nonlocalized COMPARISON: CT abdomen pelvis from 06/03/2017. TECHNIQUE: Contiguous axial CT sections of the abdomen and pelvis were obtained after IV contrast administration of 100 mL of Iopamidol, Isovue-300. Sagittal and coronal reformats have been obtained. All CT scans at this facility use dose modulation, iterative reconstruction, and/or weight based dosing when appropriate to reduce radiation dose to as low as reasonably achievable. FINDINGS Lung bases:Visualized lung bases show no significant pathology Liver: The liver is normal in size and enhancement. There are no focal solid or cystic lesions. There is mild intra and extrahepatic bile duct dilatation. The common bile duct measures 8 mm. There is air in the distal common bile duct. There are no radiopaque biliary stones. Gallbladder: There are gallbladder contains no calcified stones similar to the prior study measuring up to 2.5 cm in greatest diameter. The gallbladder is distended with fluid without definite surrounding inflammation. Spleen: There are no focal lesions or calcifications in the spleen. There is no splenomegaly Pancreas: The pancreas is normal in size and attenuation without focal lesions or dilatation of the pancreatic duct. Adrenal glands are negative. Report Kidneys: There are no solid renal lesions. There are prompt bilateral nephrograms after IV contrast administration with prompt excretion into nondilated collecting systems. There is no hydroureter. Bowel: There are no distended loops of bowel. There is no CT evidence of appendicitis. There is bowel wall thickening ascending colon measuring up to 11 mm with mild inflammation indicating nonspecific colitis, enteritis. There is diverticulosis of the descending sigmoid colon without surrounding inflammation. Nodes: No lymphadenopathy. Aorta: There is no abdominal aortic aneurysm. Peritoneum: No free fluid or free air. Pelvis: The pelvic organs are not identified and may be surgically absent. The urinary bladder is within normal limits. Abdominal wall: There is a midline ventral hernia containing fat with maximum diameter 7 x 8 cm similar to the prior study. Bones :The visualized bones are demineralized. There is chronic vertebral body compression fracture at T12 present since the prior study. There is mild loss vertebral body height at L5 which may be subacute to chronic. Status post intramedullary nail fixation of the left femur. Soft tissues: The soft tissues are unremarkable. Ordering Provider: Memo Catherine FINAL REPORT Dictated: 09/18/2022 11:46 am Gaston Reddy MD, V. Signed (Electronic Signature): 09/18/2022 11:46 am Signed by: Gaston Reddy MD, V. Transcribed by: SOCRATES Technologist: JACEK Technical Comments GFR (mL/min/1/73m2) 52 Contrast: Isovue 300 Contrast amount in ml's: 100 Normal [facility] Consent for Treatmenton Consent for Treatment [id number]:127 Normal [facility] Discharge Instructionson Discharge Instructions [id number]:127 Normal [facility] ED Clinical Summaryon 2022 ED Clinical Summary (Inserted Image. Myriam ble to display) [address] [address] ED Clinical Summary Person Information Name: LB MUSE [place] Age: 77 Years : 1945 Sex: Female Language: Cambodian PCP: She FRY, Danielle Albarran Marital Status: Visit Id: Visit Reason: Diarrhea; Vomiting; Nausea; DIARRHEA FOR 10 DAYS, ABD PAIN Speciality: Acuity: 3 Enc Type: Emergency Med Service: Emergency Arrival: 09/18/2022 09:34:14 Discharge: 09/18/2022 14:26:58 LOS: 000 04:52 Checkin: 09/18/2022 09:34:14 Checkout: 09/18/2022 14:26:58 Dispo Type: Home (Routine DC) EVENTS: Event Name Event Status Request Date/Time Start Date/Time Complete Date/Time Arrive Complete 09/18/2022 09:34:14 09/18/2022 09:34:14 09/18/2022 09:34:14 Document Home Meds Request 09/18/2022 09:34:14 Triage Complete 09/18/2022 09:34:14 09/18/2022 09:51:14 09/18/2022 09:51:14 Bed Assign Complete 09/18/2022 09:42:57 09/18/2022 09:42:57 09/18/2022 09:42:57 Dr Exam Complete 09/18/2022 09:42:57 09/18/2022 09:43:25 09/18/2022 09:43:25 RN Exam Complete 09/18/2022 09:42:57 09/18/2022 09:56:34 09/18/2022 09:56:34 Registration Complete 09/18/2022 09:43:25 09/18/2022 09:53:39 09/18/2022 09:53:39 Meds Admin Complete 09/18/2022 09:51:11 09/18/2022 10:10:00 Pending Labs Inlab 09/18/2022 09:51:11 Lab Complete 09/18/2022 09:51:11 09/18/2022 11:01:30 CT Complete 09/18/2022 09:51:11 09/18/2022 11:03:08 09/18/2022 11:27:51 Reg Complete Request 09/18/2022 09:53:39 Reg Bed Request Complete 09/18/2022 09:53:39 09/18/2022 09:53:39 09/18/2022 09:53:39 Fall Risk Request 09/18/2022 09:56:34 Pending Labs Complete 09/18/2022 10:21:52 09/18/2022 10:21:52 09/18/2022 10:38:54 Lab Complete 09/18/2022 10:21:52 09/18/2022 10:21:52 09/18/2022 10:38:54 Pending Labs Complete 09/18/2022 10:59:40 09/18/2022 10:59:40 09/18/2022 11:01:30 Pending Labs Complete 09/18/2022 10:59:41 09/18/2022 10:59:41 09/18/2022 11:01:40 Lab Complete 09/18/2022 10:59:41 09/18/2022 10:59:41 09/18/2022 11:01:40 Pending Labs Complete 09/18/2022 12:41:39 09/18/2022 12:41:39 09/18/2022 12:41:39 Pending Labs Complete 09/18/2022 12:42:03 09/18/2022 12:42:03 09/18/2022 12:42:03 Discharge Complete 09/18/2022 13:45:22 09/18/2022 14:27:07 09/18/2022 14:27:07 Transfer Complete 09/18/2022 14:27:07 09/18/2022 14:27:07 09/18/2022 14:27:07 ADDRESS: [address] [place] [id number] PHYS DOC NOTES: MEDICAL INFORMATION: Prescriptions Given: New Medications [id number], [address] [place], [place] [id number], [phone] metronidazole (Flagyl 500 mg Tab) 1 Tablets By Mouth 3 times a day. Take one tab by mouth three times a day. Refills: 0. ondansetron (Zofran 4 mg Tab) 1 Tablets By Mouth every 6 hours as needed Nausea. Take one tab by mouth every six hours as needed for nausea. Refills: 0. Medications to Continue with No Changes Other Medications cholecalciferol (Vitamin D 1000 intl units Tab) 1 Tablets By Mouth every day. glipiZIDE 10 Milligram By Mouth 2 times a day. losartan 50 Milligram By Mouth every day. metformin 1,000 Milligram By Mouth 2 times a day. metoprolol (metoprolol 50 mg ER Tab) 1 Tablets By Mouth every day. PATIENT EDUCATION INFORMATION: Instructions: Nausea and Vomiting, Adult, Xjqq-pw-Wzdf; Colitis Follow up: With: Address: When: [facility], [address] [place] [address] Business (1) In 3 days 09/21/2022 With: Address: When: Danielle Nowak [address] [place] [address] Business (1) In 3 days DIAGNOSIS: Colitis; Vomiting Normal [facility] ED Note-Physicianon 09-19-19 ED Note-Physician Basic Information Time Seen: Memo Catherine DO 09/18/2022 09:43 Chief Complaint pt to ER with c/o abdominal pain, nausea, vomiting, and diarrhea for the last 10 days. History of Present Illness 77 female presents emergency department with abdominal pain nausea vomiting diarrhea over the last 10 days. Patient states that this has been ongoing for 10 days she was seen at the [facility] 2 days ago had blood work done gave a stool culture she does not have the results of this. She states that she was feeling better but then started to feel worse again last night with severe diarrhea as well as 2 episodes of vomiting. She is not taking any medications for this. She did check her blood sugar this morning it was 58 she is a diabetic who takes metformin and glipizide. She reports no abdominal pain with this does have some discomfort no urinary symptoms. No C. difficile risk factors or prior history no infectious sources or possible food exposures or sick contacts that she is aware of. There was some concern as to whether there was blood in the stool or not she cannot really tell me if that she did not see it thought there was maybe some blood but also stated that she had some hemorrhoids but she could not give an accurate description of the stool. No other aggravating or relieving factors no other associated symptoms no other prior treatments or complaints. Family: Reviewed and noncontributory Social: lives at home Review of systems negative unless otherwise specified in the HPI. Physical Exam Vitals & Measurements T: 36.6 ?C(Oral) HR: 76(Peripheral) RR: 16 BP: 107/49 SpO2: 97% HT: 160 cm WT: 68 kg BMI: 26.56 General: The patient appears well and in no apparent distress. Patient is resting comfortably on cart. Skin: Warm, dry, no pallor noted. Head: Normocephalic, atraumatic Neck: No JVD Eye: PERRLA, EOMI ENT: Moist mucus membranes Cardiovascular: Regular rate normal peripheral perfusion Respiratory: No respiratory distress no accessory muscle use no obvious audible wheezing Chest Wall: no deformity Musculoskeletal: normal ROM, no deformity, no swelling GI: Soft no obvious distention. No rebound or rigidity. No guarding. No tenderness. Neurological: A&O moves all extremities equal strength and symmetry Psychiatric: Cooperative and appropriate Medical Decision Making MEDICAL DECISION MAKING Number and Complexity of Problems Differential Diagnosis: MDM Data External documents reviewed: My EKG interpretation: in chart if applicable My CT interpretation: in chart if applicable My X-ray interpretation: in chart if applicable My Ultrasound interpretation: Decision rules/scores evaluated: Discussed with: Treatment and Disposition ED Course: Work-up in the ER has been reviewed and noted. CT does reveal findings concerning for colitis which clinically fits the patient's picture. However the patient does have nonspecific dilatation of the biliary system with pneumatic bili as well. This was discussed with the patient she does not believe that she is ever had any instrumentation. I also discussed this with Dr. Forman who stated that he will see the patient in the outpatient setting especially given that she has no right upper quadrant pain no fevers no white count. We did obtain the C. difficile sample here which is pending. I tried to review records from [facility] they stated that the stool cultures are not back at this time. Therefore patient will be treated with Zofran for nausea Flagyl for colitis and follow-up the outpatient setting return to ER symptoms change or worsen. She was able to tolerate p.o. challenge here. Shared decision making: Code status: Assessment/Plan Colitis (K52.9: Noninfective gastroenteritis and colitis, unspecified) Vomiting (R11.10: Vomiting, unspecified) Orders: metronidazole, 500 mg = 1 tab(s), Oral, TID, Take one tab by mouth three times a day, # 21 tab(s), Refills(s) 0, Pharmacy: [id number], 160, cm, 09/18/22 9:51:00 EDT, Height/Length Dosing, 68, kg, 09/18/22 9:51:00 EDT, Weight Dosing ondansetron, 4 mg = 1 tab(s), Oral, q6hr, PRN Nausea, Take one tab by mouth every six hours as needed for nausea, # 10 tab(s), Refills(s) 0, Pharmacy: [facility] #[id number], 160, cm, 09/18/22 9:51:00 EDT, Height/Length Dosing, 68, kg, 09/18/22 9:51:00 EDT, Weight Dosing ondansetron, 4 mg = 2 mL, Injection, IV Push, Once, Stop date 09/18/22 9:50:00 EDT, STAT, Start date 09/18/22 9:50:00 EDT, 09/18/22 9:50:00 EDT Sodium Chloride 0.9% intravenous solution, 1,000 mL, Soln-IV, IV, Once, Stop date 09/18/22 9:50:00 EDT, STAT, Start date 09/18/22 9:50:00 EDT, Infuse over 61, minute(s) Automated Diff CBC w/ Auto Diff Clostridium Difficile PCR Comprehensive Metabolic Panel CT Abdomen/Pelvis w/ Contrast eGFR Enteric Panel by PCR Extra Blue Tube Extra SST Tube Fecal WBC Lactoferrin Morphology Medications Administered Given NS 1000 ml Bolus, 1000 mL, IV ondansetron 4 mg/2 mL Inj, 4 mg, I (more content not included)... Normal [facility] Comment on above: Result Comment: Elec tronically Signed By: Yajaira Catherine DO.maria del rosario\Date and Time Signed: 09/18/22 13:47 EDT ED Patient Education Noteon 09-18-2022 ED Patient Education Note Gastroenterology Nausea and Vomiting, Adult Nausea is feeling that you have an upset stomach and that you are about to vomit. Vomiting is when food in your stomach forcefully comes out of your mouth. Vomiting can make you feel weak. If you vomit, or if you are not able to drink enough fluids, you may not have enough water in your body (get dehydrated). If you do not have enough water in your body, you may: ? Feel tired. ? Feel thirsty. ? Have a dry mouth. ? Have cracked lips. ? Pee (urinate) less often. Older adults and people with other diseases or a weak body defense system (immune system) are at higher risk for not having enough water in the body. If you feel like you may vomit or you vomit, it is important to follow instructions from your doctor about how to take care of yourself. Follow these instructions at home: Watch your symptoms for any changes. Tell your doctor about them. Eating and drinking ? Take an ORS (oral rehydration solution). This is a drink that is sold at pharmacies and stores. ? Drink clear fluids in small amounts as you are able, such as: ? Water. ? Ice chips. ? Fruit juice that has water added (diluted fruit juice). ? Low-calorie sports drinks. ? Eat bland, rhuw-cz-oaukgp foods in small amounts as you are able, such as: ? Bananas. ? Applesauce. ? Rice. ? Low-fat (lean) meats. ? [place]. ? Crackers. ? Avoid drinking fluids that have a lot of sugar or caffeine in them. This includes energy drinks, sports drinks, and soda. ? Avoid alcohol. ? Avoid spicy or fatty foods. General instructions ? Take pytw-rkp-kfgzfne and prescription medicines only as told by your doctor. ? Drink enough fluid to keep your pee (urine) pale yellow. ? Wash your hands often with soap and water for at least 20 seconds. If you cannot use soap and water, use hand director embalmer. ? Make sure that everyone in your home washes their hands well and often. ? Rest at home until you feel better. ? Watch your condition for any changes. ? Take slow and deep breaths when you feel like you may vomit. ? Keep all follow-up visits. Contact a doctor if: ? Your symptoms get worse. ? You have new symptoms. ? You have a fever. ? You cannot drink fluids without vomiting. ? You feel like you may vomit for more than 2 days. ? You feel light-headed or dizzy. ? You have a headache. ? You have muscle cramps. ? You have a rash. ? You have pain while peeing. Get help right away if: ? You have pain in your chest, neck, arm, or jaw. ? You feel very weak or you faint. ? You vomit again and again. ? You have vomit that is bright red or looks like black coffee grounds. ? You have bloody or black poop (stools) or poop that looks like tar. ? You have a very bad headache, a stiff neck, or both. ? You have very bad pain, cramping, or bloating in your belly (abdomen). ? You have trouble breathing. ? You are breathing very quickly. ? Your heart is beating very quickly. ? Your skin feels cold and clammy. ? You feel confused. ? You have signs of losing too much water in your body, such as: ? Dark pee, very little pee, or no pee. ? Cracked lips. ? Dry mouth. ? Sunken eyes. ? Sleepiness. ? Weakness. These symptoms may be an emergency. Get help right away. Call 911. ? Do not wait to see if the symptoms will go away. ? Do not drive yourself to the hospital. Summary ? Nausea is feeling that you have an upset stomach and that you are about to vomit. Vomiting is when food in your stomach comes out of your mouth. ? Follow instructions from your doctor about eating and drinking. ? Take npqn-acu-dfqcpst and prescription medicines only as told by your doctor. ? Contact your doctor if your symptoms get worse or you have new symptoms. ? Keep all follow-up visits. This information is not intended to replace advice given to you by your health care provider. Make sure you discuss any questions you have with your health care provider. Document Revised: 09/04/2021 Document Reviewed: 09/04/2021 adRise Patient Education ? 2022 [employer]. Colitis Colitis is a condition in which the colon is inflamed. It can cause diarrhea, blood in the stool, and abdominal pain. Colitis can last a short time (be acute), or it may last a long time (become chronic). What are the causes? This condition may be caused by: ? Infections from viruses or bacteria. ? A reaction to medicine. ? Certain autoimmune diseases, such as Crohn's disease or ulcerative colitis. ? Radiation treatment. ? Decreased blood flow to the bowel (ischemia). What are the signs or symptoms? Symptoms of this condition include: ? Diarrhea, blood in the stool, or black, tarry stool. ? Pain in the joints or abdominal pain. ? Fever or fatigue. ? Vomiting. ? Weight loss. ? Bloating. ? Having fewer bowel movements than usual. ? (more content not included)... Normal [facility] ED Patient Summaryon 023 ED Patient Summary (Inserted Image. Myriam ble to display) [address] [address] Patient Discharge Instructions Person Information Name: LB MUSE Age: 77 Years Arrival Date: 09/18/2022 09:34:14 Discharge Diagnosis: Colitis; Vomiting Primary Care Physician: Danielle Nowak MD Provider Information Primary Provider: Memo Catherine DO Advanced Tuberculosis Specialist:None The exam and treatment you received in the Emergency Department were for an urgent problem and are not intended as complete care. It is important that you follow up with a doctor, nurse practitioner, or physician?s home care assistant for ongoing care. If your symptoms become worse or you do not improve as expected and you are unable to reach your usual health care provider, you should return to the Emergency Department. We are available 24 hours a day. LB MUSE has been given the following list of patient education materials, prescriptions and follow-up instructions: Follow-up Instructions: With: Address: When: [facility], [address] [place] [address] Business (1) In 3 days 09/21/2022 With: Address: When: Danielle Nowak [address] [place] [address] Business (1) In 3 days In the event that this physician does not participate in your insurance network, please consult with your insurance company to find a nearby participating provider. Patient Education Materials: Nausea and Vomiting, Adult, Saxi-gi-Vnap; Colitis A MESSAGE TO ALL PATIENTS REGARDING OPIOIDS PRESCRIPTION OPIOIDS: WHAT YOU NEED TO KNOW Prescription opioids can be used to help relieve ziedlxzz-ke-gmeotn pain and are often prescribed following a surgery or injury, or for certain health conditions. These medications can be an important part of the treatment but also come with serious risks. It is important to work with your healthcare provider to make sure you are getting the safest, most effective care. WHAT ARE THE RISKS AND SIDE EFFECTS OF OPIOID USE? Prescription opioids carry serious risks of addiction and overdose, especially with prolonged use. An opioid overdose, often marked by slowed breathing, can cause sudden . The use of prescription opioids can have a number of side effects as well, even when taken as directed: ? Tolerance?meaning you might need to take more of the medication for the same pain relief ? Physical dependence?meaning you have symptoms of withdrawal when a medication is stopped ? Increased sensitivity to pain ? Constipation ? Nausea, vomiting, and dry mouth ? Sleepiness and dizziness ? Confusion ? Depression ? Low levels of testosterone that can result in lower sex drive, energy, and strength ? Itching and sweating RISKS ARE GREATER WITH: ? History of drug misuse, substance use disorder, or overdose ? Mental health conditions (such as depression or anxiety) ? Sleep apnea ? Older age (65 years and older) ? Avoid alcohol while taking prescription opioids. Also, unless specifically advised by your health care provider, medications to avoid include: ? Benzodiazepines (such as Xanax or Valium) ? Muscle relaxants (such as Soma or Flexeril) ? Hypnotics (such as Ambien or Lunesta) ? Other prescription opioids KNOW YOUR OPTIONS Talk to your health care provider about ways to manage your pain that don?t involve prescription opioids. Some of these options may actually work better and have fewer risks and side effects. Options may include: ? Pain relievers such as acetaminophen, ibuprofen, and naproxen ? Some medication that are also used for depression or seizures ? Physical therapy and exercise ? Cognitive behavioral therapy, a psychological, goal-directed approach, in which patients learn how to modify physical, behavioral, and emotional triggers of pain and stress. IF YOU ARE PRESCRIBED OPIOIDS FOR PAIN: ? Never take opioids in greater amounts or more often than prescribed. ? Follow up with your primary health care provider. o Work together to create a plan on how to manage your pain. o Talk about ways to help manage your pain that don?t involve prescription opioids. o Talk about any and all concerns and side effects. ? Help prevent misuse and abuse o Never sell or share prescription opioids. o Never use another person?s prescription opioids. ? Store prescription opioids in a secure place and out of reach of others (this may include visitors, children, friends, and family). ? Safely dispose of unused prescription opioids: Find your community drug take-back program or your pharmacy mail-back program, or flush them down the toilet, following guidance from the Food and Drug Administration (www.fda.gov/Drugs/Resourc esForYou). ? Visit www.cdc.gov/drugoverdose to learn about the risks of opioids abuse and overdose. ? If you believe you may be struggling wi (more content not included)... Normal [facility] Fecal WBC Lactoferrinon Fecal WBC Lactoferrin Positive Abnormal Negative [facility] Comment on above: Result Comment: The semi-quantitative detection of elevated levels of fecal lactoferrin is a marker for fecal leukocytes and an indication of intestinal inflammation. Performed By: #### 1 [id number] ####[facility] [id number] [place] [address] HEMATOLOGYOrdered By: SYSTEM SYSTEM on 09-18-2022 Basophils/100 WBC (Bld) 0.3 % Normal 0.0 - 2.0 % [facility] Basophils/Leukocytes Auto (Bld) [Pure # fraction] 0.0 E9/L Normal 0.0 - 0.2 E9/L [facility] Eosinophils/100 WBC (Bld) 0.8 % Normal 0.0 - 8.0 % [facility] Eosinophils/Leukocytes Auto (Bld) [Pure # fraction] 0.1 E9/L Normal 0.0 - 0.5 E9/L [facility] Lymphocytes/100 WBC (Bld) 12.0 % Low 14.0 - 50.0 % [facility] Lymphocytes/Leukocytes Auto (Bld) [Pure # fraction] 1.0 E9/L Normal 1.0 - 4.0 E9/L [facility] Monocytes/100 WBC (Bld) 13.3 % Normal 4.0 - 14.0 % [facility] Monocytes/Leukocytes Auto (Bld) [Pure # fraction] 1.1 E9/L High 0.2 - 1.0 E9/L [facility] Neutrophils/100 WBC (Bld) 73.6 % Normal 36.0 - 75.0 % [facility] Neutrophils/Leukocytes Auto (Bld) [Pure # fraction] 6.3 E9/L Normal 2.0 - 7.5 E9/L [facility] HEMATOLOGYOrdered By: Glenna Burton on 09-18-2022 Erythrocyte distribution width (RBC) [Ratio] 13.6 % Normal 10.9 - 14.2 % [facility] Hematocrit (Bld) [Volume fraction] 36.6 % Normal 34.0 - 46.0 % [facility] Hemoglobin (Bld) [Mass/Vol] 12.4 g/dL Normal 12.0 - 16.0 gm/dL [facility] MCH (RBC) [Entitic mass] 28.1 pg Normal 27.0 - 34.0 pg [facility] MCHC (RBC) [Mass/Vol] 33.9 g/dL Normal 31.4 - 36.0 gm/dL [facility] MCV (RBC) [Entitic vol] 82.9 fL Normal 80.0 - 100.0 fL [facility] Morphology Zia (Bld) [Interp] Normal (09/18/22 10:12 AM) Normal [facility] Platelet mean volume (Bld) [Entitic vol] 8.2 fL Normal 6.4 - 10.8 fL [facility] Platelets (Bld) [#/Vol] 328.0 E9/L Normal 150.0 - 500.0 E9/L [facility] Platelets Large LM Ql (Bld) Present (09/18/22 10:12 AM) Normal [facility] RBC (Bld) [#/Vol] 4.4 E12/L Normal 4.3 - 5.9 E12/L [facility] HemeAutoSS Toxic Gran Present (09/18/22 10:12 AM) Normal [facility] HemeManSS WBC corrected for nucl RBC Auto (Bld) [#/Vol] 8.5 E9/L Normal 4.0 - 11.0 E9/L [facility]eAutoSS MICRO OTHER TESTSOrdered By: Doris Vogt on 09-18-2022 Fecal WBC Lactoferrin Positive *ABN* (09/18/22 1:13 PM) Invalid Interpretation Code Negative [facility] Man Sero Morphon 09-18-2022 Morphology Zia (Bld) [Interp] Normal Normal [facility] Comment on above: Order Comment: Order Added by Discern Expert. Performed By: #### 2 [id number] ####[facility] [address] [place] [address] Platelets Large LM Ql (Bld) Present Normal [facility] Comment on above: Order Comment: Order Added by Discern Expert. Performed By: #### 2 [id number] ####[facility] [id number] [place] [address] Toxic Gran Present Normal [facility] Comment on above: Order Comment: Order Added by Discern Expert. Performed By: #### 2 [id number] ####[facility] [address] [place] [address] eGFRon 09-18-2022 GFR/1.73 sq M.predicted among non-blacks MDRD (S/P/Bld) [Vol rate/Area] 52 mL/min/1.73 m2 Low >=59 [facility] Comment on above: Order Comment: Order added by Discern Expert. Result Comment: [facility] waldemar kidney disease could be indicated at eGFR's of less than 60 mL/min/1.73m2. Kidney failure is indicated at less than 15 mL/min/1.73m2. Performed By: #### 2 [id number] ####[facility] [address] [place] [address] Office Visit (Cardiology)on 09-01-2022 Follow-up visit Diagnoses/Problems Assessed Hypertension, benign (401.1) (I10) Overweight with body mass index (BMI) of 26 to 26.9 in adult (278.02,V85.22) (E66.3,Z68.26) Orders Hypertension, benign Start: Co Q-10 200 MG Oral Capsule; TAKE 1 CAPSULE Daily Overweight with body mass index (BMI) of 26 to 26.9 in adult Healthy Weight Tips; Status:Complete; Done: 01Sep2022 Some eating tips that can help you lose weight.; Status:Complete; Done: 01Sep2022 Patient Instructions Please bring all medicines, vitamins, and herbal supplements with you when you come to the office. Prescriptions will not be filled unless you are compliant with your follow up appointments or have a follow up appointment scheduled as per instruction of your physician. Refills should be requested at the time of your visit. Keep follow-up appt as scheduled Chief Complaint LB MUSE is being seen for hypertension. Patient is in the office for hypertension management. Recently amlodipine 5 mg daily was added to her medical regimen and it seemed to have helped bringing her blood pressure under control in combination with the other medical therapy she is on. This measure did not cause any side effects.. Present medical therapy therefore be left as it is and we will continue to follow the patient Current Meds Medication NameInstruction amLODIPine Besylate 5 MG Oral TabletTAKE 1 TABLET BY MOUTH EVERY DAY Atorvastatin Calcium 20 MG Oral TabletTAKE 1 TABLET AT BEDTIME glipiZIDE 10 MG Oral TabletTAKE 1 TABLET DAILY. Losartan Potassium 50 MG Oral TabletTAKE 2 TABLET Daily metFORMIN HCl - 1000 MG Oral TabletTAKE 1 TABLET DAILY WITH FOOD. Metoprolol Succinate ER 100 MG Oral Tablet Extended Release 24 HourTAKE 1 TABLET DAILY. Spironolactone 25 MG Oral TabletTAKE 1 TABLET DAILY. Vitamin D-3 25 MCG (1000 UT) Oral CapsuleTAKE 1 CAPSULE BY MOUTH ONCE DAILY Allergies Medication No Known Drug Allergies Recorded By: Maricel Rucker; 02/16/2021 2:00:38 PM NonMedication Aspartame, Nutrasweet, Equal Adverse Reaction; Shortness of breath;; Updated By: Rita Rodriguez; 03/30/2022 1:09:30 PM Review of Systems Constitutional: not feeling tired. Cardiovascular: no intermittent leg claudication and as noted in HPI. Respiratory: no cough and no shortness of breath. Gastrointestinal: no change in bowel habits and no blood in stools. Integumentary: no skin rashes. Neurological: no seizures and no frequent falls. All other systems have been reviewed and are negative for complaint. Vitals Vital Signs Recorded: 01Sep2022 10:01AMRecorded: 01Sep2022 09:57AM [id number], LUE, Xpoaegm062, RUE, Sitting Poyytncfk25, LUE, Yuniiif47, RUE, Sitting Heart Rate62, L Radial Height5 ft 3 in Rnholc808 lb 8 oz BMI Rqgyejhlyc91.66 kg/m2 BSA Calculated1.71 Tobacco Useb) No PHQ-2 #1. Over the last 2 weeks have you felt down, depressed or hopeless? (If yes, answer PHQ-9 below)No PHQ-2 #2. Over the last 2 weeks have you felt little interest or pleasure in doing things? (If yes, answer PHQ-9 below)No Falls Screening (Age 18+)a) No falls within the last year Signatures Electronically signed by : Álvaro Pruitt MD; Sep 05 2022 9:02PM EST (Author) Normal [employer] Tobacco Screening.on 023 Adult depression screening assessment No [facility] [employer] 250 DO Work Phone: Fall risk assessment a) No falls within the last year [facility] [employer] 250 DO Work Phone: Tobacco use status [facility] b) No [facility] [employer] 250 DO Work Phone: Office Visit (Cardiology)on 07-13-2022 Follow-up visit Diagnoses/Problems Assessed Hypertension, benign (401.1) (I10) Mixed hyperlipidemia (272.2) (E78.2) Cardiomyopathy (425.4) (I42.9) Nonischemic based on cardiac catheterization May 2022 Echocardiogram abnormal (793.2) (R93.1) Type 2 diabetes mellitus without complication, without long-term current use of insulin (250.00) (E11.9) Overweight with body mass index (BMI) of 27 to 27.9 in adult (278.02,V85.23) (E66.3,Z68.27) LBBB (left bundle branch block) (426.3) (I44.7) Orders Hypertension, benign Start: amLODIPine Besylate 5 MG Oral Tablet; TAKE 1 TABLET BY MOUTH EVERY DAY Overweight with body mass index (BMI) of 27 to 27.9 in adult Healthy Weight Tips; Status:Complete - Retrospective Authorization; Done: 13Jul2022 Some eating tips that can help you lose weight.; Status:Complete - Retrospective Authorization; Done: [id number] Patient Instructions Please bring all medicines, vitamins, and herbal supplements with you when you come to the office. Prescriptions will not be filled unless you are compliant with your follow up appointments or have a follow up appointment scheduled as per instruction of your physician. Refills should be requested at the time of your visit. BP check in 3 weeks Follow up in 6 months Chief Complaint S/P CATH 05-26-22. LB MUSE is being seen for a 6 week follow-up of. Patient is in the office for follow-up for the problems noted below. She underwent diagnostic cardiac catheterization by myself recently which revealed no coronary disease EF 40%. She is feeling well without any complaints she has no symptoms of heart failure at the present time but was found to be hypertensive in the office today. Her examination was only remarkable for overweight and hypertension. Assessment/recommendations : 1?nonischemic cardiomyopathy confirmed by cardiac catheterization May 2022. The patient will continue on maximal dose losartan and maximally tolerated beta-thomas therapy along with spironolactone. We will add amlodipine 5 mg daily for hypertension control. She will come back for follow-up on the blood pressure. Eventually I may switch patient to Entresto if necessary. 2?uncontrolled hypertension, amlodipine 5 mg daily is added to her medical regimen. 3?diabetes on medical therapy managed by PCP 4?chronic left bundle branch block which may be contributing factor for LV systolic dysfunction 5?dyslipidemia on statin therapy 6?previous history of brain aneurysm that was treated and resolved with no complications 7?overweight, encouraged patient to maintain adequate daily activities if she can, low-calorie diet was recommended Surgical History Problems History of Cardiac catheterization History of Colonoscopy complete for polypectomy Managed By: Ginger Forman MD History of Dilation and curettage History of Hernia repair History of Knee replacement left Current Meds Medication NameInstruction Atorvastatin Calcium 20 MG Oral TabletTAKE 1 TABLET AT BEDTIME glipiZIDE 10 MG Oral TabletTAKE 1 TABLET DAILY. Losartan Potassium 50 MG Oral TabletTAKE 2 TABLET Daily metFORMIN HCl - 1000 MG Oral TabletTAKE 1 TABLET DAILY WITH FOOD. Metoprolol Succinate ER 50 MG Oral Tablet Extended Release 24 HourTake 1 tablet daily Spironolactone 25 MG Oral TabletTAKE 1 TABLET DAILY. Vitamin D-3 25 MCG (1000 UT) Oral CapsuleTAKE 1 CAPSULE BY MOUTH ONCE DAILY Allergies Medication No Known Drug Allergies Recorded By: Maricel Rucker; 02/16/2021 2:00:38 PM NonMedication Aspartame, Nutrasweet, Equal Adverse Reaction; Shortness of breath;; Updated By: Rita Rodriguez; 03/30/2022 1:09:30 PM Social History Problems Caffeine use (V49.89) (Z78.9) 1 soda daily Never a smoker No alcohol use No illicit drug use Review of Systems Constitutional: not feeling tired. Cardiovascular: no intermittent leg claudication and as noted in HPI. Respiratory: no cough and no shortness of breath. Gastrointestinal: no change in bowel habits and no blood in stools. Integumentary: no skin rashes. Neurological: no seizures and no frequent falls. All other systems have been reviewed and are negative for complaint. Vitals Vital Signs Recorded: 13Jul2022 09:51AM Heart Rate60, L Radial [id number], LUE, Sitting Wsfzqgbbg89, LUE, Sitting Height5 ft 3 in Sskglq815 lb BMI Mqiyxmgbxn74.28 kg/m2 BSA Calculated1.73 Tobacco Useb) No Falls Screening (Age 18+)a) No falls within the last year Physical Exam Constitutional: alert and in no acute distress. Neck: neck is supple, symmetric, trachea midline, no masses and no thyromegaly . Pulmonary: no increased work of breathing or signs of respiratory distress and lungs clear to auscultation. Cardiovascular: carotid pulses 2+ bilaterally with no bruit , JVP was normal, no thrills , regular rhythm, normal S1 and S2, no murmurs , pedal pulses 2+ bilaterally and no edema . Abdomen: abdomen non-tender, no masses and no hepatomegaly . Skin: sk (more content not included)... Normal [employer] Tobacco Screening.on 023 Fall risk assessment a) No falls within the last year -[facility] [employer] 250 DO Work Phone: Tobacco use status [facility] b) No [facility] 250 DO Work Phone: PROF CHEM 8 (BAS METB)on Anion gap [Moles/Vol] 11.3 mmol/L Normal [facility] Comment on above: Performed By: #### B MP #### [facility] [address] [address] [address] Roz Sanchez Calcium [Mass/Vol] 9.4 mg/dL Normal 8.5-10.1 [facility] Comment on above: Performed By: #### B MP #### [facility] [address] [address] [address] oRz Sanchez Chloride [Moles/Vol] 106 mmol/L Normal 98-107 [facility] Comment on above: Performed By: #### B MP #### [facility] [address] [address] [address] Roz Sanchez CO2 [Moles/Vol] 30.0 mmol/L Normal 21.0-32.0 [facility] Comment on above: Performed By: #### B MP #### [facility] [address] [place] [address] Dr. Roz Sanchez Creatinine [Mass/Vol] 0.62 mg/dL Normal 0.55-1.02 [facility] Comment on above: Performed By: #### B MP #### [facility] [address] [place] [address] Dr. Roz Sanchez EGFR-AF IRAQI >60 Normal >=60 [facility] Comment on above: Performed By: #### B MP #### [facility] [address] [place] [address] Dr. Roz Sanchez EGFR-NON AF IRAQI >60 Normal >=60 [facility] Comment on above: Performed By: #### B MP #### [facility] [address] [place] [address] Dr. Roz Sanchez Glucose [Mass/Vol] 186 mg/dL Critically high 74-106 [facility] Comment on above: Performed By: #### B MP #### [facility] [address] [address] [address] Roz Sanchez Potassium [Moles/Vol] 4.3 mmol/L Normal 3.5-5.1 [facility] Comment on above: Performed By: #### B MP #### [facility] [address] [address] [address] Roz Sanchez Sodium [Moles/Vol] 143 mmol/L Normal 136-145 [facility] Comment on above: Performed By: #### B MP #### [facility] [address] [address] [address] Roz Sanchez Urea nitrogen [Mass/Vol] 15.0 mg/dL Normal 7.0-18.0 [facility] Comment on above: Performed By: #### B MP #### [facility] [address] [address] [address] Roz Sanchez Urea nitrogen/Creatinine [Mass ratio] 24.2 mg/mg Normal [facility] Comment on above: Performed By: #### B MP #### [facility] [address] [address] [address] Roz Sanchez Activated partial thrombopla stin time (aPTT) in platelet poor plasma by coagulation aOrdered By: Álvaro Pruitt on 05-24-2022 aPTT Coag (PPP) [Time] 30.3 s 25.1-36.5 [facility] Basophils Auto (Bld) [#/Vol] Ordered By: Álvaro Priutt on 05-24-2022 Basophils (Bld) [#/Vol] 0.1 10*3/uL 0.0-0.2 [facility] Basophils/100 WBC Auto (Bld) Ordered By: Álvaro Pruitt on 05-24-2022 Basophils/100 WBC (Bld) 1.2 % . [facility] Blood Urea Nitrogenon 2022 Urea nitrogen [Mass/Vol] 17 mg/dL Normal 7-25 [facility] Comment on above: Performed By: #### L YTES, CBC, CREAT, LIPID, BUN, PP #### [facility] [address] Carbon dioxide, total [Moles /volume] in Serum or PlasmaOrdered By: Álvaro Pruitt on 05-24-2022 CO2 [Moles/Vol] 27.6 mmol/L 21.0-31.0 [facility] Chloride [Moles/volume] in S callie or PlasmaOrdered By: Álvaro Pruitt on 05-24-2022 Chloride [Moles/Vol] 107 mmol/L 98-107 [facility] Cholesterol [Mass/volume] in Serum or PlasmaOrdered By: Álvaro Pruitt on 05-24-2022 Cholesterol [Mass/Vol] 115 mg/dL 140-200 [facility] Comment on above: Chol less than 200 m g/dl low riskChol 201-239 mg/dl borderline riskChol 240 mg/dl and greater high risk Cholesterol in LDL Calc [Mas s/Vol]Ordered By: Álvaro Pruitt on 05-24-2022 Cholesterol in LDL [Mass/Vol] 58 mg/dL 0-100 [facility] Comment on above: LDL ATP III CLASSIFI CATIONLDL less than 100 mg/dL OptimalLDL 100-129 mg/dL Near or above optimalLDL 130-159 mg/dL Borderline highLDL 160-189 mg/dL HighLDL greater than 189 mg/dL Very high Cholesterol in VLDL Calc [Ma ss/Vol]Ordered By: Álvaro Pruitt on 05-24-2022 Cholesterol in VLDL [Mass/Vol] 18 mg/dL [facility] Coagulation Profileon 2022 aPTT Coag (Bld) [Time] 30.3 s Normal 25.1-36.5 [facility] Comment on above: Result Comment: PERF ORMED BY: [place] [address] PATHOLOGIST RECORDS MANAGER LUCY GAN M.D. Performed By: #### L YTES, CBC, CREAT, LIPID, BUN, PP #### [facility] [address] INR Coag (PPP) [Relative time] 1.1 {INR} Normal [facility] Comment on above: Result Comment: INR Therapeutic Range A) Pre- and Peroperative OAT started two weeks before surgery. NOT HIP SURGERY: 1.5 - 2.5 HIP SURGERY: 2 - 3 B) Primary and secondary prevention of venous THROMBOSIS: 2 - 3 C) Active venous thrombosis, pulmonary embolism and prevention of recurrent venous thrombosis: 2 - 3 D) Prevention of arterial thromboembolism including patients with mechanical heart valves: 3 - 4.5 Performed By: #### L YTES, CBC, CREAT, LIPID, BUN, PP #### [address] PT Coag (PPP) [Time] 12.3 s Normal 9.0-12.9 [facility] Comment on above: Performed By: #### L YTES, CBC, CREAT, LIPID, BUN, PP #### [address] Complete Blood Count Auto Di ffon 05-24-2022 Basophils (Bld) [#/Vol] 0.1 10*3/uL Normal 0.0-0.2 [facility] Comment on above: Result Comment: PERF ORMED BY: [place] [address] PATHOLOGIST RECORDS MANAGER LUCY GAN M.D. Performed By: #### L YTES, CBC, CREAT, LIPID, BUN, PP #### [address] Basophils/100 WBC (Bld) 1.2 % Normal . [facility] Comment on above: Performed By: #### L YTES, CBC, CREAT, LIPID, BUN, PP #### [place] [address] [place] Eosinophils (Bld) [#/Vol] 0.2 10*3/uL Normal 0.0-0.45 [facility] Comment on above: Performed By: #### L YTES, CBC, CREAT, LIPID, BUN, PP #### [place] [address] [place] Eosinophils/100 WBC (Bld) 2.4 % Normal . [facility] Comment on above: Performed By: #### L YTES, CBC, CREAT, LIPID, BUN, PP #### [address] Erythrocyte distribution width (RBC) [Ratio] 14.3 % Normal 11.9-15.3 [facility] Comment on above: Performed By: #### L YTES, CBC, CREAT, LIPID, BUN, PP #### [address] Hematocrit (Bld) [Volume fraction] 36.3 % Normal 34.0-46.4 [facility] Comment on above: Performed By: #### L YTES, CBC, CREAT, LIPID, BUN, PP #### [address] Hemoglobin (Bld) [Mass/Vol] 11.9 g/dL Normal 11.8-15.4 [facility] Comment on above: Performed By: #### L YTES, CBC, CREAT, LIPID, BUN, PP #### [address] Lymphocytes (Bld) [#/Vol] 2.0 10*3/uL Normal 1.00-4.8 [facility] Comment on above: Performed By: #### L YTES, CBC, CREAT, LIPID, BUN, PP #### [address] Lymphocytes/100 WBC (Bld) 23.0 % Normal . [facility] Comment on above: Performed By: #### L YTES, CBC, CREAT, LIPID, BUN, PP #### [address] MCH (RBC) [Entitic mass] 27.7 pg Normal 24.7-34.3 [facility] Comment on above: Performed By: #### L YTES, CBC, CREAT, LIPID, BUN, PP #### [address] MCV (RBC) [Entitic vol] 84.7 fL Normal 80-100 [facility] Comment on above: Performed By: #### L YTES, CBC, CREAT, LIPID, BUN, PP #### [address] Mean Corpuscular HGB Conc 32.7 g/dL Normal 32.0-35.0 [facility] Comment on above: Performed By: #### L YTES, CBC, CREAT, LIPID, BUN, PP #### [address] Monocytes (Bld) [#/Vol] 0.6 10*3/uL Normal 0.0-0.8 [facility] Comment on above: Performed By: #### L YTES, CBC, CREAT, LIPID, BUN, PP #### [address] Monocytes/100 WBC (Bld) 7.4 % Normal . [facility] Comment on above: Performed By: #### L YTES, CBC, CREAT, LIPID, BUN, PP #### [address] Neutrophils (Bld) [#/Vol] 5.6 10*3/uL Normal 1.8-7.7 [facility] Comment on above: Performed By: #### L YTES, CBC, CREAT, LIPID, BUN, PP #### [address] Neutrophils/100 WBC (Bld) 66.0 % Normal . [facility] Comment on above: Performed By: #### L YTES, CBC, CREAT, LIPID, BUN, PP #### [address] NRBC% 0.1 /100{WBC} Normal 0-0.5 [facility] Comment on above: Performed By: #### L YTES, CBC, CREAT, LIPID, BUN, PP #### [address] Platelet mean volume (Bld) [Entitic vol] 8.5 fL Normal 6.3-10.7 [facility] Comment on above: Performed By: #### L YTES, CBC, CREAT, LIPID, BUN, PP #### [facility] [address] Platelets (Bld) [#/Vol] 230 10*3/uL Normal 150-450 [facility] Comment on above: Performed By: #### L YTES, CBC, CREAT, LIPID, BUN, PP #### [address] RBC (Bld) [#/Vol] 4.28 10*6/uL Normal 3.60-5.00 [facility] Comment on above: Performed By: #### L YTES, CBC, CREAT, LIPID, BUN, PP #### [address] WBC (Bld) [#/Vol] 8.5 10*3/uL Normal 3.8-11.6 [facility] Comment on above: Performed By: #### L YTES, CBC, CREAT, LIPID, BUN, PP #### [address] Creatinineon 05-24-2022 Creatinine [Mass/Vol] 0.79 mg/dL Normal 0.60-1.20 [facility] Comment on above: Performed By: #### L YTES, CBC, CREAT, LIPID, BUN, PP #### [address] GFR/1.73 sq M.predicted MDRD (S/P/Bld) [Vol rate/Area] mL/min/{1.73_m2} Normal [facility] Comment on above: Performed By: #### L YTES, CBC, CREAT, LIPID, BUN, PP #### [address] Creatinine [Mass/volume] in Serum or PlasmaOrdered By: Álvaro Pruitt on 05-24-2022 Creatinine [Mass/Vol] 0.79 mg/dL 0.60-1.20 [facility] ECG 12 lead ECGon 05-24-2022 ECG 12 lead ECG [facility] [place] [address] [place] [address] Electrocardiograph Report Signed Patient: Lb Muse MR#: [id number] : 1945 Acct:[id number] Age/Sex: 77 / F ADM Date: 05/24/22 Loc: Room: Type: [facility] Attending Dr: Álvaro Pruitt MD Ordering Provider: Álvaro Pruitt MD, [facility] Date of Service: 05/24/22 ECG/ECG 12 lead ECG: pre op Copies to: Test Reason : Blood Pressure : / mmHG Vent. Rate : 074 BPM Atrial Rate : 074 BPM P-R Int : 162 ms QRS Dur : 138 ms QT Int : 420 ms P-R-T Axes : 017 -37 059 degrees QTc Int : 466 ms Normal sinus rhythm Left axis deviation Left bundle branch block Abnormal ECG When compared with ECG of 07-JAN-2021 09:50, QRS axis shifted left T wave inversion less evident in Inferior leads T wave inversion less evident in Lateral leads Confirmed by JAGDISH ELLINGTON DO ([id number]) on 05/24/2022 1:20:17 PM Referred By: DR PRUITT Electronically Signed By:JAGDISH ELLINGTON DO Transcribed By: MUS Signed By Jagdish Ellington DO 05/24 1320 Normal [facility] Electrolyteson 05-24-2022 Anion gap [Moles/Vol] 10.7 mmol/L Normal 6.0-15.0 [facility] Comment on above: Performed By: #### L YTES, CBC, CREAT, LIPID, BUN, PP #### [facility] [address] [place] [address] [place] Chloride [Moles/Vol] 107 mmol/L Normal 98-107 [facility] Comment on above: Performed By: #### L YTES, CBC, CREAT, LIPID, BUN, PP #### [facility] [address] [id number] [place] CO2 [Moles/Vol] 27.6 mmol/L Normal 21.0-31.0 [facility] Comment on above: Performed By: #### L YTES, CBC, CREAT, LIPID, BUN, PP #### [facility] [address] Potassium [Moles/Vol] 4.3 mmol/L Normal 3.5-5.1 [facility] Comment on above: Performed By: #### L YTES, CBC, CREAT, LIPID, BUN, PP #### [facility] [address] Sodium [Moles/Vol] 141 mmol/L Normal 136-145 [facility] Comment on above: Performed By: #### L YTES, CBC, CREAT, LIPID, BUN, PP #### [facility] [address] Eosinophils Auto (Bld) [#/Vo l]Ordered By: Álvaro Pruitt on 05-24-2022 Eosinophils (Bld) [#/Vol] 0.2 10*3/uL 0.0-0.45 [facility] Eosinophils/100 WBC Auto (Bl d)Ordered By: Álvaro Pruitt on 05-24-2022 Eosinophils/100 WBC (Bld) 2.4 % . [facility] Erythrocyte distribution wid th Auto (RBC) [Ratio]Ordered By: Álvaro Pruitt on 05-24-2022 Erythrocyte distribution width (RBC) [Ratio] 14.3 % 11.9-15.3 [facility] Hematocrit Auto (Bld) [Volum e fraction]Ordered By: Álvaro Pruitt on 05-24-2022 Hematocrit (Bld) [Volume fraction] 36.3 % 34.0-46.4 [facility] Hemoglobin [Mass/volume] in BloodOrdered By: Álvaro Pruitt on 05-24-2022 Hemoglobin (Bld) [Mass/Vol] 11.9 g/dL 11.8-15.4 [facility] - Chemistry and C hemistry - challengeOrdered By: Álvaro Pruitt on 05-24-2022 GFR/1.73 sq M.predicted MDRD (S/P/Bld) [Vol rate/Area] mL/min/{1.73_m2} [facility] - CoagulationOrde red By: Álvaro Pruitt on 05-24-2022 PT Coag (PPP) [Time] 12.3 s 9.0-12.9 [facility] Leukocytes [#/volume] correc robby for nucleated erythrocytes in Blood by Automated counOrdered By: Álvaro Pruitt on 05-24-2022 WBC corrected for nucl RBC Auto (Bld) [#/Vol] 8.5 10*3/uL 3.8-11.6 [facility] Lipid Panelon 05-24-2022 Cholesterol [Mass/Vol] 115 mg/dL Low 140-200 [facility] Comment on above: Result Comment: Chol less than 200 mg/dl low risk Chol 201-239 mg/dl borderline risk Chol 240 mg/dl and greater high risk Performed By: #### L YTES, CBC, CREAT, LIPID, BUN, PP #### [facility] [address] Cholesterol in HDL [Mass/Vol] 38 mg/dL Normal 35-85 [facility] Comment on above: Result Comment: HDL CHOL ATP-III CLASSIFICATION Cardiovascular Risk HDL > or equal to 60 mg/dL LOW HDL < 40 mg/dL HIGH Performed By: #### L YTES, CBC, CREAT, LIPID, BUN, PP #### [facility] [address] Cholesterol.total/Chol esterol in HDL [Mass ratio] 3.0 {ratio} Normal <5.0 [facility] Comment on above: Result Comment: PERF ORMED BY: [facility] [address] [place] [address] PATHOLOGIST RECORDS MANAGER LUCY GAN M.D. Performed By: #### L YTES, CBC, CREAT, LIPID, BUN, PP #### [facility] [address] LDL Cholesterol,Calculated 58 mg/dL Normal 0-100 [facility] Comment on above: Result Comment: LDL ATP III CLASSIFICATION LDL less than 100 mg/dL Optimal LDL 100-129 mg/dL Near or above optimal LDL 130-159 mg/dL Borderline high LDL 160-189 mg/dL High LDL greater than 189 mg/dL Very high Performed By: #### L YTES, CBC, CREAT, LIPID, BUN, PP #### [facility] [address] Triglyceride w/Reflex 94 mg/dL Normal 0-149 [facility] Comment on above: Result Comment: TRIG ATP III CLASSIFICATION TRIG less than 150 mg/dL Normal TRIG 150-199 mg/dL Borderline high TRIG 200-500 mg/dL High TRIG greater than 500 mg/dL Very high Standard traceable to the Center for Disease Conrtrol and Prevention (CDC) test method. Performed By: #### L YTES, CBC, CREAT, LIPID, BUN, PP #### [facility] [address] VLDL CHOLESTEROL 18 mg/dL Normal [facility] Comment on above: Performed By: #### L YTES, CBC, CREAT, LIPID, BUN, PP #### [facility] [address] Lymphocytes Auto (Bld) [#/Vo l]Ordered By: Álvaro Pruitt on 05-24-2022 Lymphocytes (Bld) [#/Vol] 2.0 10*3/uL 1.00-4.8 [facility] Lymphocytes/100 WBC Auto (Bl d)Ordered By: Álvaro Pruitt on 05-24-2022 Lymphocytes/100 WBC (Bld) 23.0 % . [facility] MCH Auto (RBC) [Entitic mass ]Ordered By: Álvaro Pruitt on 05-24-2022 MCH (RBC) [Entitic mass] 27.7 pg 24.7-34.3 [facility] MCHC Auto (RBC) [Mass/Vol]Or dered By: Álvaro Pruitt on 05-24-2022 MCHC (RBC) [Mass/Vol] 32.7 g/dL 32.0-35.0 [facility] MCV Auto (RBC) [Entitic vol] Ordered By: Álvaro Pruitt on 05-24-2022 MCV (RBC) [Entitic vol] 84.7 fL 80-100 [facility] Monocytes Auto (Bld) [#/Vol] Ordered By: Álvaro Pruitt on 05-24-2022 Monocytes (Bld) [#/Vol] 0.6 10*3/uL 0.0-0.8 [facility] Monocytes/100 WBC Auto (Bld) Ordered By: Álvaro Pruitt on 05-24-2022 Monocytes/100 WBC (Bld) 7.4 % . [facility] Neutrophils Auto (Bld) [#/Vo l]Ordered By: Álvaro Pruitt on 05-24-2022 Neutrophils (Bld) [#/Vol] 5.6 10*3/uL 1.8-7.7 [facility] Neutrophils/100 WBC Auto (Bl d)Ordered By: Álvaro Pruitt on 05-24-2022 Neutrophils/100 WBC (Bld) 66.0 % . [facility] No Panel InformationOrdered By: Álvaro Pruitt on 05-24-2022 Pharmacy Creatinine Clearance (Chem N/A [facility] Nucleated erythrocytes [Pres ence] in Blood by Automated countOrdered By: Álvaro Pruitt on 05-24-2022 Nucleated RBC Auto Ql (Bld) 0.1 /100{WBC} 0-0.5 [facility] Platelet mean volume Auto (B ld) [Entitic vol]Ordered By: Álvaro Pruitt on 05-24-2022 Platelet mean volume (Bld) [Entitic vol] 8.5 fL 6.3-10.7 [facility] Platelet poor plasma interna tional normalized ratio (INR) by coagulation assay (relatOrdered By: Álvaro Pruitt on 05-24-2022 INR Coag (PPP) [Relative time] 1.1 {INR} [facility] Comment on above: INR Therapeutic Rang e A) Pre- and Peroperative OAT started two weeks before surgery. NOT HIP SURGERY: 1.5 - 2.5 HIP SURGERY: 2 - 3B) Primary and secondary prevention of venous THROMBOSIS: 2 - 3C) Active venous thrombosis, pulmonary embolismand prevention of recurrent venous thrombosis: 2 - 3D) Prevention of arterial thromboembolismincluding patients with mechanical heart valves: 3 - 4.5 Platelets Auto (Bld) [#/Vol] Ordered By: Álvaro Pruitt on 05-24-2022 Platelets (Bld) [#/Vol] 230 10*3/uL 150-450 [facility] Potassium [Moles/volume] in Serum or PlasmaOrdered By: Álvaro Pruitt on 05-24-2022 Potassium [Moles/Vol] 4.3 mmol/L 3.5-5.1 [facility] RBC Auto (Bld) [#/Vol]Ordere d By: Álvaro Pruitt on 05-24-2022 RBC (Bld) [#/Vol] 4.28 10*6/uL 3.60-5.00 [facility] Serum or plasma anion gap de terminationOrdered By: Álvaro Pruitt on 05-24-2022 Anion gap [Moles/Vol] 10.7 mmol/L 6.0-15.0 [facility] Serum or plasma high density lipoprotein (HDL) cholesterol measurementOrdered By: Álvaro Pruitt on 05-24-2022 Cholesterol in HDL [Mass/Vol] 38 mg/dL 35-85 [facility] Comment on above: HDL CHOL ATP-III CLA SSIFICATION Cardiovascular RiskHDL > or equal to 60 mg/dL LOWHDL < 40 mg/dL HIGH Serum or plasma total choles terol/high density lipoprotein (HDL) cholesterol mass ratOrdered By: Álvaro Pruitt on 05-24-2022 Cholesterol.total/Chol esterol in HDL [Mass ratio] 3.0 {ratio} <5.0 [facility] Sodium [Moles/volume] in Ser um or PlasmaOrdered By: Álvaro Pruitt on 05-24-2022 Sodium [Moles/Vol] 141 mmol/L 136-145 [facility] Triglyceride [Mass/volume] i n Serum or PlasmaOrdered By: Álvaro Pruitt on 05-24-2022 Triglyceride [Mass/Vol] 94 mg/dL 0-149 [facility] Comment on above: TRIG ATP III CLASSIF ICATIONTRIG less than 150 mg/dL NormalTRIG 150-199 mg/dL Borderline highTRIG 200-500 mg/dL High TRIG greater than 500 mg/dL Very highStandard traceable to the Center for Disease Conrtrol and Prevention (CDC) test method. Urea nitrogen [Mass/volume] in Serum or PlasmaOrdered By: Álvaro Pruitt on 05-24-2022 Urea nitrogen [Mass/Vol] 17 mg/dL 7- [facility] WBC Auto (Bld) [#/Vol]Ordere d By: Álvaro Pruitt on 05-24-2022 WBC (Bld) [#/Vol] 8.5 10*3/uL 3.8-11.6 [facility] Office Visit (Cardiology)on 05-18-2022 Follow-up visit Diagnoses/Problems Assessed Cardiomyopathy (425.4) (I42.9) Hypertension, benign (401.1) (I10) Mixed hyperlipidemia (272.2) (E78.2) Type 2 diabetes mellitus without complication, without long-term current use of insulin (250.00) (E11.9) Overweight with body mass index (BMI) of 27 to 27.9 in adult (278.02,V85.23) (E66.3,Z68.27) Echocardiogram abnormal (793.2) (R93.1) LBBB (left bundle branch block) (426.3) (I44.7) Orders Cardiomyopathy, Echocardiogram abnormal, Hypertension, benign, LBBB (left bundle branch block) Start: Losartan Potassium 50 MG Oral Tablet; TAKE 2 TABLET Daily Cardiac Catheterization Lab Procedures; Status:Active - Retrospective Authorization; Requested for:18May2022; Basic Metabolic Panel; Status:Active - Retrospective Authorization; Requested for:[id number]; Start: Spironolactone 25 MG Oral Tablet; TAKE 1 TABLET DAILY Overweight with body mass index (BMI) of 27 to 27.9 in adult Healthy Weight Tips; Status:Complete - Retrospective Authorization; Done: 18May2022 Some eating tips that can help you lose weight.; Status:Complete - Retrospective Authorization; Done: 18May2022 Patient Instructions Please bring all medicines, vitamins, and herbal supplements with you when you come to the office. Prescriptions will not be filled unless you are compliant with your follow up appointments or have a follow up appointment scheduled as per instruction of your physician. Refills should be requested at the time of your visit. echo results discussed Follow up in 6 weeks Heart cath procedure discussed in detail. Medications/ allergies reviewed. Patient instructed to hold metformin am of procedure and additional 72 hours after. Order faxed to [facility]. Chief Complaint LB MUSE is being seen for ECHO RESULTS. 77-year-old white female came with her for discussing cardiac status with me. She has previously followed Dr. Landa and recently saw our nurse practitioner Kenan Huynh who requested that I see the patient. The patient apparently was diagnosed last year with left ventricular systolic dysfunction ejection fraction in the mid 40s. She was placed on medical therapy and followed but her EF continued to drift downwards. She had noninvasive investigations which revealed no ischemia or myocardial infarction. The patient has longstanding diabetes and previously had brain aneurysm that was treated and resolved. She has no history of cardiac arrhythmias no family history of CAD, no smoking history, she has hypertension on medical therapy but uncontrolled. She has no valvular heart disease and no PAD. She has no sleep apnea. She is able to function at class II heart failure. She has no volume overload. No cardiac arrhythmias. Examination was unremarkable except for slight overweight and mild hypertension. Assessment/recommendations : 1?left ventricular systolic dysfunction and functional class II NYHA with unknown etiology. Noninvasive investigations in the past have demonstrated no ischemia or myocardial infarction with no valvular heart disease. The patient's ejection fraction continued to drift downward despite medical therapy. Advised patient to consider invasive cardiac evaluation with right and left cardiac catheterization to have all the issues cleared in terms of etiology and long-term therapy. The benefits and potential complications were discussed with the patient and her . She is agreeable to proceed. 2?uncontrolled hypertension, will increase losartan up to 50 mg twice daily and add Aldactone 25 mg daily. 3?diabetes on medical therapy managed by PCP 4?chronic left bundle branch block which may be contributing factor for LV systolic dysfunction 5?dyslipidemia on statin therapy 6?previous history of brain aneurysm that was treated and resolved with no complications 7?overweight, encouraged patient to maintain adequate daily activities if she can, low-calorie diet was recommended Surgical History Problems History of Colonoscopy complete for polypectomy Managed By: Ginger Forman MD History of Dilation and curettage History of Hernia repair History of Knee replacement left Current Meds Medication NameInstruction Aspirin EC 81 MG Oral Tablet Delayed ReleaseTAKE 1 TABLET DAILY. Atorvastatin Calcium 20 MG Oral TabletTAKE 1 TABLET AT BEDTIME glipiZIDE 10 MG Oral TabletTAKE 1 TABLET DAILY. Losartan Potassium 50 MG Oral TabletTAKE 1 TABLET DAILY. metFORMIN HCl - 1000 MG Oral TabletTAKE 1 TABLET DAILY WITH FOOD. Metoprolol Succinate ER 50 MG Oral Tablet Extended Release 24 HourTake 1 tablet daily Vitamin D-3 25 MCG (1000 UT) Oral CapsuleTAKE 1 CAPSULE BY MOUTH ONCE DAILY Allergies Medication No Known Drug Allergies Recorded By: Maricel Rucker; 02/16/2021 2:00:38 PM NonMedication Aspartame, Nutrasweet, Equal Adverse Reaction; Shortness of breath;; Updated By: Rita Rodriguez; 03/30/2022 1:09:30 PM Social History Problems Caffeine use (V49.89) (Z78.9) 1 soda daily Never (more content not included)... Normal [employer] Tobacco Screening.on 023 Fall risk assessment b) One or more fall s in the last year [facility] [employer] DO Work Phone: Tobacco use status CPHS b) No [facility] [employer] DO Work Phone: Tobacco Screening. Yes [facility] [employer] DO Work Phone: Echocardiogramon 05-11-[address], [address] [place] [address] TRANSTHORACIC ECHOCARDIOGRAM REPORT Patient Name: LB MUSE Reading Physician: [id number] Omar Sampson MD Study Date: 05/11/2022 Referring Physician: KENAN HUYNH MRN/PID: [id number] PCP: [id number] Danielle Nowak MD Accession/Order#: [id number] Department Location: [facility] Date of : 1945 Fellow: Gender: F Nurse: Admit Date: Cloth Neutralizer: Melly Gaviria RDCS, T Height: 160.02 cm CC Report to: Weight: 71.22 kg Study Type: Echocardiogram BSA: 1.74 m2 Blood Pressure: 138 /70 mmHg Diagnosis/ICD: I42.9-Cardiomyopathy, unspecified; R93.1-Abnormal findings on diagnostic imaging of heart and coronary circulation; I44.7-Left bundle branch block, unspecified Indication: Diabetes, HTN, Hyperlipidemia, Overweight Procedure/CPT: Echo Complete w Full [id number] Study Detail: The following Echo studies were performed: 2D, M-Mode, Doppler and color flow. PHYSICIAN INTERPRETATION: Left Ventricle: Left ventricular systolic function is severely decreased, with an estimated ejection fraction of 25-30%. There are no regional wall motion abnormalities. The left ventricular cavity size is normal. Spectral Doppler shows an impaired relaxation pattern of left ventricular diastolic filling. Mild LVH. Left Atrium: The left atrium is mildly dilated. Mildly dilated left atrium. Right Ventricle: The right ventricle is normal in size. There is normal right ventricular global systolic function. Right Atrium: The right atrium is normal in size. Aortic Valve: The aortic valve appears structurally normal. There is no evidence of aortic valve regurgitation. The peak instantaneous gradient of the aortic valve is 5.7 mmHg. The mean gradient of the aortic valve is 3.0 mmHg. Mitral Valve: The mitral valve is normal in structure. There is mild mitral valve regurgitation. Tricuspid Valve: The tricuspid valve is structurally normal. No evidence of tricuspid regurgitation. Pulmonic Valve: The pulmonic valve is structurally normal. There is no indication of pulmonic valve regurgitation. Pericardium: There is no pericardial effusion noted. Aorta: The aortic root is normal. CONCLUSIONS: 1. Left ventricular systolic function is severely decreased with a 25-30% estimated ejection fraction. 2. Mild LVH. 3. Spectral Doppler shows an impaired relaxation pattern of left ventricular diastolic filling. 4. Mildly dilated left atrium. 5. Mild mitral valve regurgitation. 6. When compared to previous study LV systolic function has worsened. QUANTITATIVE DATA SUMMARY: 2D MEASUREMENTS: Normal Ranges: Ao Root d: 2.90 cm (2.0-3.7cm) LAs: 4.10 cm (2.7-4.0cm) RVIDd: 2.60 cm (0.9-3.6cm) IVSd: 1.60 cm (0.6-1.1cm) LVPWd: 1.10 cm (0.6-1.1cm) LVIDd: 4.60 cm (3.9-5.9cm) LVIDs: 4.00 cm LV Mass Index: 139.4 g/m2 LV % FS 13.0 % LV SYSTOLIC FUNCTION BY 2D PLANIMETRY (MOD): Normal Ranges: EF-A4C View: 34.4 % (>=55%) LV DIASTOLIC FUNCTION: Normal Ranges: MV Peak E: 0.45 m/s (0.7-1.2 m/s) MV Peak A: 0.74 m/s (0.42-0.7 m/s) E/A Ratio: 0.61 (1.0-2.2) MV lateral e' 0.03 m/s MV medial e' 0.04 m/s E/e' Ratio: 14.40 (<8.0) MITRAL VALVE: Normal Ranges: MV Vmax: 1.24 m/s (<=1.3m/s) MV peak P.2 mmHg (<5mmHg) MV mean P.0 mmHg (<48mmHg) MITRAL INSUFFICIENCY: Normal Ranges: MR Vmax: 255.00 cm/s AORTIC VALVE: Normal Ranges: AoV Vmax: 1.19 m/s (<=1.7m/s) AoV Peak P.7 mmHg (<20mmHg) AoV Mean P.0 mmHg (1.7-11.5mmHg) LVOT Max Luis: 0.84 m/s (<=1.1m/s) AoV VTI: 26.30 cm (18-25cm) LVOT VTI: 18.90 cm LVOT Diameter: 2.50 cm (1.8-2.4cm) AoV Area, VTI: 3.53 cm2 (2.5-5.5cm2) AoV Area,Vmax: 3.44 cm2 (2.5-4.5cm2) AoV Dimensionless Index: 0.72 PULMONIC VALVE: Normal Ranges: PV Max Luis: 0.8 m/s (0.6-0.9m/s) PV Max P.6 mmHg [id number] Omar Sampson MD Electronically signed on 05/11/2022 at 5:50:34 PM Final Normal [facility] Office Visit (Cardiology)on 03-30-2022 Follow-up visit Diagnoses/Problems Assessed Echocardiogram abnormal (793.2) (R93.1) Dec 2020 Echo: LVEF 40% Severe inferolateral hypokinesis Mar 2021 MPI EF 26% LBBB (left bundle branch block) (426.3) (I44.7) Identified Dec 2020 MPI no ischemia EF 40% by echo Normal nuclear stress test (V72.85) March 2021 MPI no ischemia LVEF 26% Current daily activity 4 METS without concerning symptoms Hypertension, benign (401.1) (I10) Optimal Mixed hyperlipidemia (272.2) (E78.2) Low intensity statin managed by PCP Type 2 diabetes mellitus without complication, without long-term current use of insulin (250.00) (E11.9) On ARB/statin Overweight with body mass index (BMI) of 27 to 27.9 in adult (278.02,V85.23) (E66.3,Z68.27) Reviewed the merits of healthy lifestyle choices on overall cardiovascular health. Cardiomyopathy (425.4) (I42.9) Presumed NICM HF borderline EF 40% Dec 2020 echo (26% Mar 2021 MPI) FC I Stage C GDMT: toprol AND losartan LBBB Orders Cardiomyopathy, Echocardiogram abnormal, LBBB (left bundle branch block) Echocardiogram; Status:Hold For - Scheduling; Requested for:30Mar2022; Overweight with body mass index (BMI) of 27 to 27.9 in adult Healthy Weight Tips; Status:Complete; Done: 30Mar2022 Patient Instructions Please bring all medicines, vitamins, and herbal supplements with you when you come to the office. Prescriptions will not be filled unless you are compliant with your follow up appointments or have a follow up appointment scheduled as per instruction of your physician. Refills should be requested at the time of your visit. PLAN: Through informed decision making process incorporating patients unique circumstances, the following treatment plan will be initiated: 1. Prescription drug management of cardiovascular medication for efficacy, adherence to treatment, side effect assessment and polypharmacy. Current treatment clinically warranted and to continue without modifications. 2. Echocardiogram f/u LVEF 3. Return for follow-up; in the interim, contact the office if new symptoms arise. Dr Coe in 9 months Chief Complaint 9 month routine f/u: 'doing great' LB MUSE is being seen for a 9 month follow-up of cardiomyopathy and LBBB. Patient presents to the office ambulatory with steady gait. Last evaluated in clinic Dr. Landa June 2021. She was originally evaluated by Dr. Landa in December 2020 due to initial diagnosis left bundle branch block and cardiomyopathy with LVEF 40% identified at preop testing. At that time she was initiated on Toprol and losartan. She follows routinely with her PCP has also seen orthopedics since last office visit due to left shoulder injury but no surgical repair necessary. She otherwise denies any hospitalizations or significant changes to interval medical history. She presents to the office where she remains an extremely pleasant 77-year-old female who is aerobically active on a daily basis. She is able to housework, she mops and vacuums her floors. She does not have steps at home. She denies any exertional complaints. There have been no change in exercise capacity or functional tolerance. There is no evidence orthopnea, PND, no dizziness or lightheadedness. No edema. December 2020 echo showed LVEF 40%. Follow-up perfusion study no ischemia with LVEF 26%. She remains functional class I with without evidence of decompensation on Toprol and losartan. Discussed reevaluation of LVEF to assist with initiation of GDMT or EP stratification if warranted. She has now been on treatment greater than 16 months. Is in agreement to proceed. Risk profile: Hypertension: She follows her blood pressure at home and it is always good . She reports having whitecoat syndrome . Hyperlipidemia: Managed by PCP Diabetes: On ARB/statin reports most recent hemoglobin A1c 6 something Non-smoker History of Present Illness The patient states she has been generally doing well since the last visit. Comorbid Illnesses: diabetes mellitus, hypertension and hyperlipidemia. Symptoms: denies chest pain at rest, denies exertional chest pain, denies dyspnea, denies fatigue, denies exercise intolerance, denies palpitations, denies edema, denies orthopnea, denies dizziness and denies orthostatic dizziness. Associated symptoms: no syncope. Her symptoms do not limit her activities. Disease Monitoring: The patient has had a stable weight. Medications: the patient is adherent with her medication regimen. She denies medication side effects. Surgical History Problems History of Colonoscopy complete for polypectomy Managed By: Ginger Forman MD History of Dilation and curettage History of Hernia repair History of Knee replacement left Current Meds Medication NameInstruction Aspirin EC 81 MG Oral Tablet Delayed ReleaseTAKE 1 TABLET DAILY. Atorvastatin Calcium 20 MG Oral TabletTAKE 1 TABLET AT BEDTIME glipiZIDE 10 MG Oral TabletTAKE 1 TABLET DAILY. Losartan Potassium 50 (more content not included)... Normal [employer] Tobacco Screening.on 023 Adult depression screening assessment No -[facility] DO Work Phone: Fall risk assessment a) No falls within the last year -[facility] DO Work Phone: Tobacco use status CPHS b) No -[facility] [employer] DO Work Phone: CBC AUTO DIFFon 02-22-2022 BASO # 0.1 103/ul Normal 0.0-0.1 [facility] Comment on above: Performed By: #### C BC #### [facility] [address] [place] [address] Dr. Roz Sanchez Basophils/100 WBC (Bld) 0.8 % Normal 0.2-2.[address] [facility] Comment on above: Performed By: #### C BC #### [facility] [address] [place] [address] Dr. Roz Sanchez EO # 0.2 103/ul Normal 0.0-0.7 [facility] Comment on above: Performed By: #### C BC #### [facility] [address] [place] [address] Dr. Roz Sanchez Eosinophils/100 WBC (Bld) 1.2 % Normal 0.9-7.[address] [facility] Comment on above: Performed By: #### C BC #### [facility] [address] [place] [address] Dr. Roz Sanchez Erythrocyte distribution width (RBC) [Ratio] 13.1 % Normal 11.0-15.[address] [facility] Comment on above: Performed By: #### C BC #### [facility] [address] [place] [address] Dr. Roz Sanchez Hematocrit (Bld) [Volume fraction] 36.4 % Normal 36.0-48.[address] [facility] Comment on above: Performed By: #### C BC #### [facility] [address] [place] [address] Dr. Roz Sanchez Hemoglobin (Bld) [Mass/Vol] 11.8 g/dL Critically low 12.0-16.[address] [facility] Comment on above: Performed By: #### C BC #### [facility] [address] [place] [address] Dr. Roz Sanchez IG # 0.04 10e3/ul Critically high 0.00-0.03 [facility] Comment on above: Performed By: #### C BC #### [facility] [address] [place] [address] Dr. Roz Sanchez IG % 0.3 % Normal 0.0-0.5 [facility] Comment on above: Performed By: #### C BC #### [facility] [address] [place] [address] Dr. Roz Sanchez LYMPH # 3.1 103/ul Normal 1.2-3.8 [facility] Comment on above: Performed By: #### C BC #### [facility] [address] [place] [address] Dr. Roz Sanchez Lymphocytes/100 WBC (Bld) 23.8 % Normal 20.5-60.0 [facility] Comment on above: Performed By: #### C BC #### [facility] [address] [place] [address] Dr. Roz Sanchez MANUAL DIFF REQ NO Normal [facility] Comment on above: Performed By: #### C BC #### [facility] [address] [place] [address] Dr. Roz Sanchez MCH (RBC) [Entitic mass] 28.2 pg Normal 26.7-34.0 [facility] Comment on above: Performed By: #### C BC #### [facility] [address] [place] [address] Dr. Roz Sanchez MCHC (RBC) [Mass/Vol] 32.4 g/dL Normal 29.9-35.2 [facility] Comment on above: Performed By: #### C BC #### [facility] [address] [place] [address] Dr. Roz Sanchez MCV (RBC) [Entitic vol] 87.1 fL Normal 81.0-99.0 [facility] Comment on above: Performed By: #### C BC #### [facility] [address] [place] [address] Dr. Roz Sanchez MONO # 1.0 103/ul Critically high 0.3-0.8 [facility] Comment on above: Performed By: #### C BC #### [facility] [address] [place] [address] Dr. Roz Sanchez Monocytes/100 WBC (Bld) 7.3 % Normal 1.7-12.0 [facility] Comment on above: Performed By: #### C BC #### [facility] [address] [place] [address] Dr. Roz Sanchez NEUT # 8.7 103/ul Critically high 1.4-6.5 [facility] Comment on above: Performed By: #### C BC #### [facility] [address] [place] [address] Dr. Roz Sanchez Neutrophils/100 WBC (Bld) 66.6 % Normal 43.0-75.0 [facility] Comment on above: Performed By: #### C BC #### [facility] [address] [place] [address] Dr. Roz Sanchez Platelet mean volume (Bld) [Entitic vol] 10.1 fL Normal 9.5-13.5 [facility] Comment on above: Performed By: #### C BC #### [facility] [address] [place] [address] Dr. Roz Sanchez PLT 252 103/ul Normal 150-[address] [facility] Comment on above: Performed By: #### C BC #### [facility] [address] [place] [address] Dr. Roz Sanchez RBC 4.18 106/ul Critically low 4.20-5.[address] [facility] Comment on above: Performed By: #### C BC #### [facility] [address] [place] [address] Dr. Roz Sanchez WBC 13.1 103/ul Critically high 4.0-11.0 [facility] Comment on above: Performed By: #### C BC #### [facility] [address] [place] [address] Dr. Roz Sanchez PROF 14(COMP METB)on 022 Albumin [Mass/Vol] 3.8 g/dL Normal 3.4-5.0 [facility] Comment on above: Performed By: #### C MP #### [facility] [address] [place] [address] Dr. Roz Sanchez Albumin/Globulin [Mass ratio] 1.2 {ratio} Normal [facility] Comment on above: Performed By: #### C MP #### [facility] [address] [place] [address] Dr. Roz Sanchez ALP [Catalytic activity/Vol] 88 U/L Normal 46-[address] [facility] Comment on above: Performed By: #### C MP #### [facility] [address] [place] [address] Dr. Roz Sanchez ALT [Catalytic activity/Vol] 12 U/L Critically low 14-59 [facility] Comment on above: Performed By: #### C MP #### [facility] [address] [place] [address] Dr. Roz Sanchez Anion gap [Moles/Vol] 9.8 mmol/L Normal [facility] Comment on above: Performed By: #### C MP #### [facility] [address] [place] [address] Dr. Roz Sanchez AST [Catalytic activity/Vol] 18 U/L Normal 15-[address] [facility] Comment on above: Performed By: #### C MP #### [facility] [address] [place] [address] Dr. Roz Sanchez Bilirubin [Mass/Vol] 0.5 mg/dL Normal 0.2-1.[address] [facility] Comment on above: Performed By: #### C MP #### [facility] [address] [place] [address] Dr. Roz Sanchez Calcium [Mass/Vol] 9.1 mg/dL Normal 8.5-10.[address] [facility] Comment on above: Performed By: #### C MP #### [facility] [address] [place] [address] Dr. Roz Sanchez Chloride [Moles/Vol] 103 mmol/L Normal 98-[address] [facility] Comment on above: Performed By: #### C MP #### [facility] [address] [address] [address] Roz Sanchez CO2 [Moles/Vol] 27.9 mmol/L Normal 21.0-32.0 [facility] Comment on above: Performed By: #### C MP #### [facility] [address] [address] [address] Roz Sanchez Creatinine [Mass/Vol] 0.82 mg/dL Normal 0.55-1.02 [facility] Comment on above: Performed By: #### C MP #### [facility] [address] [address] [address] Roz Sanchez EGFR-AF IRAQI >60 Normal >=60 [facility] Comment on above: Performed By: #### C MP #### [facility] [address] [place] [address] Dr. Roz Sanchez EGFR-NON AF IRAQI >60 Normal >=60 [facility] Comment on above: Performed By: #### C MP #### [facility] [address] [address] [address] Roz Sanchez Globulin (S) [Mass/Vol] 3.1 g/dL Normal [facility] Comment on above: Performed By: #### C MP #### [facility] [address] [address] [address] Roz Sanchez Glucose [Mass/Vol] 128 mg/dL Critically high 74-106 [facility] Comment on above: Performed By: #### C MP #### [facility] [address] [address] [address] Roz Sanchez Potassium [Moles/Vol] 3.7 mmol/L Normal 3.5-5.[address] [facility] Comment on above: Performed By: #### C MP #### [facility] [address] [place] [address] Dr. Roz Sanchez Protein [Mass/Vol] 6.9 g/dL Normal 6.4-8.[address] [facility] Comment on above: Performed By: #### C MP #### [facility] [address] [place] [address] Dr. Roz Sanchez Sodium [Moles/Vol] 137 mmol/L Normal 136-[address] [facility] Comment on above: Performed By: #### C MP #### [facility] [address] [place] [address] Dr. Roz Sanchez Urea nitrogen [Mass/Vol] 19.0 mg/dL Critically high 7.0-18.0 [facility] Comment on above: Performed By: #### C MP #### [facility] [address] [place] [address] Dr. Roz Sanchez Urea nitrogen/Creatinine [Mass ratio] 23.2 mg/mg Normal [facility] Comment on above: Performed By: #### C MP #### [facility] [address] [place] [address] Dr. Roz Sanchez PROTIMEon 02-22-2022 INR Coag (PPP) [Relative time] 1.02 {INR} Normal [facility] Comment on above: Performed By: #### P TT, PT #### [facility] [address] [place] [address] Dr. Roz Sanchez INR GUIDELINES SEE BELOW Normal [facility] Comment on above: Result Comment: ALEX RED INR: 2.0 - 3.0 CONDITIONS NOT LISTED BELOW 2.5 - 3.5 FOR PROSTHETIC HEART VALVE REPLACEMENT 2.5 - 3.5 RECURRENT THROMBOSIS Performed By: #### P TT, PT #### [facility] [address] [place] [address] Dr. Roz Sanchez PT Coag (PPP) [Time] 11.0 s Normal 9.0-11.6 [facility] Comment on above: Performed By: #### P TT, PT #### [facility] [address] [place] [address] Dr. Roz Sanchez PTTon 02-22-2022 aPTT Coag (Bld) [Time] 26.0 s Normal 22.3-36.2 [facility] Comment on above: Performed By: #### P TT, PT #### [facility] [address] [place] [address] Dr. Roz Sanchez US ARTERY ARM LTon US ARTERY ARM LT EXAMINATION: US TAYLOR RY ARM LT HISTORY: Hematoma COMPARISON: No relevant comparison available. TECHNIQUE: Color duplex Doppler ultrasound evaluation analysis was performed in the usual manner. FINDINGS: LEFT UPPER EXTREMITY ARTERIAL Subclavian Proximal PSV: 128.8 cm/s Subclavian Proximal EDV: 0.0 cm/s Axillary PSV: 100.9 cm/s Axillary EDV:0.0 cm/s Brachial Proximal PSV: 112.1 cm/s Proximal EDV: 0.0 cm/s Distal PSV: 106.4 cm/s Distal EDV: 0.0 cm/s Radial Proximal PSV: 86.9 cm/s Proximal EDV: 0.0 cm/s Distal PSV: 84.2 cm/s Distal EDV: 0.0 cm/s Ulnar Proximal PSV: 61.8 cm/s Proximal EDV: 0.0 cm/s Distal PSV: 61.1 cm/s Distal EDV: 0.0 cm/s WAVE FORM: Biphasic waveform throughout the upper extremity. VESSEL LUMEN: No significant narrowing. Mild residual atherosclerosis FLOW VELOCITY: No significantly increased or decreased flow velocity. IMPRESSION: No flow significant stenosis occlusion or aneurysm Electronically authenticated by: TESS OVALLES Date: 2022-02-22 17:48 Normal [facility] US VENOUS DOPPLER L Nadege US VENOUS DOPPLER L ARM EXAMINATION: US VENOUS DOPPLER L ARM HISTORY: Hematoma COMPARISON: No relevant comparison available. TECHNIQUE: A scale, color and Doppler ultrasound FINDINGS: Region: Left arm Thrombus: None Flow: Normal Augmentation: Normal Compressibility: Normal IMPRESSION: No deep or superficial vein thrombus in the left arm *Exam performed in accordance with [facility] practice guidelines- Peripheral venous ultrasound, June 07, 2009. Electronically authenticated by: TESS OVALLES Date: 2022-02-22 17:46 Normal [facility] XR HUMERUS LT MIN 2Von 02-22 XR HUMERUS LT MIN 2V EXAM: XR HUMERUS LT MIN 2V HISTORY: Pain COMPARISON: None. TECHNIQUE: 2 views of the left humerus were obtained. FINDINGS: No acute fracture or dislocation is seen. The left humeral head is well-seated on the glenoid. There are mild degenerative changes of the glenohumeral joint. The imaged left lung demonstrates hypoventilatory changes. IMPRESSION: 1. Mild degenerative changes of the glenohumeral joint with no acute abnormality of the left humerus seen. Electronically authenticated by: Stewart MTZ Date: 2022-02-22 01:[address] [facility] Tobacco Screening.on 022 Adult depression screening assessment No [facility] DO Work Phone: Fall risk assessment b) One or more fall s in the last year [facility] DO Work Phone: Tobacco use status [facility] b) No [facility] DO Work Phone: Tobacco Screening.on Fall risk assessment b) One or more fall s in the last year [facility] DO Work Phone: Tobacco use status [facility] b) No [facility] DO Work Phone: No Panel Informationon 03-19 Normal [facility] DO Work Phone: Tobacco Screening.on Fall risk assessment b) One or more fall s in the last year [facility] DO Work Phone: Tobacco use status [facility] b) No [facility] DO Work Phone: Vital Signs Date Time Vital Sign Value Performing Clinician Facility 03-16-2024 13:45-0500 Body height 160 cm Álvaro Pruitt MD Work Phone: [facility] 03-16-2024 13:45-0500 Body mass index (BMI) [Ratio] 27.63 kg/m2 Álvaro Pruitt MD Work Phone: [facility] 03-16-2024 13:45-0500 Body weight 70.76 kg Álvaro Pruitt MD Work Phone: [facility] 03-16-2024 13:45-0500 Diastolic blood pressure 70 mm[Hg] Álvaro Pruitt MD Work Phone: [facility] 03-16-2024 13:45-0500 Heart rate 76 /min Álvaro Pruitt MD Work Phone: [facility] 03-16-2024 13:45-0500 Systolic blood pressure 128 mm[Hg] Álvaro Pruitt MD Work Phone: [facility] 09-22-2023 10:36-0400 Body height [address] 09-22-2023 10:36-0400 Body mass index (BMI) [Ratio] 27.63 kg/m2 [address] 09-22-2023 10:36-0400 Body weight 70.[address] 09-22-2023 10:36-0400 Diastolic blood pressure 68 mm[Hg] [address] 09-22-2023 10:36-0400 Systolic blood pressure 124 mm[Hg] [address] 08-17-2023 09:01-0400 Body height 160 cm Álvaro Pruitt MD Work Phone: [facility] 08-17-2023 09:01-0400 Body mass index (BMI) [Ratio] 27.63 kg/m2 Álvaro Pruitt MD Work Phone: [facility] 08-17-2023 09:01-0400 Body weight 70.76 kg Álvaro Pruitt MD Work Phone: [facility] 08-17-2023 09:01-0400 Diastolic blood pressure 65 mm[Hg] Álvaro Pruitt MD Work Phone: [facility] 08-17-2023 09:01-0400 Heart rate 78 /min Álvaro Pruitt MD Work Phone: [facility] 08-17-2023 09:01-0400 Systolic blood pressure 128 mm[Hg] Álvaro Pruitt MD Work Phone: [facility] 01-19-2023 10:20-0500 Body height 160 cm Álvaro Pruitt MD Work Phone: [facility] 01-19-2023 10:20-0500 Body mass index (BMI) [Ratio] 26.39 kg/m2 Álvaro Pruitt MD Work Phone: [facility] 01-19-2023 10:20-0500 Body weight 67.59 kg Álvaro Pruitt MD Work Phone: [facility] 01-19-2023 10:20-0500 Diastolic blood pressure 50 mm[Hg] Álvaro Pruitt MD Work Phone: [facility] 01-19-2023 10:20-0500 Heart rate 72 /min Álvaro Pruitt MD Work Phone: [facility] 01-19-2023 10:20-0500 Systolic blood pressure 102 mm[Hg] Álvaro Pruitt MD Work Phone: [facility] 09-21-2022 23:30-0400 Diastolic blood pressure 60 mm[Hg] Kaylinn Dokken [facility] 09-21-2022 23:30-0400 Heart rate 61 /min Kaylinn Dokken [facility] 09-21-2022 23:30-0400 Mean blood pressure 85 mm[Hg] Kaylinn Dokken [facility] 09-21-2022 23:30-0400 Respiratory rate 14 /min Kaylinn Dokken [facility] 09-21-2022 23:30-0400 SaO2% (BldA) [Mass fraction] 99 % Kaylinn Dokken [facility] 09-21-2022 23:30-0400 Systolic blood pressure 134 mm[Hg] Kaylinn Dokken [facility] 09-21-2022 22:30-0400 Diastolic blood pressure 50 mm[Hg] Kaylinn Dokken [facility] 09-21-2022 22:30-0400 Heart rate 62 /min Kaylinn Dokken [facility] 09-21-2022 22:30-0400 Mean blood pressure 72 mm[Hg] Kaylinn Dokken [facility] 09-21-2022 22:30-0400 Respiratory rate 20 /min Kaylinn Dokken [facility] 09-21-2022 22:30-0400 SaO2% (BldA) [Mass fraction] 98 % Kaylinn Dokken [facility] 09-21-2022 22:30-0400 Systolic blood pressure 116 mm[Hg] Kaylinn Dokken [facility] 09-21-2022 21:30-0400 Diastolic blood pressure 55 mm[Hg] Kaylinn Dokken [facility] 09-21-2022 21:30-0400 Heart rate 59 /min Kaylinn Dokken [facility] 09-21-2022 21:30-0400 Mean blood pressure 79 mm[Hg] Kaylinn Dokken [facility] 09-21-2022 21:30-0400 Respiratory rate 12 /min Kaylinn Dokken [facility] 09-21-2022 21:30-0400 SaO2% (BldA) [Mass fraction] 100 % Kaylinn Dokken [facility] 09-21-2022 21:30-0400 Systolic blood pressure 127 mm[Hg] Altagracia Rosario [facility] 09-21-2022 20:05-0400 Body temperature 98.06 [degF] Altagracia Guzmanen [facility] 09-21-2022 20:05-0400 Heart rate 88 /min Altagracia Rosario [facility] 09-21-2022 20:05-0400 Respiratory rate 16 /min Altagracia Rosario [facility] 09-18-2022 14:11-0400 Diastolic blood pressure 55 mm[Hg] Memo Catherine [facility] 09-18-2022 14:11-0400 Heart rate 72 /min Memo Catherine [facility] 09-18-2022 14:11-0400 Mean blood pressure 71 mm[Hg] Memo Dorene [facility] 09-18-2022 14:11-0400 Respiratory rate 16 /min Memo Saraviae [facility] 09-18-2022 14:11-0400 SaO2% (BldA) [Mass fraction] 99 % Memo Dorene [facility] 09-18-2022 14:11-0400 Systolic blood pressure 103 mm[Hg] Memo Dorene [facility] 09-18-2022 13:25-0400 Diastolic blood pressure 57 mm[Hg] Memo Dorene [facility] 09-18-2022 13:25-0400 Heart rate 70 /min Memo Dorene [facility] 09-18-2022 13:25-0400 Mean blood pressure 77 mm[Hg] Memo Saraviae [facility] 09-18-2022 13:25-0400 Respiratory rate 16 /min Memo Saraviae [facility] 09-18-2022 13:25-0400 SaO2% (BldA) [Mass fraction] 100 % Memo Saraviae [facility] 09-18-2022 13:25-0400 Systolic blood pressure 117 mm[Hg] Memo Saraviae [facility] 09-18-2022 12:27-0400 Diastolic blood pressure 93 mm[Hg] Memo Saraviae [facility] 09-18-2022 12:27-0400 Heart rate 67 /min Memo Saraviae [facility] 09-18-2022 12:27-0400 Mean blood pressure 97 mm[Hg] Memo Saraviae [facility] 09-18-2022 12:27-0400 Respiratory rate 16 /min Memo Saraviae [facility] 09-18-2022 12:27-0400 SaO2% (BldA) [Mass fraction] 98 % Memo Saraviae [facility] 09-18-2022 12:27-0400 Systolic blood pressure 105 mm[Hg] Memo Saraviae [facility] 09-18-2022 09:47-0400 Body temperature 97.88 [degF] Memo Saraviae [facility] 09-18-2022 09:47-0400 Heart rate 76 /min Memo Saraviae [facility] 09-01-2022 10:01-0400 Diastolic blood pressure 60 mm[Hg] Danielle Albarran She Work Phone: [facility] [facility] DO Work Phone: 09-01-2022 10:01-0400 Systolic blood pressure 130 mm[Hg] Danielle M She Work Phone: [facility] [facility] DO Work Phone: 09-01-2022 09:57-0400 Body height 160.02 cm Danielle M She Work Phone: [facility] [facility] DO Work Phone: 09-01-2022 09:57-0400 Body mass index (BMI) [Ratio] 26.66 kg/m2 Danielle M She Work Phone: [facility] [facility] DO Work Phone: 09-01-2022 09:57-0400 Body surface area Derived from formula 1.71 m2 Danielle M She Work Phone: [facility] 250 DO Work Phone: 09-01-2022 09:57-0400 Body weight 68.27 kg Danielle M She Work Phone: [facility] [facility] DO Work Phone: 09-01-2022 09:57-0400 Diastolic blood pressure 62 mm[Hg] Danielle M She Work Phone: [facility] 250 DO Work Phone: 09-01-2022 09:57-0400 Heart rate 62 /min Danielle M She Work Phone: [facility] DO Work Phone: 09-01-2022 09:57-0400 Systolic blood pressure 130 mm[Hg] Danielle M She Work Phone: [facility] [facility] DO Work Phone: 07-13-2022 09:51-0400 Body height 160.02 cm Danielle Velardegles Work Phone: [facility] [facility] DO Work Phone: 07-13-2022 09:51-0400 Body mass index (BMI) [Ratio] 27.28 kg/m2 Danielle Albarran She Work Phone: [facility] 250 DO Work Phone: 07-13-2022 09:51-0400 Body surface area Derived from formula 1.73 m2 Danielle Deion VelardeShe Work Phone: [facility] 250 DO Work Phone: 07-13-2022 09:51-0400 Body weight 69.85 kg Danielle Velardegles Work Phone: [facility] 250 DO Work Phone: 07-13-2022 09:51-0400 Diastolic blood pressure 70 mm[Hg] Danielle Velardegles Work Phone: [facility] 250 DO Work Phone: 07-13-2022 09:51-0400 Heart rate 60 /min Danielle Velardegles Work Phone: [facility] DO Work Phone: 07-13-2022 09:51-0400 Systolic blood pressure 152 mm[Hg] Danielle Albarran She Work Phone: [facility] [facility] DO Work Phone: 05-28-2022 16:57-0400 Body temperature 97.9 [degF] MD Danielle Nowak [facility] 05-28-2022 16:57-0400 Diastolic blood pressure 76 mm[Hg] MD Danielle Nowak [facility] 05-28-2022 16:57-0400 Heart rate 66 /min MD Santos She [facility] 05-28-2022 16:57-0400 Respiratory rate 19 /min MD Santos She [facility] 05-28-2022 16:57-0400 SaO2% (BldA) [Mass fraction] 98 % [facility] 16:57-0400 Systolic blood pressure 158 mm[Hg] MD Danielle Nowak [facility] 05-28-2022 12:09-0400 Body height 160.02 cm Danielle She [facility] 05-28-2022 12:09-0400 Body weight 70.5 [facility] 10:58-0500 Diastolic blood pressure 70 mm[Hg] Danielle Velardegles Work Phone: [facility] 250 DO Work Phone: 05-18-2022 10:58-0500 Systolic blood pressure 134 mm[Hg] Danielle Albarran She Work Phone: [facility] 250 DO Work Phone: 05-18-2022 10:40-0500 Body height 160.02 cm Danielle Velardegles Work Phone: [facility] DO Work Phone: 05-18-2022 10:40-0500 Body mass index (BMI) [Ratio] 27.46 kg/m2 Danielle Albarran She Work Phone: [facility] [facility] DO Work Phone: 05-18-2022 10:40-0500 Body surface area Derived from formula 1.74 m2 Danielle M She Work Phone: [facility] 250 DO Work Phone: 05-18-2022 10:40-0500 Body weight 70.31 kg Danielle M Hse Work Phone: [facility] [facility] DO Work Phone: 05-18-2022 10:40-0500 Diastolic blood pressure 64 mm[Hg] Danielle M She Work Phone: [facility] [facility] DO Work Phone: 05-18-2022 10:40-0500 Heart rate 76 /min Danielle M She Work Phone: [facility] [facility] DO Work Phone: 05-18-2022 10:40-0500 Systolic blood pressure 146 mm[Hg] Danielle M She Work Phone: [facility] DO Work Phone: 05-11-2022 07:45-0500 30 1 Danielle M She Work Phone: [facility] [facility] [place] Work Phone: Comment on above: [id number] 03-30-2022 13:32-0500 Diastolic blood pressure 64 mm[Hg] Danielle M She Work Phone: [facility] [facility] DO Work Phone: 03-30-2022 13:32-0500 Systolic blood pressure 132 mm[Hg] Danielle M She Work Phone: [facility] DO Work Phone: 03-30-2022 13:12-0500 Body height 160.02 cm Danielle M She Work Phone: [facility] [facility] DO Work Phone: 03-30-2022 13:12-0500 Body mass index (BMI) [Ratio] 27.81 kg/m2 Danielle M She Work Phone: [facility] [facility] DO Work Phone: 03-30-2022 13:12-0500 Body surface area Derived from formula 1.74 m2 Danielle M She Work Phone: [facility] DO Work Phone: 03-30-2022 13:12-0500 Body weight 71.22 kg Danielle M She Work Phone: [facility] DO Work Phone: 03-30-2022 13:12-0500 Diastolic blood pressure 88 mm[Hg] Danielle M She Work Phone: [facility] DO Work Phone: 03-30-2022 13:12-0500 Heart rate 76 /min Danielle M She Work Phone: [facility] DO Work Phone: 03-30-2022 13:12-0500 Systolic blood pressure 150 mm[Hg] Danielle M She Work Phone: [facility] [facility] DO Work Phone: 07-02-2021 14:04-0400 Body height 160.02 cm Danielle M She Work Phone: [facility] [facility] DO Work Phone: 07-02-2021 14:04-0400 Body mass index (BMI) [Ratio] 27.99 kg/m2 Danielle M She Work Phone: [facility] DO Work Phone: 07-02-2021 14:04-0400 Body surface area Derived from formula 1.75 m2 Danielle M She Work Phone: [facility] [facility] DO Work Phone: 07-02-2021 14:04-0400 Body weight 71.67 kg Danielle M She Work Phone: [facility] DO Work Phone: 07-02-2021 14:04-0400 Diastolic blood pressure 78 mm[Hg] Danielle M She Work Phone: [facility] DO Work Phone: 07-02-2021 14:04-0400 Heart rate 78 /min Danielle M She Work Phone: [facility] DO Work Phone: 07-02-2021 14:04-0400 Systolic blood pressure 138 mm[Hg] Danielle M She Work Phone: [facility] DO Work Phone: 04-06-2021 09:24-0500 Diastolic blood pressure 86 mm[Hg] Danielle M She Work Phone: [facility] DO Work Phone: 04-06-2021 09:24-0500 Systolic blood pressure 122 mm[Hg] Danielle M She Work Phone: [facility] DO Work Phone: 04-06-2021 08:57-0500 Body height 165.1 cm Danielle M She Work Phone: [facility] DO Work Phone: 04-06-2021 08:57-0500 Body mass index (BMI) [Ratio] 25.96 kg/m2 Danielle M She Work Phone: [facility] DO Work Phone: 04-06-2021 08:57-0500 Body surface area Derived from formula 1.78 m2 Danielle M She Work Phone: [facility] DO Work Phone: 04-06-2021 08:57-0500 Body weight 70.76 kg Danielle M She Work Phone: [facility] [facility] DO Work Phone: 04-06-2021 08:57-0500 Diastolic blood pressure 88 mm[Hg] Danielle M She Work Phone: [facility] [facility] DO Work Phone: 04-06-2021 08:57-0500 Heart rate 74 /min Danielle M She Work Phone: [facility] [facility] DO Work Phone: 04-06-2021 08:57-0500 Systolic blood pressure 140 mm[Hg] Danielle M She Work Phone: [facility] [facility] DO Work Phone: 03-19-2021 08:00-0500 26 1 Danielle M She Work Phone: [facility] DO Work Phone: Comment on above: [id number] 02-18-2021 10:30-0500 Body height 160.02 cm Luke Scott II Other [employer] Other 02-18-2021 10:30-0500 Body mass index (BMI) [Ratio] 26.39 kg/m2 Luke Scott II Other [employer] Other 02-18-2021 10:30-0500 Body weight 67.59 kg Luke Scott II Other [employer] Other 02-16-2021 14:15-0500 Body height 165.1 cm Danielle M She Work Phone: [facility] [employer] 250 DO Work Phone: 02-16-2021 14:15-0500 Body mass index (BMI) [Ratio] 25.63 kg/m2 Danielle M She Work Phone: [facility] [employer] 250 DO Work Phone: 02-16-2021 14:15-0500 Body surface area Derived from formula 1.77 m2 Danielle M She Work Phone: [facility] [employer] 250 DO Work Phone: 02-16-2021 14:15-0500 Body weight 69.85 kg Danielle M She Work Phone: [facility] [employer] 250 DO Work Phone: 02-16-2021 14:15-0500 Diastolic blood pressure 80 mm[Hg] Danielle M She Work Phone: [facility] [employer] 250 DO Work Phone: 02-16-2021 14:15-0500 Heart rate 78 /min Danielle M She Work Phone: [facility] [employer] DO Work Phone: 02-16-2021 14:15-0500 Systolic blood pressure 136 mm[Hg] Danielle M She Work Phone: [facility] [employer] 250 DO Work Phone: Encounters Encounter Date Encounter Type Care Provider Facility Start: 03-16-2024 End: 03-16-2024 Office outpatient visit 25 minutes Álvaro Pruitt MD Work Phone: [facility] Comment on above: Cardiomyopathy, unsp ecified type (Multi); Hypertension, benign; LBBB (left bundle branch block); Mixed hyperlipidemia; Type 2 diabetes mellitus without complication, without long-term current use of insulin (Multi); Overweight with body mass index (BMI) of 27 to 27.9 in adult; Never smoked tobacco Start: 03-16-2024 End: 03-16-2024 ambulatory [facility] Start: 01-25-2024 End: 01-25-2024 Nadia Nowak MD Work Phone: [facility] Comment on above: Type 2 diabetes keny itus with other specified complication, without long-term current use of insulin (CMS/HCC); Mixed hyperlipidemia (CMS/HCC) Start: 01-23-2024 End: 01-23-2024 Nadia Nowak MD Work Phone: [facility] Comment on above: Mixed hyperlipidemia (CMS/HCC); Type 2 diabetes mellitus with other specified complication, without long-term current use of insulin (CMS/HCC) Start: 11-28-2023 End: 11-29-2023 Nadia Nowak MD Work Phone: [facility] Comment on above: Type 2 diabetes keny itus with other specified complication, without long-term current use of insulin (CMS/HCC) Start: 09-22-2023 End: 09-22-2023 Subsequent hospital visit by physician Charlette Brooks Echo/Vasc Room 2 [facility] Comment on above: Cardiomyopathy, unsp ecified type (Multi); 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 (Multi) Start: 09-22-2023 End: 09-22-2023 ambulatory [facility] Start: 08-17-2023 End: 08-17-2023 Office outpatient visit 25 minutes Álvaro Pruitt MD Work Phone: [facility] Comment on above: Cardiomyopathy, unsp ecified type (Multi) (Primary Dx); Hypertension, benign; LBBB (left bundle branch block); Mixed hyperlipidemia; Type 2 diabetes mellitus without complication, without long-term current use of insulin (Multi); Hyperlipidemia, unspecified hyperlipidemia type; Overweight with body mass index (BMI) of 27 to 27.9 in adult; Never smoked tobacco; 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 (Multi) Start: 08-17-2023 End: 08-17-2023 ambulatory ÁLVARO PRUITT [facility] Start: 02-08-2023 End: 02-08-2023 ambulatory DANIELLE Deion SHE Not Available Start: 01-19-2023 End: 01-19-2023 Office outpatient visit 25 minutes Álvaro Pruitt MD Work Phone: [facility] Comment on above: Hypertension, benign ; Cardiomyopathy, unspecified type (CMS/HCC); Mixed hyperlipidemia; Aneurysm ([facility]/HCC); Type 2 diabetes mellitus without complication, without long-term current use of insulin ([facility]) Start: 09-21-2022 End: 09-22-2022 Emergency department patient visit Rosevashauna Rosario Facility:[facility] Start: 09-21-2022 End: 09-22-2022 Emergency department patient visit [facility] Start: 09-18-2022 End: 09-18-2022 Emergency department patient visit Memo Catherine Facility:[facility] Start: 09-18-2022 End: 09-18-2022 Emergency department patient visit Mmeo Catherine [facility] Start: 09-01-2022 Office outpatient vi sit 10 minutes Danielle Deion She [facility] Work Phone: Start: 09-01-[address] Álvaro Pruitt Facility: Start: 08-05-[address] Álvaro Pruitt Facility: Start: 07-13-2022 Office outpatient vi sit 25 minutes Danielle M She [facility] Work Phone: Start: 07-13-[address] Álvaro Pruitt Facility: Start: 06-22-2022 End: 06-23-[address] ÁLVARO PRUITT Facility:H1 Start: 05-28-[address] Álvaro Pruitt Facility:[id number] Start: 05-28-2022 End: 05-28-2022 ambulatory Álvaro Pruitt Facility:[facility] Start: 05-28-2022 End: 05-28-2022 Admission to same day surgery center MD Danielle Nowak [facility]-Customer Engagement Representative Work Phone: Start: 05-28-2022 End: 05-28-2022 ambulatory MD Danielle Nowak [facility] Work Phone: Start: 05-24-2022 End: 05-24-2022 ambulatory Álvaro Pruitt Facility:[facility] Start: 05-24-2022 End: 05-24-2022 ambulatory MD Danielle Nowak [facility] Work Phone: Start: 05-24-2022 End: 05-24-2022 Patient encounter procedure MD Danielle Nowak [facility] Work Phone: Start: 05-18-2022 Office outpatient vi sit 25 minutes Danielle M She Work Phone: [facility] DO Work Phone: Start: 05-18-[address] Álvaro Pruitt Facility: Start: 05-11-2022 Patient encounter procedure Danielle M She Work Phone: [facility] [address] [place] Work Phone: Start: 05-11-2022 ambulatory Ms. Kenan Huynh Facility:[id number] Start: 03-30-2022 Office outpatient vi sit 25 minutes Danielle M She Work Phone: [facility] DO Work Phone: Start: 03-30-2022 Patient encounter procedure Danielle M She Work Phone: [facility] DO Work Phone: Start: 03-30-2022 ambulatory Ms. Kenan Huynh Facility: Start: 02-22-2022 End: 02-23-[address] STEPHANIE HUYNH Facility:H1 Start: 01-19-2022 Rx Renewal Danielle M Ruggle s Work Phone: [facility] DO Work Phone: Start: 07-02-2021 Office outpatient vi sit 25 minutes Danielle Deion She Work Phone: [facility] DO Work Phone: Start: 04-07-2021 Chart Update Danielle Albarran Ruggle s Work Phone: [facility] DO Work Phone: Start: 04-06-2021 Office outpatient vi sit 25 minutes Danielle M She Work Phone: [facility] DO Work Phone: Start: 02-18-2021 End: 02-18-2021 ambulatory Luke Scott II Other [employer] Other Start: 02-18-2021 Postop follow up vis it related to original px Luke Scott II [facility] Start: 02-16-2021 AUDIT Danielle Deion Ruggle s Work Phone: [facility] DO Work Phone: Start: 02-16-2021 Office outpatient vi sit 15 minutes Danielle M She Work Phone: [facility] DO Work Phone: Start: 01-21-2021 End: 01-21-2021 ambulatory Luke Scott II Other [facility] Other Start: 01-21-2021 Postop follow up vis it related to original px Luke Scott II [facility] Radionuclide heart s tudy normal Danielle Velardegles Work Phone: -[facility] [facility] DO Work Phone: Procedures Date Procedure Procedure Detail Performing Clinician Start: 05-28-2022 CL [facility] Angio H emerald Nowak Start: 05-11-2022 Echocardiography Danielle Frankes Work Phone: Start: 03-14-2017 Colonoscopic polypectomy Danielle Frankes Work Phone: Start: 03-14-2011 Repair of bladder Memo Catherine Start: 03-14-2003 Replacement of left knee joint Memo Dorene Start: 03-14-1997 Aneurysm (disorder) Thierno n Dorene Start: 03-14-1992 Ligation of fallopian tube Memo Dorene Arthroplasty of knee Danielle Albarran She Work Phone: Comment on above: left; Cardiac catheterization Geraldine Frankes Work Phone: Dilation and curettage Danielle Frankes Work Phone: Dilation and curettage Memo Catherine hernia Memo Dorene Hernia repair Danielle Miller s Work Phone: Plan of Treatment Date Care Activity Detail Author Start: 11-01-2024 End: 11-01-2024 Patient encounter procedure 11/01/2024 9:10 AM EDT Office Visit [facility] [address] [address] Álvaro Pruitt MD [address] [facility] [address] [place] [address] [facility] Start: 09-21-2024 Echocardiography Echocardiogram [facility] Start: 03-16-2024 End: 03-16-2025 Alanine aminotransferase [Enzymatic activity/volume] in Serum or Plasma by With P-5'-P Alanine Aminotransferase Lab Routine Mixed hyperlipidemia Expected: 03/16/2024 (Approximate), Expires: 03/16/2025 [facility] Work Phone: Comment on above: Expected: 03/16/2024 (Approximate), Expi res: 03/16/2025 Start: 03-16-2024 End: 03-16-2025 Aspartate aminotransferase [Enzymatic activity/volume] in Serum or Plasma by With P-5'-P Aspartate Aminotransferase Lab Routine Mixed hyperlipidemia Expected: 03/16/2024 (Approximate), Expires: 03/16/2025 [facility] Work Phone: Comment on above: Expected: 03/16/2024 (Approximate), Expi res: 03/16/2025 Start: 03-16-2024 End: 03-16-2025 Basic metabolic 2000 panel - Serum or Plasma Basic Metabolic Panel Lab Routine Cardiomyopathy, unspecified type (Multi) Hypertension, benign Expected: 03/16/2024 (Approximate), Expires: 03/16/2025 [facility] Work Phone: Comment on above: Expected: 03/16/2024 (Approximate), Expi res: 03/16/2025 Start: 03-16-2024 End: 03-16-2025 CBC panel - Blood by Automated count CBC Lab Routine Cardiomyopathy, unspecified type (Multi) Hypertension, benign Expected: 03/16/2024 (Approximate), Expires: 03/16/2025 [facility] Work Phone: Comment on above: Expected: 03/16/2024 (Approximate), Expi res: 03/16/2025 Start: 03-16-2024 End: 03-16-2025 Lipid 1996 panel - Serum or Plasma Lipid Panel Lab Routine Mixed hyperlipidemia Expected: 03/16/2024 (Approximate), Expires: 03/16/2025 [facility] Work Phone: Comment on above: Expected: 03/16/2024 (Approximate), Expi res: 03/16/2025 Start: 03-16-2024 End: 03-16-2024 Patient encounter procedure 03/16/2024 2:00 PM EST Office Visit [facility] [address] [facility] [address] [place] [address] Álvaro Pruitt MD [address] [facility] [address] [place] [address] [facility] Start: 02-10-2024 Medicare Annual Wellness Visit Medicare Annual Wellness Visit (AWV) [facility] Start: 02-09-2024 Urine screening for protein Diabetes: Urine Protein Screening [facility] Start: 11-13-2023 COVID-19 Vaccine ( season) COVID-19 Vaccine ( season) [facility] Start: 11-13-2023 Influenza vaccination [facility] Start: 09-07-2023 End: 09-07-2023 Patient encounter procedure 09/07/2023 9:45 AM EDT Appointment [place] [id number] [facility] [address] [place] [address] [facility] Start: 08-26-2023 Glaucoma screening Diabetes: Retinopathy Screening [facility] Start: 08-17-2023 End: 08-16-2024 Basic metabolic 2000 panel - Serum or Plasma Basic Metabolic Panel Lab Routine Cardiomyopathy, unspecified type (Multi) Hypertension, benign Expected: 08/17/2023 (Approximate), Expires: 08/16/2024 [facility] Work Phone: Comment on above: Expected: 08/17/2023 (Approximate), Expi res: 08/16/2024 Start: 08-17-2023 End: 08-16-2025 US Heart Transthoracic Transthoracic Echo Complete Echocardiography Routine Cardiomyopathy, unspecified type (Multi) 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 (Multi) Expected: 08/17/2023 (Approximate), Expires: 08/16/2025 [facility] Work Phone: Comment on above: Expected: 08/17/2023 (Approximate), Expi res: 08/16/2025 Start: 05-11-2023 Echocardiography Echocardiogram [facility] Start: 05-11-2023 Hemoglobin A1c measurement Diabetes: Hemoglobin A1C [facility] Start: 02-03-2023 Medicare Annual Wellness Visit Medicare Annual Wellness Visit (AWV) [facility] Start: 01-19-2023 FUV, Provider: Álvaro Pruitt, Status: Pen, Time: 10:10 AM FUV, Provider: Álvaro Pruitt, Status: Pen, Time: 10:10 AM -[facility] [address] DO Work Phone: Start: 12-20-2022 FUV, Provider: Bronwyn Coe, Status: Pen, Time: 9:15 AM FUV, Provider: Bronwyn Coe, Status: Pen, Time: 9:15 AM -[facility] [address] DO Work Phone: Start: 11-12-2022 COVID-19 Vaccine ( season) COVID-19 Vaccine ( season) [facility] Start: 11-12-2022 Influenza vaccination Influenza Vaccine (#1) [facility] Start: 08-05-2022 TOM, Provider: KWAME FAIR PINION POLISHER 1,[id number], Status: Pen, Time: 10:00 AM TOM, Provider: KWAME [employer] POLISHER 1,[id number], Status: Pen, Time: 10:00 AM -[facility] [address] DO Work Phone: Start: 07-13-2022 FUV, Provider: Álvaro Pruitt, Status: Pen, Time: 10:00 AM FUV, Provider: Álvaro Pruitt, Status: Pen, Time: 10:00 AM -[facility] [facility] DO Work Phone: Start: 05-28-2022 End: 05-28-2022 [facility] Start: 05-26-2022 SURGNONUH, Provider: Álvaro Pruitt, Status: Pen, Time: 2:00 PM SURGNONUH, Provider: Álvaro Pruitt, Status: Pen, Time: 2:00 PM -[facility] [facility] DO Work Phone: Start: 05-11-2022 ECHO, Provider: GABRIELLA [facility] ULTRASOUND 01,[id number], Status: Pen, Time: 7:45 AM ECHO, Provider: GABRIELLA [facility] ULTRASOUND 01,[id number], Status: Pen, Time: 7:45 AM -[facility] [facility] DO Work Phone: Start: 04-12-2022 FUV, Provider: Kenan Pires, Status: Pen, Time: 9:30 AM FUV, Provider: Kenan Pires, Status: Pen, Time: 9:30 AM -[facility] [facility] DO Work Phone: Start: 04-06-2022 FUV, Provider: Brett Landa, Status: Pen, Time: 9:00 AM FUV, Provider: Brett Landa, Status: Pen, Time: 9:00 AM -[facility] [facility] DO Work Phone: Start: 04-06-2021 FUV, Provider: Brett Landa, Status: Pen, Time: 9:00 AM FUV, Provider: Brett Landa, Status: Pen, Time: 9:00 AM -[facility] [facility] DO Work Phone: Start: 03-19-2021 STRESS NUC, Provider: GABRIELLA [facility] NUCLEAR 01,[id number], Status: Pen, Time: 8:00 AM STRESS NUC, Provider: GABRIELLA [facility] NUCLEAR 01,[id number], Status: Pen, Time: 8:00 AM -[facility] [address] DO Work Phone: Start: 12-20-2021 RSV High Risk: (Elderly (60+) or Population) (1 - 1-dose 75+ series) RSV High Risk: (Elderly (60+) or Population) (1 - 1-dose 75+ series) [facility] Start: 2006 RSV patients and/or patients aged 60+ years (1 - 1-dose 60+ series) RSV patients and/or patients aged 60+ years (1 - 1-dose 60+ series) [facility] Start: 1996 Zoster Vaccines (1 of 2) Zoster Vaccines (1 of 2) [facility] Start: 1968 DTaP/Tdap/Td Vaccines (1 - Tdap) DTaP/Tdap/Td Vaccines (1 - Tdap) [facility] Start: 1965 Urine screening for protein Diabetes: Urine Protein Screening [facility] Start: 1964 Hepatitis C screening Hepatitis C Screening [facility] Start: 1956 Diabetic foot examination Diabetes: Foot Exam [facility] Start: 1956 Glaucoma screening Diabetes: Retinopathy Screening [facility] Start: 1946 COVID-19 Vaccine (#1) COVID-19 Vaccine (#1) [facility] Start: 1946 Creatinine measurement Creatinine Level [facility] Start: 1946 Hemoglobin A1c measurement Diabetes: Hemoglobin A1C [facility] Start: 1946 Lipid panel Lipid Panel [facility] Start: 1946 Medicare Annual Wellness Visit Medicare Annual Wellness Visit (AWV) [facility] Start: 1946 Potassium measurement Potassium Level [facility] Start: 1946 Screening for osteoporosis Bone Density Scan [facility] Patient Education Metformin Metoprolol [facility] Work Phone: Patient referral [facility] Work Phone: End: 09-22-2023 Heart Transthoracic [facility] Work Phone: Comment on above: Once for 1 Occurrences starting 09/22/19 until 09/22/2023 Immunizations Immunization Date Immunization Notes Care Provider Fa cility 01-06-2019 influenza, high dose seasonal, preservative-free Danielle Nowak Work Phone: [facility] 01-06-2019 influenza, seasonal, injectable, preservative free Danielle Nowak MD Work Phone: [facility] 01-06-2019 influenza virus vacc ine, unspecified formulation Álvaro Pruitt MD Work Phone: [facility] Work Phone: 01-31-2018 influenza, high dose seasonal, preservative-free Álvaro Pruitt MD Work Phone: [facility] Work Phone: 01-31-2018 pneumococcal conjuga te vaccine, 13 valent Álvaro Pruitt MD Work Phone: [facility] Work Phone: 03-23-2012 influenza virus vacc ine, whole virus Danielle Nowak Work Phone: [facility] 06-10-2011 influenza virus vacc ine, unspecified formulation Álvaro Pruitt MD Work Phone: [facility] Work Phone: 06-10-2011 pneumococcal polysaccharide vaccine, 23 valent Álvaro Pruitt MD Work Phone: [facility] Work Phone: 06-02-2011 pneumococcal polysaccharide vaccine, 23 valent Danielle Nowak Work Phone: [facility] 250 DO Work Phone: Payers Date Payer Category Payer Medicare (Managed Care) [facility] MEDICARE [id number] 2024 Medicare [id number] 2022 Medicare [id number] 2022 Self-pay [id number] 2011 Medicare [id number] 2011 Private Health Insurance GENERIC COMMERCIAL [id number] 2011 Unknown 1959 Medicare [id number] 1959 Unknown [id number] [id number] 1946 Unknown [id number] [id number] .1068 1946 Unknown [id number] 2.16840.1.111151.3.579.2 .593 1946 Unknown [id number] 2.16840.1.955644.3.579.2 .593 1946 Unknown [id number] 2.16840.1.949297.3.579.2 .593 1946 Unknown [id number] 2.16.840.1.536118.3.579.2 .727 1946 Unknown [id number] 2.16.840.1.778045.3.579.2 .727 1946 Unknown [id number] 2.16.840.1.162518.3.579.2 .356 1946 Unknown [id number] 2.16.840.1.459658.3.579.2 .356 1946 Unknown [id number] 2.16.840.1.633979.3.579.2 .356 1946 Unknown [id number] 2.16.840.1.438478.3.579.2 .356 1946 Unknown [id number] 2.16.840.1.461984.3.579.2 .356 1946 Unknown [id number] 2.16.840.1.186553.3.579.2 .356 1946 Unknown [id number] 2.16.840.1.310507.3.579.2 .1259 1946 Unknown [id number] 2.16.840.1.171565.3.579.2 .1246 1946 Unknown [id number] 2.16.840.1.197001.3.579.2 .1244 1946 Unknown [id number] 2.16.840.1.924005.3.579.2 .1244 Unknown [id number] 2.16.840.1.024092.3.579.2 .531 Unknown [id number] [id number] .531 Social History Date Type Detail Facility Start: 01-19-2023 End: 03-16-2024 Caffeine use Caffeine use [facility] [address] DO Work Phone: Comment on above: 1 soda daily; Start: 01-19-2023 End: 03-16-2024 Sex Assigned At [facility] Start: 05-24-2022 End: 01-19-2023 Tobacco smoking status NHIS Never smoked tobacco (finding) [facility] Start: 1945 Sex Assigned At Female [facility] Tobacco smoking status No Smokin g Status Entered [facility] Start: 08-17-2022 End: 01-19-2023 Tobacco use and exposure Smokeless tobacco non-user [facility] Work Phone: Start: 01-19-2023 End: 03-16-2024 Alcohol intake Lifetime non-drinker (finding) [facility] Work Phone: Start: 1945 Sex Assigned At Not on file [facility] Work Phone: Start: 01-09-2023 End: 03-16-2024 Exposure to SARS-CoV-2 (event) Not sure [facility] Start: 09-21-2022 Alcohol Comment Caffeine intak e: 1-2 cups per day [facility] Medical Equipment Procedure Code Equipment Code Equipment Origin al Text Equipment Identifier Dates Orthopaedic bone screw, non-bioabsorbable, non-sterile [id number] FDA Start: 01-07-2021 Femur nail, sterile [id number] FDA Start: 01-07-2021 Spiral blade [id number] FDA Start: 01-07-2021 USE DIRECTED ONCE DAILY AND NEEDED Start: 12-23-2021 Goals Date Patient Goal Desired Activity /State Functional Status Date Assessment Result Facility 09-21-2022 Functional Status N/A [facility] 09-18-2022 Functional Status N/A [facility] Clinical Notes 12-12-2020 to 03-16-2024 Álvaro Pruitt MD - 03/16/2024 2:00 PM ESTPatient InstructionsÁlvaro Pruitt MD - 08/17/2023 9:20 AM EDTPatient InstructionsÁlvaro Pruitt MD - 01/19/2023 10:10 AM ESTPatient Instructions Note Date & Type Note Facility 03-16-2024 History of Present illness Narrative Shad Muse is a 79 y.o. female Chief Complaint Follow-up HPI Patient is in the office for nonischemic cardiomyopathy. Since her last visit her echocardiogram in September 2023 revealing ejection fraction of 65% indicating complete normalization of the ejection fraction. She currently has no symptoms and her physical examination revealed 1+ edema bilaterally related to amlodipine therapy. She is due for blood work which is scheduled. Cardiac and pulmonary examinations were normal. Assessment/recommendations: 1-nonischemic cardiomyopathy confirmed by cardiac catheterization May 2022. Ejection fraction has normalized based on the echocardiogram September 2023 going up from 25% up to 65%. Will continue present medical therapy, she did not tolerate Jardiance 2-essential hypertension, controlled, present medical therapy will be left unchanged 3-type II diabetes on medical therapy managed by PCP, A1c just under 7 4-chronic left bundle branch block 5-dyslipidemia on statin therapy, lipid profile is ordered 6-previous history of brain aneurysm that was treated and resolved with no complications 7-overweight, encouraged patient to maintain adequate daily activities if she can, low-calorie diet was recommended 8-lower extremity edema related to amlodipine therapy, inconsequential and conservative therapy was recommended Review of Systems All other systems reviewed and are negative. Vitals: 03/16/24 1345 BP: 128/70 BP Location: Left arm Patient Position: Sitting Pulse: 76 Weight: 70.8 kg (156 lb) Height: 1.6 m (5' 3 ) Objective Physical Exam Constitutional: Appearance: Normal appearance. HENT: Nose: Nose normal. Neck: Vascular: No carotid bruit. Cardiovascular: Rate and Rhythm: Normal rate. Pulses: Normal pulses. Heart sounds: Normal heart sounds. Pulmonary: Effort: Pulmonary effort is normal. Abdominal: General: Bowel sounds are normal. Palpations: Abdomen is soft. Musculoskeletal: General: Normal range of motion. Cervical back: Normal range of motion. Right lower le+ Edema present. Left lower le+ Edema present. Skin: General: Skin is warm and dry. Neurological: General: No focal deficit present. Mental Status: She is alert. Psychiatric: Mood and Affect: Mood normal. Behavior: Behavior normal. Thought Content: Thought content normal. Judgment: Judgment normal. Allergies Aspartame, Budesonide-formoterol, Cantaloupe, and Pioglitazone Current Medications Current Outpatient Medications: amLODIPine (Norvasc) 5 mg tablet, Take 1 tablet by mouth once daily, Disp: 90 tablet, Rfl: 3 atorvastatin (Lipitor) 20 mg tablet, Take 1 tablet (20 mg) by mouth once daily in the morning., Disp: , Rfl: cholecalciferol (Vitamin D-3) 25 MCG (1000 UT) capsule, Take 1 capsule (25 mcg) by mouth once daily in the morning., Disp: , Rfl: glipiZIDE (Glucotrol) 10 mg tablet, Take 1 tablet (10 mg) by mouth once daily., Disp: , Rfl: losartan (Cozaar) 50 mg tablet, Take 1 tablet (50 mg) by mouth 2 times a day., Disp: 180 tablet, Rfl: 3 metFORMIN (Glucophage) 1,000 mg tablet, Take 1 tablet (1,000 mg) by mouth once daily at noon. Take with meals., Disp: , Rfl: metoprolol succinate XL (Toprol-XL) 100 mg 24 hr tablet, Take 1 tablet by mouth once daily, Disp: 90 tablet, Rfl: 3 spironolactone (Aldactone) 25 mg tablet, Take 1 tablet by mouth once daily, Disp: 90 tablet, Rfl: 3 Assessment/Plan 1. Cardiomyopathy, unspecified type (Multi) Follow Up In Cardiology Follow Up In Cardiology Basic Metabolic Panel CBC Basic Metabolic Panel CBC 2. Hypertension, benign Basic Metabolic Panel CBC Basic Metabolic Panel CBC 3. LBBB (left bundle branch block) 4. Mixed hyperlipidemia Alanine Aminotransferase Aspartate Aminotransferase Lipid Panel Alanine Aminotransferase Aspartate Aminotransferase Lipid Panel 5. Type 2 diabetes mellitus without complication, without long-term current use of insulin (Multi) 6. Overweight with body mass index (BMI) of 27 to 27.9 in adult 7. Never smoked tobacco Scribe Attestation By signing my name below, Dena Han LPN, Scribe attest that this documentation has been prepared under the direction and in the presence of Álvaro Pruitt MD. Provider Attestation - Scribe documentation All medical record entries made by the Scribe were at my direction and personally dictated by me. I have reviewed the chart and agree that the record accurately reflects my personal performance of the history, physical exam, discussion and plan. documented in this encounter [facility] Work Phone: 03-16-2024 Instructions Dena Beasley LPN - 03/16/2024 2:00 PM EST Please bring all medicines, vitamins, and herbal supplements with you when you come to the office. Prescriptions will not be filled unless you are compliant with your follow up appointments or have a follow up appointment scheduled as per instruction of your physician. Refills should be requested at the time of your visit. BMI was above normal measurement. Current weight: 70.8 kg (156 lb) Weight change since last visit (-) denotes wt loss 0 lbs Weight loss needed to achieve BMI 25: 15.2 Lbs Weight loss needed to achieve BMI 30: -13 Lbs Provided instructions on dietary changes Provided instructions on exercise. Lab work 6 months documented in this encounter [facility] Work Phone: 08-17-2023 History of Present illness Narrative Shad Muse is a 78 y.o. female Chief Complaint Follow-up HPI Patient is in the office for follow-up for the problems noted below. She reports no symptoms suggestive of decompensated heart failure. She is tolerating her medical therapy very well. I reviewed with the patient the cardiac cath findings from last year and need to continue to monitor ejection fraction and assess whether she will ever need AICD. She has chronic left bundle branch block as well. Presently there is no evidence of volume overload. Her medical therapy was reviewed and she will benefit from adding Jardiance 10 mg daily and increasing losartan up to 50 mg twice daily. Assessment/recommendations: 1-nonischemic cardiomyopathy confirmed by cardiac catheterization May 2022. Ejection fraction at the time measured 40%. The patient will be on maximal dose losartan and maximally tolerated beta-thomas therapy along with spironolactone. Will add Jardiance if affordable, we will reassess ejection fraction in couple of months to ensure that AICD is not needed 2-essential controlled hypertension, present medical therapy will be left unchanged 3-type II diabetes on medical therapy managed by PCP 4-chronic left bundle branch block which may be contributing factor for LV systolic dysfunction 5-dyslipidemia on statin therapy 6-previous history of brain aneurysm that was treated and resolved with no complications 7-overweight, encouraged patient to maintain adequate daily activities if she can, low-calorie diet was recommended Review of Systems All other systems reviewed and are negative. Vitals: 08/17/23 0901 BP: 128/65 BP Location: Left arm Patient Position: Sitting Pulse: 78 Weight: 70.8 kg (156 lb) Height: 1.6 m (5' 3 ) Objective Physical Exam Constitutional: Appearance: Normal appearance. HENT: Nose: Nose normal. Neck: Vascular: No carotid bruit. Cardiovascular: Rate and Rhythm: Normal rate. Pulses: Normal pulses. Heart sounds: Normal heart sounds. Pulmonary: Effort: Pulmonary effort is normal. Abdominal: General: Bowel sounds are normal. Palpations: Abdomen is soft. Musculoskeletal: General: Normal range of motion. Cervical back: Normal range of motion. Right lower leg: No edema. Left lower leg: No edema. Skin: General: Skin is warm and dry. Neurological: General: No focal deficit present. Mental Status: She is alert. Psychiatric: Mood and Affect: Mood normal. Behavior: Behavior normal. Thought Content: Thought content normal. Judgment: Judgment normal. Allergies Aspartame, Budesonide-formoterol, Cantaloupe, and Pioglitazone Current Medications Current Outpatient Medications: amLODIPine (Norvasc) 5 mg tablet, Take 1 tablet by mouth once daily, Disp: 90 tablet, Rfl: 3 atorvastatin (Lipitor) 20 mg tablet, Take 1 tablet (20 mg) by mouth once daily in the morning., Disp: , Rfl: cholecalciferol (Vitamin D-3) 25 MCG (1000 UT) capsule, Take 1 capsule (25 mcg) by mouth once daily in the morning., Disp: , Rfl: glipiZIDE (Glucotrol) 10 mg tablet, Take 1 tablet (10 mg) by mouth once daily., Disp: , Rfl: metFORMIN (Glucophage) 1,000 mg tablet, Take 1 tablet (1,000 mg) by mouth once daily at noon. Take with meals., Disp: , Rfl: metoprolol succinate XL (Toprol-XL) 100 mg 24 hr tablet, Take 1 tablet by mouth once daily, Disp: 90 tablet, Rfl: 0 spironolactone (Aldactone) 25 mg tablet, Take 1 tablet by mouth once daily, Disp: 90 tablet, Rfl: 3 coenzyme Q-10 200 mg capsule, Take 1 capsule (200 mg) by mouth 3 (three) times a week., Disp: , Rfl: Assessment/Plan 1. Cardiomyopathy, unspecified type (Multi) Follow Up In Cardiology 2. Hypertension, benign Follow Up In Cardiology 3. LBBB (left bundle branch block) 4. Mixed hyperlipidemia 5. Type 2 diabetes mellitus without complication, without long-term current use of insulin (Multi) 6. Hyperlipidemia, unspecified hyperlipidemia type 7. Overweight with body mass index (BMI) of 27 to 27.9 in adult 8. Never smoked tobacco Scribe Attestation By signing my name below, Dena Han LPN, Scribe attest that this documentation has been prepared under the direction and in the presence of Álvaro Pruitt MD. Provider Attestation - Scribe documentation All medical record entries made by the Scribe were at my direction and personally dictated by me. I have reviewed the chart and agree that the record accurately reflects my personal performance of the history, physical exam, discussion and plan. documented in this encounter [facility] Work Phone: 08-17-2023 Instructions Dena Beasley LPN - 08/17/2023 9:20 AM EDT Please bring all medicines, vitamins, and herbal supplements with you when you come to the office. Prescriptions will not be filled unless you are compliant with your follow up appointments or have a follow up appointment scheduled as per instruction of your physician. Refills should be requested at the time of your visit. BMI was above normal measurement. Current weight: 70.8 kg (156 lb) Weight change since last visit (-) denotes wt loss 7 lbs Weight loss needed to achieve BMI 25: 15.2 Lbs Weight loss needed to achieve BMI 30: -13 Lbs Provided instructions on dietary changes. AICD discussed Increase Losartan to 50 mg one tablet two times daily Start Jardiance 10 mg one daily Echo 6 month follow up Chem 6 documented in this encounter [facility] Work Phone: 01-19-2023 History of Present illness Narrative Shad Muse is a 77 y.o. female Chief Complaint Follow-up HPI Patient is in the office for follow-up for nonischemic cardiomyopathy confirmed by cardiac catheterization last year. She has done well from a cardiac standpoint but this summer she was admitted to [facility] and to [facility] for colitis and did not have colonoscopy. The symptoms resolved. Lab data from the admission were requested. Her medical therapy was reviewed and it has been well-tolerated. She has demonstrated no symptoms or signs of decompensated heart failure and no side effect of medications. Examination was unremarkable for slight overweight. Assessment/recommendations: 1-nonischemic cardiomyopathy confirmed by cardiac catheterization May 2022. The patient will continue on maximal dose losartan and maximally tolerated beta-thomas therapy along with spironolactone. 2-controlled hypertension, present medical therapy will be left unchanged 3-diabetes on medical therapy managed by PCP 4-chronic left bundle branch block which may be contributing factor for LV systolic dysfunction 5-dyslipidemia on statin therapy 6-previous history of brain aneurysm that was treated and resolved with no complications 7-overweight, encouraged patient to maintain adequate daily activities if she can, low-calorie diet was recommended Review of Systems All other systems reviewed and are negative. Visit Vitals BP 102/50 (BP Location: Left arm, Patient Position: Sitting) Pulse 72 Ht 1.6 m (5' 3 ) Wt 67.6 kg (149 lb) BMI 26.39 kg/m Smoking Status Never BSA 1.73 m Objective Physical Exam Constitutional: Appearance: Normal appearance. She is normal weight. HENT: Nose: Nose normal. Neck: Vascular: No carotid bruit. Cardiovascular: Rate and Rhythm: Normal rate. Pulses: Normal pulses. Heart sounds: Normal heart sounds. Pulmonary: Effort: Pulmonary effort is normal. Abdominal: General: Bowel sounds are normal. Palpations: Abdomen is soft. Genitourinary: Rectum: Normal. Musculoskeletal: General: Normal range of motion. Cervical back: Normal range of motion. Right lower leg: No edema. Left lower leg: No edema. Skin: General: Skin is warm and dry. Neurological: General: No focal deficit present. Mental Status: She is alert. Psychiatric: Mood and Affect: Mood normal. Behavior: Behavior normal. Thought Content: Thought content normal. Judgment: Judgment normal. Current Medications Current Outpatient Medications: amLODIPine (Norvasc) 5 mg tablet, Take 1 tablet (5 mg) by mouth once daily in the morning., Disp: , Rfl: atorvastatin (Lipitor) 20 mg tablet, Take 1 tablet (20 mg) by mouth once daily in the morning., Disp: , Rfl: cholecalciferol (Vitamin D-3) 25 MCG (1000 UT) capsule, Take 1 capsule (25 mcg) by mouth once daily in the morning., Disp: , Rfl: coenzyme Q-10 200 mg capsule, Take 1 capsule (200 mg) by mouth 3 (three) times a week., Disp: , Rfl: glipiZIDE (Glucotrol) 10 mg tablet, Take 1 tablet (10 mg) by mouth once daily., Disp: , Rfl: losartan (Cozaar) 50 mg tablet, Take 1 tablet (50 mg) by mouth once daily in the morning., Disp: , Rfl: metFORMIN (Glucophage) 1,000 mg tablet, Take 1 tablet (1,000 mg) by mouth once daily at noon. Take with meals., Disp: , Rfl: metoprolol succinate XL (Toprol-XL) 100 mg 24 hr tablet, 1 tablet (100 mg)., Disp: , Rfl: spironolactone (Aldactone) 25 mg tablet, Take 1 tablet (25 mg) by mouth once daily in the morning., Disp: , Rfl: Assessment/Plan 1. Hypertension, benign Follow Up In Cardiology 2. Cardiomyopathy, unspecified type (CMS/HCC) Follow Up In Cardiology 3. Mixed hyperlipidemia 4. Aneurysm (CMS/HCC) 5. Type 2 diabetes mellitus without complication, without long-term current use of insulin (CMS/HCC) documented in this encounter [facility] Work Phone: 01-19-2023 Instructions Izabel Granados LPN - 01/19/2023 10:10 AM EST Please bring all medicines, vitamins, and herbal supplements with you when you come to the office. Prescriptions will not be filled unless you are compliant with your follow up appointments or have a follow up appointment scheduled as per instruction of your physician. Refills should be requested at the time of your visit. documented in this encounter [facility] Work Phone: 09-29-2022 Note Microbiology PROCEDURE: Blood Culture Charcoal [R1] SOURCE: Blood BODY SITE: Arm L COLLECTED DATE/TIME: 09/21/2022 21:27 EDT RECEIVED DATE/TIME: 09/22/2022 00:44 EDT START DATE/TIME: 09/22/2022 00:44 EDT FREE TEXT SOURCE: IV start/lt ac Dokken DO, Kaylinn A Dokken DO, Kaylinn A FINAL REPORTS Final Report [] Verified Date/Time: 09/29/2022 07:00 EDT No growth at 7 days. Performing Locations R1: [facility], [address] [place] [address], [facility] , , [facility] Comment on above: Performed By: #### [id number] ####[place] [address] 09-29-2022 Note Microbiology PROCEDURE: Blood Culture Charcoal [R1] SOURCE: Blood BODY SITE: Arm R COLLECTED DATE/TIME: 09/21/2022 20:49 EDT RECEIVED DATE/TIME: 09/22/2022 00:43 EDT START DATE/TIME: 09/22/2022 00:43 EDT FREE TEXT SOURCE: rt ac Dokken DO, Kaylinn A Dokken DO, Kaylinn A FINAL REPORTS Final Report [] Verified Date/Time: 09/29/2022 07:00 EDT No growth at 7 days. Performing Locations R1: This test was performed at: [employer], [address] [place] [address], [id number] , [place], [facility] Comment on above: Performed By: #### [id number] ####[facility] [id number] [place] [address] 09-22-2022 Hospital Discharge instructions Patient Education 09/22/2022 00:02:03 Nausea and Vomiting, Adult, Ckro-aa-Nmjl Nausea and Vomiting, Adult Nausea is feeling that you have an upset stomach and that you are about to vomit. Vomiting is when food in your stomach forcefully comes out of your mouth. Vomiting can make you feel weak. If you vomit, or if you are not able to drink enough fluids, you may not have enough water in your body (get dehydrated). If you do not have enough water in your body, you may: Feel tired. Feel thirsty. Have a dry mouth. Have cracked lips. Pee (urinate) less often. Older adults and people with other diseases or a weak body defense system (immune system) are at higher risk for not having enough water in the body. If you feel like you may vomit or you vomit, it is important to follow instructions from your doctor about how to take care of yourself. Follow these instructions at home: Watch your symptoms for any changes. Tell your doctor about them. Eating and drinking Take an ORS (oral rehydration solution). This is a drink that is sold at pharmacies and stores. Drink clear fluids in small amounts as you are able, such as: ?Water. ?Ice chips. ?Fruit juice that has water added (diluted fruit juice). ?Low-calorie sports drinks. Eat bland, tbix-zt-nzlgmy foods in small amounts as you are able, such as: ?Bananas. ?Applesauce. ?Rice. ?Low-fat (lean) meats. ?[place]. ?Crackers. Avoid drinking fluids that have a lot of sugar or caffeine in them. This includes energy drinks, sports drinks, and soda. Avoid alcohol. Avoid spicy or fatty foods. General instructions Take nrnq-sbt-hfkhokv and prescription medicines only as told by your doctor. Drink enough fluid to keep your pee (urine) pale yellow. Wash your hands often with soap and water for at least 20 seconds. If you cannot use soap and water, use hand director embalmer. Make sure that everyone in your home washes their hands well and often. Rest at home until you feel better. Watch your condition for any changes. Take slow and deep breaths when you feel like you may vomit. Keep all follow-up visits. Contact a doctor if: Your symptoms get worse. You have new symptoms. You have a fever. You cannot drink fluids without vomiting. You feel like you may vomit for more than 2 days. You feel light-headed or dizzy. You have a headache. You have muscle cramps. You have a rash. You have pain while peeing. Get help right away if: You have pain in your chest, neck, arm, or jaw. You feel very weak or you faint. You vomit again and again. You have vomit that is bright red or looks like black coffee grounds. You have bloody or black poop (stools) or poop that looks like tar. You have a very bad headache, a stiff neck, or both. You have very bad pain, cramping, or bloating in your belly (abdomen). You have trouble breathing. You are breathing very quickly. Your heart is beating very quickly. Your skin feels cold and clammy. You feel confused. You have signs of losing too much water in your body, such as: ?Dark pee, very little pee, or no pee. ?Cracked lips. ?Dry mouth. ?Sunken eyes. ?Sleepiness. ?Weakness. These symptoms may be an emergency. Get help right away. Call 911. Do not wait to see if the symptoms will go away. Do not drive yourself to the hospital. Summary Nausea is feeling that you have an upset stomach and that you are about to vomit. Vomiting is when food in your stomach comes out of your mouth. Follow instructions from your doctor about eating and drinking. Take wuod-fyc-cvuumrr and prescription medicines only as told by your doctor. Contact your doctor if your symptoms get worse or you have new symptoms. Keep all follow-up visits. This information is not intended to replace advice given to you by your health care provider. Make sure you discuss any questions you have with your health care provider. Document Revised: 09/04/2021 Document Reviewed: 09/04/2021 [employer] Patient Education 2022 [employer]. 09/22/2022 00:02:03 Colitis Colitis Colitis is a condition in which the colon is inflamed. It can cause diarrhea, blood in the stool, and abdominal pain. Colitis can last a short time (be acute), or it may last a long time (become chronic). What are the causes? This condition may be caused by: Infections from viruses or bacteria. A reaction to medicine. Certain autoimmune diseases, such as Crohn's disease or ulcerative colitis. Radiation treatment. Decreased blood flow to the bowel (ischemia). What are the signs or symptoms? Symptoms of this condition include: Diarrhea, blood in the stool, or black, tarry stool. Pain in the joints or abdominal pain. Fever or fatigue. Vomiting. Weight loss. Bloating. Having fewer bowel movements than usual. A strong and sudden urge to have a bowel movement. Feeling like the bowel is not empty after a bowel movement. How is this diagnosed? This condition may be diagnosed based on a stool test and a blood test. You may also have other tests, such as: X-rays. CT scan. Colonoscopy. Endoscopy. Biopsy. How is this treated? Treatment for this condition depends on the cause. This condition may be treated with: Steps to rest the bowel, such as not eating or drinking for a period of time. Fluids that are given through an IV. Medicine for pain and diarrhea. Antibiotic medicines. Cortisone medicines. Surgery. Follow these instructions at home: Eating and drinking Follow instructions from your health care provider about eating or drinking restrictions. Drink enough fluid to keep your urine pale yellow. Work with a dietitian to determine whether certain foods cause your condition to flare up. Avoid foods or drinks that cause flare-ups. Eat a well-balanced diet. General instructions If you were prescribed an antibiotic medicine, take it as told by your health care provider. Do not stop taking the antibiotic even if you start to feel better. Take mpad-edt-nrpokcd and prescription medicines only as told by your health care provider. Keep all follow-up visits. This is important. Contact a health care provider if: Your symptoms do not go away. You develop new symptoms. Get help right away if: You have a fever that does not go away with treatment. You develop chills. You have extreme weakness, fainting, or dehydration. You vomit repeatedly. You develop severe pain in your abdomen. You pass bloody or tarry stool. Summary Colitis is a condition in which the colon is inflamed. Colitis can last a short time (be acute), or it may last a long time (become chronic). Treatment for this condition depends on the cause and may include resting the bowel, taking medicines, or having surgery. If you were prescribed an antibiotic medicine, take it as told by your health care provider. Do not stop taking the antibiotic even if you start to feel better. Get help right away if you develop severe pain in your abdomen. Keep all follow-up visits. This is important. This information is not intended to replace advice given to you by your health care provider. Make sure you discuss any questions you have with your health care provider. Document Revised: 11/04/2020 Document Reviewed: 11/04/2020 [employer]ise Patient Education 2022 [employer]. Follow Up Care 09/21/2022 19:56:15 With:Danielle Nowak Address: [place] [place] [address] Business (1) When:09/24/2022 Comments:You can take the Zofran every 6 hours as needed for nausea and vomiting. Please continue taking the Flagyl as prescribed you have completed the course. Please follow-up with your primary care doctor in the next 2 to 3 days for further evaluation management. Please return to the ED for any new or worsening symptoms. [facility] 09-21-2022 Evaluation + Plan note Extrac robby from: Title:ED Note Author:Altagracia Rosario DO Date :09/21/22 Acute colitis (K52.9: Noninf ective gastroenteritis and colitis, unspecified) N&V (nausea and vomiting) (R11.2: Nausea with vomiting, unspecified) Orders: metronidazole, 500 mg = 1 tab(s), Tab, Oral, Once, Stop date 09/21/22 23:18:00 EDT, STAT, Start date 09/21/22 23:18:00 EDT, 09/21/22 23:18:00 EDT ondansetron, 4 mg = 2 mL, Injection, IV Push, Once, Stop date 09/21/22 21:26:00 EDT, STAT, Start date 09/21/22 21:26:00 EDT, 09/21/22 21:26:00 EDT Sodium Chloride 0.9% intravenous solution, 1,000 mL, Soln-IV, IV, Once, Stop date 09/21/22 20:30:00 EDT, STAT, Start date 09/21/22 20:30:00 EDT, Infuse over 61, minute(s) Automated Diff Blood Culture Charcoal Blood Culture Charcoal CBC w/ Auto Diff Comprehensive Metabolic Panel Continuous Pulse Oximetry ECG 12 Lead Adult ED Cardiac Monitoring eGFR Extra SST Tube Lactic Acid Lactic Acid Oxygen Therapy PT & PTT Troponin UA With Cult Reflex XR Chest Single View Diagnostic Tests Pending * Blood Culture Charcoal 09/21/22 * Blood Culture Charcoal 09/21/[address] [facility]07-08-2023 Hospital Discharge instructions Patient Education 09/18/2022 14:27:07 Nausea and Vomiting, Adult, Xavy-ox-Bbny Nausea and Vomiting, Adult Nausea is feeling that you have an upset stomach and that you are about to vomit. Vomiting is when food in your stomach forcefully comes out of your mouth. Vomiting can make you feel weak. If you vomit, or if you are not able to drink enough fluids, you may not have enough water in your body (get dehydrated). If you do not have enough water in your body, you may: Feel tired. Feel thirsty. Have a dry mouth. Have cracked lips. Pee (urinate) less often. Older adults and people with other diseases or a weak body defense system (immune system) are at higher risk for not having enough water in the body. If you feel like you may vomit or you vomit, it is important to follow instructions from your doctor about how to take care of yourself. Follow these instructions at home: Watch your symptoms for any changes. Tell your doctor about them. Eating and drinking Take an ORS (oral rehydration solution). This is a drink that is sold at pharmacies and stores. Drink clear fluids in small amounts as you are able, such as: ?Water. ?Ice chips. ?Fruit juice that has water added (diluted fruit juice). ?Low-calorie sports drinks. Eat bland, fklq-lo-ldzqsc foods in small amounts as you are able, such as: ?Bananas. ?Applesauce. ?Rice. ?Low-fat (lean) meats. ?[place]. ?Crackers. Avoid drinking fluids that have a lot of sugar or caffeine in them. This includes energy drinks, sports drinks, and soda. Avoid alcohol. Avoid spicy or fatty foods. General instructions Take dini-gng-evunxbq and prescription medicines only as told by your doctor. Drink enough fluid to keep your pee (urine) pale yellow. Wash your hands often with soap and water for at least 20 seconds. If you cannot use soap and water, use hand director embalmer. Make sure that everyone in your home washes their hands well and often. Rest at home until you feel better. Watch your condition for any changes. Take slow and deep breaths when you feel like you may vomit. Keep all follow-up visits. Contact a doctor if: Your symptoms get worse. You have new symptoms. You have a fever. You cannot drink fluids without vomiting. You feel like you may vomit for more than 2 days. You feel light-headed or dizzy. You have a headache. You have muscle cramps. You have a rash. You have pain while peeing. Get help right away if: You have pain in your chest, neck, arm, or jaw. You feel very weak or you faint. You vomit again and again. You have vomit that is bright red or looks like black coffee grounds. You have bloody or black poop (stools) or poop that looks like tar. You have a very bad headache, a stiff neck, or both. You have very bad pain, cramping, or bloating in your belly (abdomen). You have trouble breathing. You are breathing very quickly. Your heart is beating very quickly. Your skin feels cold and clammy. You feel confused. You have signs of losing too much water in your body, such as: ?Dark pee, very little pee, or no pee. ?Cracked lips. ?Dry mouth. ?Sunken eyes. ?Sleepiness. ?Weakness. These symptoms may be an emergency. Get help right away. Call 911. Do not wait to see if the symptoms will go away. Do not drive yourself to the hospital. Summary Nausea is feeling that you have an upset stomach and that you are about to vomit. Vomiting is when food in your stomach comes out of your mouth. Follow instructions from your doctor about eating and drinking. Take vlzu-tnt-pinziry and prescription medicines only as told by your doctor. Contact your doctor if your symptoms get worse or you have new symptoms. Keep all follow-up visits. This information is not intended to replace advice given to you by your health care provider. Make sure you discuss any questions you have with your health care provider. Document Revised: 09/04/2021 Document Reviewed: 09/04/2021 [employer] Patient Education 2022 [employer]. 09/18/2022 14:27:07 Colitis Colitis Colitis is a condition in which the colon is inflamed. It can cause diarrhea, blood in the stool, and abdominal pain. Colitis can last a short time (be acute), or it may last a long time (become chronic). What are the causes? This condition may be caused by: Infections from viruses or bacteria. A reaction to medicine. Certain autoimmune diseases, such as Crohn's disease or ulcerative colitis. Radiation treatment. Decreased blood flow to the bowel (ischemia). What are the signs or symptoms? Symptoms of this condition include: Diarrhea, blood in the stool, or black, tarry stool. Pain in the joints or abdominal pain. Fever or fatigue. Vomiting. Weight loss. Bloating. Having fewer bowel movements than usual. A strong and sudden urge to have a bowel movement. Feeling like the bowel is not empty after a bowel movement. How is this diagnosed? This condition may be diagnosed based on a stool test and a blood test. You may also have other tests, such as: X-rays. CT scan. Colonoscopy. Endoscopy. Biopsy. How is this treated? Treatment for this condition depends on the cause. This condition may be treated with: Steps to rest the bowel, such as not eating or drinking for a period of time. Fluids that are given through an IV. Medicine for pain and diarrhea. Antibiotic medicines. Cortisone medicines. Surgery. Follow these instructions at home: Eating and drinking Follow instructions from your health care provider about eating or drinking restrictions. Drink enough fluid to keep your urine pale yellow. Work with a dietitian to determine whether certain foods cause your condition to flare up. Avoid foods or drinks that cause flare-ups. Eat a well-balanced diet. General instructions If you were prescribed an antibiotic medicine, take it as told by your health care provider. Do notstop taking the antibiotic even if you start to feel better. Take jnll-der-tmtphig and prescription medicines only as told by your health care provider. Keep all follow-up visits. This is important. Contact a health care provider if: Your symptoms do not go away. You develop new symptoms. Get help right away if: You have a fever that does not go away with treatment. You develop chills. You have extreme weakness, fainting, or dehydration. You vomit repeatedly. You develop severe pain in your abdomen. You pass bloody or tarry stool. Summary Colitis is a condition in which the colon is inflamed. Colitis can last a short time (be acute), nimesh may last a long time (become chronic). Treatment for this condition depends on the cause and may include resting the bowel, taking medicines, or having surgery. If you were prescribed an antibiotic medicine, take it as told by your health care provider. Do notstop taking the antibiotic even if you start to feel better. Get help right away if you develop severe pain in your abdomen. Keep all follow-up visits. This is important. This information is not intended to replace advice given to you by your health care provider. Make sure you discuss any questions you have with your health care provider. Document Revised: 11/04/2020 Document Reviewed: 11/04/2020 [employer]Rise Patient Education 2022 [employer]used. Follow Up Care 09/18/2022 09:36:17 With:Ginger FORMAN Address: [facility] [address] [place] [address]- Business (1) When:09/21/2022 13:45:19 With:Danielle Nowak Address: [place] [address]- Business (1) When:Within 3 Day(s) [facility]07-08-2023 Evaluation + Plan noteExtracted from: Title:ED Note Author:Memo Catherine DO Date:09/18 Colitis (K52.9: Noninfective gastroenteritis and colitis, unspecified) Vomiting (R11.10: Vomiting, unspecified) Orders: metronidazole, 500 mg = 1 tab(s), Oral, TID, Take one tab by mouth three times a day, # 21 tab(s), Refills(s) 0, Pharmacy: [facility]/pharmacy #[id number], 160, cm, 09/18/22 9:51:00 EDT, Height/Length Dosing, 68, kg, 09/18/22 9:51:00 EDT, Weight Dosing ondansetron, 4 mg = 1 tab(s), Oral, q6hr, PRN Nausea, Take one tab by mouth every six hours as needed for nausea, # 10 tab(s), Refills(s) 0, Pharmacy: [facility]/pharmacy #[id number], 160, cm, 09/18/22 9:51:00 EDT, Height/Length Dosing, 68, kg, 09/18/22 9:51:00 EDT, Weight Dosing ondansetron, 4 mg = 2 mL, Injection, IV Push, Once, Stop date 09/18/22 9:50:00 EDT, STAT, Start date 09/18/22 9:50:00 EDT, 09/18/22 9:50:00 EDT Sodium Chloride 0.9% intravenous solution, 1,000 mL, Soln-IV, IV, Once, Stop date 09/18/22 9:50:00 EDT, STAT, Start date 09/18/22 9:50:00 EDT, Infuse over 61, minute(s) Automated Diff CBC w/ Auto Diff Clostridium Difficile PCR Comprehensive Metabolic Panel CT Abdomen/Pelvis w/ Contrast eGFR Enteric Panel by PCR Extra Blue Tube Extra SST Tube Fecal WBC Lactoferrin Morphology Diagnostic Tests Pending * Enteric Panel by PCR 09/18/[address] [facility]03-17-2023 Discharge summary Author Álvaro Pruitt [facility] May 28, 2022 2:25pm Note Date/Time May 28, 2022 2:[address] [facility] [address] [place] [address] Discharge Summary Signed Patient: Lb Muse MR#: [id number] : 1945 Acct:[id number] Age/Sex: 77 / F Adm Date: 3 Loc: Room: Attending Dr: Álvaro Pruitt MD Copies to: Danielle Pruitt MD, FACC~ Providers Date of Discharge: 05/28/22 Discharging Provider: Álvaro Pruitt Primary Care Provider: Danielle She Discharge Diagnosis Final Diagnosis Final Discharge Diagnosis: Normal coronary arteries/left ventricular systolic dysfunction Summary Hospital Course Hospital course: Outpatient procedure Time Spent with Patient Time spent providing/coordinating discharge services (# min): 20 Surgeries and Procedures Operation Date: 05/28/22 13:15 Actual Procedures p CL [facility]HC & Cor Angio - Álvaro Pruitt MD Exam Physical Exam Vital Signs: Temp Pulse Resp BP Pulse Ox O2 Del Method 97.8 F 76 20 132/71 100 Room Air 05/28/22 12:09 05/28/22 12:09 05/28/22 12:09 05/28/22 12:09 05/28/22 12:09 05/28/22 12:17 Discharge Plan Discharge Plan Patient Disposition: Home Activity: Ambulate as Tolerated Diet: Low-Fat and Low-Sodium Prescriptions: New metoprolol succinate [Toprol XL] 100 mg tablet extended release 24 hr 100 mg PO DAILY 30 Days Qty: 30 6RF Continued acetaminophen 500 mg Tablet 500 mg PO Q4H PRN (Reason: Pain) Qty: 100 0RF diclofenac sodium 1 % Gel 2 g topical BID Qty: 25 0RF spironolactone 25 mg Tablet 50 mg PO QAM cholecalciferol (vitamin D3) [Vitamin D3] 25 mcg (1,000 unit) capsule 25 mcg PO QAM Patient Comments: TAKE 1 CAPSULE BY MOUTH ONCE DAILY FOR 90 DAYS losartan 50 mg tablet 100 mg PO QAM atorvastatin 20 mg tablet 20 mg PO QAM metoprolol succinate 50 mg tablet extended release 24 hr 50 mg PO QAM glipizide 5 mg tablet 10 mg PO DAILY@0800 Discontinued metformin 500 mg Tablet 1,000 mg PO DAILY@0800 Qty: 30 0RF Documented By: Álvaro Pruitt MD, [facility] 3 1425 Signed By: <Electronically signed by MD DANE Pruitt> 05/28/22 1425 [facility] Work Phone: 1(375) 669-438403-17-2023 Procedure [facility]03-17-2023 Procedure [facility]12-08-2021 Evaluation note* Encounter Date Diagnosis Assessment Notes Treatment Notes Treatment Clinical Notes Feb, Closed displaced intertrochanteric fracture of left femur with routine healing, subsequent encounter (ICD-10 - S72.142D) Feb, Age-related osteoporosis with current pathological fracture with routine healing, subsequent encounter (ICD-10 - M80.00XD) Feb, History of total lef t knee replacement (ICD-10 - Z96.652) Feb, Primary osteoarthrit is of right knee (ICD-10 - M17.11) Feb, Other In regards to the left hip nail, patient is doing fantastic. Recommended continue increasing activities as tolerated. We will plan to see her back in 6 weeks with repeat x-ray. 1. After consent was obtained, the right knee was injected with 3 cc of Kenalog and 7 cc of bupivacaine using sterile technique. Patient tolerated the injection well. 2. Tylenol: Discussed taking Tylenol (acetaminophen). Recommended adjusting their dosing to 1000mg by mouth up to 3 times a day. 3. NSAIDs: Recommend continued her diclofenac as prescribed. 4. We will reevaluate her right knee and pain relief with the injection at her next visit. We will also get updated weightbearing films of the right knee. [employer] Other 10-01-2021 History of Present illness Narrative* Mrs. Muse is a 76-year-old female seen back in the office today for follow-up on what seems to be anonischemic cardiomyopathy. She was seen as a consult in December 2020 because of a low ejection fraction while she was an inpatient. Echocardiogram suggested ejection fraction of approximately 40%. She was started on metoprolol. She was already taking losartan. She seems to be doing well with this.She is now had a stress test done. Stress test did not suggest evidence for ischemia but there was again demonstration of a decreased ejection fraction and on the nuclear study ejection fraction was estimated at 26%. She has no complaints of chest pain or chest pressure and again with the stress test there was no evidence for ischemia. She seems to be stable on her current medications and also seems to be doing well. * Physical exam: * Neck: No carotid bruits are heard * Lungs: Clear * Heart: Regular rate and rhythm without murmurs or extra sounds * Extremities: No edema * Recommendation is continuation of current medications. She appears clinically stable. No changes were recommended. She is to continue a low-sodium diet. She is to return in 1 year for follow-up. [facility] DO Work Phone: 1(439) 255-906110-01-2021 History of Present illness Narrative* Mrs. Muse is a 76-year-old female seen back today for follow-up on her history of nonischemic cardiomyopathy. She was seen as a consult in December 2020 because of low ejection fraction while she was an inpatient. An echocardiogram suggested ejection fraction of approximately 40%. She was started onmetoprolol and losartan. She seems to be doing well with this. She did have a stress test done thatdid not show evidence of ischemia. The nuclear ejection fraction from the stress test was estimatedat 26% but clinically she seems to be more likely of the in the 40% range as was suggested by the echocardiogram. As she has no complaints of any chest pain today. She apparently had a recent hospital ization at [facility] but this seems to have been noncardiac. * Physical exam: * Neck: No carotid bruits are heard * Lungs: Clear * Heart: Regular rate and rhythm without murmurs or extra sounds * Extremities: No edema * Recommendation is continuation of current medications. She appears clinically stable at present time. She does have a chronic left bundle branch block. No changes were made to medications. She is to keep her previously scheduled appointment for approximately 9 months. [facility] [employer] DO Work Phone: Evaluation noteNort [employer] Other Evaluation noteNo assessment information available [facility] Work Phone: Evaluation note* Diagnosis Hypertension, benign Essential hypertension, benign Cardiomyopathy, unspecified type (CMS/HCC) Mixed hyperlipidemia Aneurysm (CMS/HCC) Other aneurysm of unspecified site Type 2 diabetes mellitus without complication, without long-term current use of insulin (CMS/HCC) documented in this encounter [facility] Work Phone: Evaluation note* Diagnosis Cardiomyopathy, unspecified type (Multi)- Primary Hypertension, benign Essential hypertension, benign LBBB (left bundle branch block) Other left bundle branch block Mixed hyperlipidemia Type 2 diabetes mellitus without complication, without long-term current use of insulin (Multi) Hyperlipidemia, unspecified hyperlipidemia type Overweight with body mass index (BMI) of 27 to 27.9 in adult Never smoked tobacco 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 (Multi) documented in this encounter [facility] Work Phone: Evaluation note* Diagnosis Encounter for Medicare annual wellness exam- Primary Primary hypertension (CMS/HCC) Unspecified essential hypertension Other cardiomyopathy (CMS/HCC) LBBB (left bundle branch block) Other left bundle branch block Ventral hernia without obstruction or gangrene Unspecified ventral hernia without mention of obstruction or gangrene Female bladder prolapse Female stress incontinence Third degree uterine prolapse Uterine prolapse without mention of vaginal wall prolapse Osteopenia of multiple sites Rotator cuff arthropathy of left shoulder Vitamin D deficiency Type 2 diabetes mellitus without complication, without long-term current use of insulin (CMS/HCC) Abnormal gait Abnormality of gait Chronic fatigue Other malaise and fatigue Mixed hyperlipidemia (CMS/HCC) Mixed hyperlipidemia Mixed hyperlipidemia (CMS/HCC) Mixed hyperlipidemia Type 2 diabetes mellitus with other specified complication, without long-term current use of insulin (CMS/HCC) documented in this encounter [facility] HealthcareEvaluation note* Diagnosis Encounter for Medicare annual wellness exam- Primary Primary hypertension (CMS/HCC) Unspecified essential hypertension Other cardiomyopathy (CMS/HCC) LBBB (left bundle branch block) Other left bundle branch block Ventral hernia without obstruction or gangrene Unspecified ventral hernia without mention of obstruction or gangrene Female bladder prolapse Female stress incontinence Third degree uterine prolapse Uterine prolapse without mention of vaginal wall prolapse Osteopenia of multiple sites Rotator cuff arthropathy of left shoulder Vitamin D deficiency Type 2 diabetes mellitus without complication, without long-term current use of insulin (CMS/HCC) Abnormal gait Abnormality of gait Chronic fatigue Other malaise and fatigue Mixed hyperlipidemia (CMS/HCC) Mixed hyperlipidemia Type 2 diabetes mellitus with other specified complication, without long-term current use of insulin (CMS/HCC) Mixed hyperlipidemia (CMS/HCC) Mixed hyperlipidemia documented in [facility] encounter [facility]* Diagnosis Type 2 diabetes mellitus with other specified complication, without long-term current use of insulin (CMS/HCC) documented in this encounter [facility]* Diagnosis Cardiomyopathy, unspecified type (Multi) 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 (Multi) documented in this encounter [facility] Work Phone: Evaluation note* Diagnosis Cardiomyopathy, unspecified type (Multi) Hypertension, benign Essential hypertension, benign LBBB (left bundle branch block) Other left bundle branch block Mixed hyperlipidemia Type 2 diabetes mellitus without complication, without long-term current use of insulin (Multi) Overweight with body mass index (BMI) of 27 to 27.9 in adult Never smoked tobacco documented in this encounter [facility] Work Phone: Hisyetd general Narrative - ReportedNort [employer] Other History general Narrative - Reported* Type Description Date Surgical History left hip cephalomedullary nail 2020 Surgical History left knee replacement Surgical History hernia Surgical History aneruysm Surgical History tubal ligation Hospitalization History SEE ABOVE [employer] Other History of Present illness Narrative* The patient states she has been generally doing well since the last visit. Comorbid Illnesses: diabetes mellitus, hypertension and hyperlipidemia. * Symptoms: denies chest pain at rest, denies exertional chest pain, denies dyspnea, denies fatigue, stable exercise intolerance, denies palpitations, denies edema, denies orthopnea, denies claudication, denies dizziness and denies orthostatic dizziness. * Associated symptoms: no syncope, no PND and no tendency for easy bleeding. * Her symptoms do not limit her activities. * Disease Monitoring: The patient has had a stable weight. * Medications: the patient is adherent with her medication regimen. She denies medication side effects. [employer] [employer] Work Phone: History of Present illness Narrative* The patient states she has been generally doing well since the last visit. Comorbid Illnesses: diabetes mellitus, hypertension and hyperlipidemia. * Symptoms: denies chest pain at rest, denies exertional chest pain, denies dyspnea, denies fatigue, denies exercise intolerance, denies palpitations, denies edema, denies orthopnea, denies dizziness and denies orthostatic dizziness. * Associated symptoms: no syncope. * Her symptoms do not limit her activities. * Disease Monitoring: The patient has had a stable weight. * Medications: the patient is adherent with her medication regimen. She denies medication side effects. [employer] Work Phone: History of Present illness Narrative* The patient states she has been generally doing well since the last visit. Comorbid Illnesses: diabetes mellitus, hypertension and hyperlipidemia. * Symptoms: denies chest pain at rest, denies exertional chest pain, denies dyspnea, denies fatigue, denies exercise intolerance, denies palpitations, denies edema, denies orthopnea, denies dizziness and denies orthostatic dizziness. * Associated symptoms: no syncope. * Her symptoms do not limit her activities. * Disease Monitoring: The patient has had a stable weight. * Medications: the patient is adherent with her medication regimen. She denies medication side effects. [facility] [employer] Work Phone: History of Present illness Narrative* The patient states she has been generally doing well since the last visit. Comorbid Illnesses: diabetes mellitus, hypertension and hyperlipidemia. * Symptoms: denies chest pain at rest, denies exertional chest pain, denies dyspnea, denies fatigue, denies exercise intolerance, denies palpitations, denies edema, denies orthopnea, denies dizziness and denies orthostatic dizziness. * Associated symptoms: no syncope. * Her symptoms do not limit her activities. * Disease Monitoring: The patient has had a stable weight. * Medications: the patient is adherent with her medication regimen. She denies medication side effects. [facility] Work Phone: History of Present illness Narrative* The patient states she has been generally doing well since the last visit. Comorbid Illnesses: diabetes mellitus, hypertension and hyperlipidemia. * Symptoms: denies chest pain at rest, denies exertional chest pain, denies dyspnea, denies fatigue, denies exercise intolerance, denies palpitations, denies edema, denies orthopnea, denies dizziness and denies orthostatic dizziness. * Associated symptoms: no syncope. * Her symptoms do not limit her activities. * Disease Monitoring: The patient has had a stable weight. * Medications: the patient is adherent with her medication regimen. She denies medication side effects. [facility] [employer] [address] DO Work Phone: Hospital course Narrative No data available for this section [facility] Additional Instructions HOLD Metformin for 48 hours post procedure and then restart. DISCHARGE INSTRUCTIONS FOR CARDIAC CHASSIS WIRER PHONE NUMBER OF YOUR PHYSICIAN: [phone] PROCEDURE: Heart Cath The following instructions have been prepared to help you care for yourself, or be cared for upon your return home. 1. You were given conscious sedation. Do not operate a vehicle, power tools, make important decisions, or drink alcohol for 24 hours. You might be drowsy or light headed. Return to the Emergency Room if you have trouble breathing, walking or nausea and vomiting. 2. FOR BLEEDING: Apply continuous pressure to the site and call 911. 3. Operative Site Care: Keep the dressing clean and dry. You may change the dressing only if soiled or wet. You may remove the dressing the following morning. You may wash over the puncture site in the shower. If the puncture site is at the wrist no soaking for 3 days. Some bruising or slight swelling may be present. -Signs of infection are redness, warmth, swelling, getting more sore, colored drainage, fever or chills. -Should the arm or leg become cold, numb, blue or white, call the partner marketing intern immediately. 4. ACTIVITY: You are advised to go directly home from the hospital. Restrict your activities for the rest of the day. Resume light or normal activities tomorrow. Do not engage in any activity that will stress the puncture site. Avoid heavy lifting (over 15 lbs.), straining or bending at the catheter site for 48 hours after discharge. If the puncture site is at the wrist do not manipulate wrist for 24 hours and no lifting more than 3 lbs for 3 days. 5. DIET:You may eat your regular diet when you desire. 6. MEDICATIONS: Resume your daily prescription schedule. Prescriptions may be sent with you if needed. Use as directed. When taking pain medications, you may experience dizziness or drowsiness. Do not drink alcohol or drive when taking pain medications. 7. If you should experience episodes of angina e.g. chest discomfort, heaviness, tightness, pressure, burning, with or without radiation to the neck, jaws, arms, or back- Use 1 Nitrostat under your tongue every 5-10 minutes, and up to 3 tablets. If no relief- Call 911 and go to the nearest Emergency Room. -Notify the office for recurrent angina, chest pain or other concerns. You may NOT drive yourself home! Follow the medication instructions provided on your discharge. If the dosages and instructions on this sheet differ from the dosage and instructions on the bottle, follow the instructions on the bottle. [facility] is not responsible for incorrect prescription information provided by the patient during their visit. Do not stop your medications without consulting your health care provider. Please take the list with you to your next doctor's appointment.[facility] Work Phone: Progress note No data available for this section [facility] (narrative)* Consultation (Routine) - Authorized Specialty Diagnoses / Procedures Referred By Contac t Referred To Contact Cardiology Diagnoses Hypertension, benign Cardiomyopathy, unspecified type (CMS/HCC) Procedures Follow Up In Cardiology Álvaro Pruitt MD [address] [place] [address] 2, [address] [address] Álvaro Pruitt MD [address] [place] [address] 2, [address] [address] Referral ID Status Reason Start Date Expiration Date V isits Requested Visits Authorized [id number] Authorized 01/19/2023 01/19/2024 1 1 [facility] Work Phone: Family History No Family History Records FoundUnknown Family Member Name Dates Details Family history of hypertensi on: Mother, Sister, Brother(V17.49, Z82.49) Status:Active Family history of diabetes m ellitus: Mother, Sister, Brother(V18.0, Z83.3) Status:Active Family history of renal fail ure: Mother(V18.69, Z84.1) Status:Active Family history of Alzheimer' s disease: Father(V17.2, Z82.0) Status:Active Unknown Family Member Name Dates Details Family history of Alzheimer' s disease: Father(V17.2, Z82.0) Status:Active Family history of renal fail ure: Mother(V18.69, Z84.1) Status:Active Family history of diabetes m ellitus: Mother, Sister, Brother(V18.0, Z83.3) Status:Active Family history of hypertensi on: Mother, Sister, Brother(V17.49, Z82.49) Status:Active Unknown Family Member Name Dates Details Family history of hypertensi on: Mother, Sister, Brother(V17.49, Z82.49) Status:Active Family history of diabetes m ellitus: Mother, Sister, Brother(V18.0, Z83.3) Status:Active Family history of renal fail ure: Mother(V18.69, Z84.1) Status:Active Family history of Alzheimer' s disease: Father(V17.2, Z82.0) Status:Active Unknown Family Member Name Dates Details Family history of hypertensi on: Mother, Sister, Brother(V17.49, Z82.49) Status:Active Family history of diabetes m ellitus: Mother, Sister, Brother(V18.0, Z83.3) Status:Active Family history of renal fail ure: Mother(V18.69, Z84.1) Status:Active Family history of Alzheimer' s disease: Father(V17.2, Z82.0) Status:Active Unknown Family Member Name Dates Details Family history of hypertensi on: Mother, Sister, Brother(V17.49, Z82.49) Status:Active Family history of diabetes m ellitus: Mother, Sister, Brother(V18.0, Z83.3) Status:Active Family history of renal fail ure: Mother(V18.69, Z84.1) Status:Active Family history of Alzheimer' s disease: Father(V17.2, Z82.0) Status:Active Unknown Family Member Name Dates Details Family history of hypertensi on: Mother, Sister, Brother(V17.49, Z82.49) Status:Active Family history of diabetes m ellitus: Mother, Sister, Brother(V18.0, Z83.3) Status:Active Family history of renal fail ure: Mother(V18.69, Z84.1) Status:Active Family history of Alzheimer' s disease: Father(V17.2, Z82.0) Status:Active Unknown Family Member Name Dates Details Family history of hypertensi on: Mother, Sister, Brother(V17.49, Z82.49) Status:Active Family history of diabetes m ellitus: Mother, Sister, Brother(V18.0, Z83.3) Status:Active Family history of renal fail ure: Mother(V18.69, Z84.1) Status:Active Family history of Alzheimer' s disease: Father(V17.2, Z82.0) Status:Active Unknown Family Member Name Dates Details Family history of hypertensi on: Mother, Sister, Brother(V17.49, Z82.49) Status:Active Family history of diabetes m ellitus: Mother, Sister, Brother(V18.0, Z83.3) Status:Active Family history of renal fail ure: Mother(V18.69, Z84.1) Status:Active Family history of Alzheimer' s disease: Father(V17.2, Z82.0) Status:Active Unknown Family Member Name Dates Details Family history of hypertensi on: Mother, Sister, Brother(V17.49, Z82.49) Status:Active Family history of diabetes m ellitus: Mother, Sister, Brother(V18.0, Z83.3) Status:Active Family history of renal fail ure: Mother(V18.69, Z84.1) Status:Active Family history of Alzheimer' s disease: Father(V17.2, Z82.0) Status:Active Unknown Family Member Name Dates Details Family history of hypertensi on: Mother, Sister, Brother(V17.49, Z82.49) Status:Active Family history of diabetes m ellitus: Mother, Sister, Brother(V18.0, Z83.3) Status:Active Family history of renal fail ure: Mother(V18.69, Z84.1) Status:Active Family history of Alzheimer' s disease: Father(V17.2, Z82.0) Status:Active Unknown Family Member Name Dates Details Family history of hypertensi on: Mother, Sister, Brother(V17.49, Z82.49) Status:Active Family history of diabetes m ellitus: Mother, Sister, Brother(V18.0, Z83.3) Status:Active Family history of renal fail ure: Mother(V18.69, Z84.1) Status:Active Family history of Alzheimer' s disease: Father(V17.2, Z82.0) Status:Active Unknown Family Member Name Dates Details Family history of hypertensi on: Mother, Sister, Brother(V17.49, Z82.49) Status:Active Family history of diabetes m ellitus: Mother, Sister, Brother(V18.0, Z83.3) Status:Active Family history of renal fail ure: Mother(V18.69, Z84.1) Status:Active Family history of Alzheimer' s disease: Father(V17.2, Z82.0) Status:Active Relationship Condition Age at Onset Recorded Date/T blue Not Specified Hypertension Unknown Renal failure Unknown Diabetes mellitus Unknown father Alzheimer's disease Unknown Unknown Family Member Name Dates Details Family history of hypertensi on: Mother, Sister, Brother(V17.49, Z82.49) Status:Active Family history of diabetes m ellitus: Mother, Sister, Brother(V18.0, Z83.3) Status:Active Family history of renal fail ure: Mother(V18.69, Z84.1) Status:Active Family history of Alzheimer' s disease: Father(V17.2, Z82.0) Status:Active Unknown Family Member Name Dates Details Family history of hypertensi on: Mother, Sister, Brother(V17.49, Z82.49) Status:Active Family history of diabetes m ellitus: Mother, Sister, Brother(V18.0, Z83.3) Status:Active Family history of renal fail ure: Mother(V18.69, Z84.1) Status:Active Family history of Alzheimer' s disease: Father(V17.2, Z82.0) Status:Active Unknown Family Member Name Dates Details Family history of hypertensi on: Mother, Sister, Brother(V17.49, Z82.49) Status:Active Family history of diabetes m ellitus: Mother, Sister, Brother(V18.0, Z83.3) Status:Active Family history of renal fail ure: Mother(V18.69, Z84.1) Status:Active Family history of Alzheimer' s disease: Father(V17.2, Z82.0) Status:Active Chief Complaint * I am doing ok * LB MUSE is being seen for follow-up of a hospitalization for fall with incidental findings ofabnormal echo. * Dec 2020 at [facility] due to mechanical fall with L hip fracture. Seen by due to echo LVEF 40%with WMA and LBBB. Was placed on metoprolol. * Has been on losartan 4 years. * No prior cardiac testing. * Prior to fall, activity level included cooking, cleaning, vacuum and mopping. No exertional symptoms. * No orthopnea/PND. 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 * LB MUSE is being seen for follow-up of a hospitalization for. * 9 month routine f/u: 'doing great' * LB MUSE is being seen for a 9 month follow-up of cardiomyopathy and LBBB. * 9 month routine f/u: 'doing great' * LB MUSE is being seen for a 9 month follow-up of cardiomyopathy and LBBB. * Patient presents to the office ambulatory with steady gait. Last evaluated in clinic Dr. Landa June 2021. She was originally evaluated by Dr. Landa in December 2020 due to initial diagnosis left bundle branch block and cardiomyopathy with LVEF 40% identified at preop testing. At that time she was initiated on Toprol and losartan. * She follows routinely with her PCP has also seen orthopedics since last office visit due to left shoulder injury but no surgical repair necessary. She otherwise denies any hospitalizations or significant changes to interval medical history. * She presents to the office where she remains an extremely pleasant 77-year-old female who is aerobically active on a daily basis. She is able to housework, she mops and vacuums her floors. She does not have steps at home. She denies any exertional complaints. There have been no change in exercise capacity or functional tolerance. There is no evidence orthopnea, PND, no dizziness or lightheadedness. No edema. * December 2020 echo showed LVEF 40%. Follow-up perfusion study no ischemia with LVEF 26%. * She remains functional class I with without evidence of decompensation on Toprol and losartan. Discussed reevaluation of LVEF to assist with initiation of GDMT or EP stratification if warranted. She has now been on treatment greater than 16 months. Is in agreement to proceed. * Risk profile: * Hypertension: She follows her blood pressure at home and it is always good . She reports having whitecoat syndrome . * Hyperlipidemia: Managed by PCP * Diabetes: On ARB/statin reports most recent hemoglobin A1c 6 something * Non-smoker * 9 month routine f/u: 'doing great' * LB MUSE is being seen for a 9 month follow-up of cardiomyopathy and LBBB. * Patient presents to the office ambulatory with steady gait. Last evaluated in clinic Dr. Landa June 2021. She was originally evaluated by Dr. Landa in December 2020 due to initial diagnosis left bundle branch block and cardiomyopathy with LVEF 40% identified at preop testing. At that time she was initiated on Toprol and losartan. * She follows routinely with her PCP has also seen orthopedics since last office visit due to left shoulder injury but no surgical repair necessary. She otherwise denies any hospitalizations or significant changes to interval medical history. * She presents to the office where she remains an extremely pleasant 77-year-old female who is aerobically active on a daily basis. She is able to housework, she mops and vacuums her floors. She does not have steps at home. She denies any exertional complaints. There have been no change in exercise capacity or functional tolerance. There is no evidence orthopnea, PND, no dizziness or lightheadedness. No edema. * December 2020 echo showed LVEF 40%. Follow-up perfusion study no ischemia with LVEF 26%. * She remains functional class I with without evidence of decompensation on Toprol and losartan. Discussed reevaluation of LVEF to assist with initiation of GDMT or EP stratification if warranted. She has now been on treatment greater than 16 months. Is in agreement to proceed. * Risk profile: * Hypertension: She follows her blood pressure at home and it is always good . She reports having whitecoat syndrome . * Hyperlipidemia: Managed by PCP * Diabetes: On ARB/statin reports most recent hemoglobin A1c 6 something * Non-smoker * 9 month routine f/u: 'doing great' * LB MUSE is being seen for a 9 month follow-up of cardiomyopathy and LBBB. * Patient presents to the office ambulatory with steady gait. Last evaluated in clinic Dr. Landa June 2021. She was originally evaluated by Dr. Landa in December 2020 due to initial diagnosis left bundle branch block and cardiomyopathy with LVEF 40% identified at preop testing. At that time she was initiated on Toprol and losartan. * She follows routinely with her PCP has also seen orthopedics since last office visit due to left shoulder injury but no surgical repair necessary. She otherwise denies any hospitalizations or significant changes to interval medical history. * She presents to the office where she remains an extremely pleasant 77-year-old female who is aerobically active on a daily basis. She is able to housework, she mops and vacuums her floors. She does not have steps at home. She denies any exertional complaints. There have been no change in exercise capacity or functional tolerance. There is no evidence orthopnea, PND, no dizziness or lightheadedness. No edema. * December 2020 echo showed LVEF 40%. Follow-up perfusion study no ischemia with LVEF 26%. * She remains functional class I with without evidence of decompensation on Toprol and losartan. Discussed reevaluation of LVEF to assist with initiation of GDMT or EP stratification if warranted. She has now been on treatment greater than 16 months. Is in agreement to proceed. * Risk profile: * Hypertension: She follows her blood pressure at home and it is always good . She reports having whitecoat syndrome . * Hyperlipidemia: Managed by PCP * Diabetes: On ARB/statin reports most recent hemoglobin A1c 6 something * Non-smoker * LB MUSE is being seen for ECHO RESULTS. * 77-year-old white female came with her for discussing cardiac status with me. She has previously followed Dr. Landa and recently saw our nurse practitioner Kenan Huynh who requested that I see the patient. The patient apparently was diagnosed last year with left ventricular systolic dysfunction ejection fraction in the mid 40s. She was placed on medical therapy and followed but her EF continued to drift downwards. She had noninvasive investigations which revealed no ischemia or myocardial infarction. The patient has longstanding diabetes and previously had brain aneurysm that was treated and resolved. She has no history of cardiac arrhythmias no family history of CAD, no smoking history, she has hypertension on medical therapy but uncontrolled. She has no valvular heart disease and no PAD. She has no sleep apnea. She is able to function at class II heart failure. She has no volume overload. No cardiac arrhythmias. Examination was unremarkable except for slight overweight and mild hypertension. * Assessment/recommendations: * 1 left ventricular systolic dysfunction and functional class II NYHA with unknown etiology. Noninvasive investigations in the past have demonstrated no ischemia or myocardial infarction with no valvular heart disease. The patient's ejection fraction continued to drift downward despite medical therap y. Advised patient to consider invasive cardiac evaluation with right and left cardiac catheterization to have all the issues cleared in terms of etiology and long-term therapy. The benefits and potential complications were discussed with the patient and her . She is agreeable to proceed. * 2 uncontrolled hypertension, will increase losartan up to 50 mg twice daily and add Aldactone 25 mgdaily. * 3 diabetes on medical therapy managed by PCP * 4 chronic left bundle branch block which may be contributing factor for LV systolic dysfunction * 5 dyslipidemia on statin therapy * 6 previous history of brain aneurysm that was treated and resolved with no complications * 7 overweight, encouraged patient to maintain adequate daily activities if she can, low-calorie dietwas recommended * LB MUSE is being seen for ECHO RESULTS. * 77-year-old white female came with her for discussing cardiac status with me. She has previously followed Dr. Landa and recently saw our nurse practitioner Kenan Huynh who requested that I see the patient. The patient apparently was diagnosed last year with left ventricular systolic dysfunction ejection fraction in the mid 40s. She was placed on medical therapy and followed but her EF continued to drift downwards. She had noninvasive investigations which revealed no ischemia or myocardial infarction. The patient has longstanding diabetes and previously had brain aneurysm that was treated and resolved. She has no history of cardiac arrhythmias no family history of CAD, no smoking history, she has hypertension on medical therapy but uncontrolled. She has no valvular heart disease and no PAD. She has no sleep apnea. She is able to function at class II heart failure. She has no volume overload. No cardiac arrhythmias. Examination was unremarkable except for slight overweight and mild hypertension. * Assessment/recommendations: * 1 left ventricular systolic dysfunction and functional class II NYHA with unknown etiology. Noninvasive investigations in the past have demonstrated no ischemia or myocardial infarction with no valvular heart disease. The patient's ejection fraction continued to drift downward despite medical therap y. Advised patient to consider invasive cardiac evaluation with right and left cardiac catheterization to have all the issues cleared in terms of etiology and long-term therapy. The benefits and potential complications were discussed with the patient and her . She is agreeable to proceed. * 2 uncontrolled hypertension, will increase losartan up to 50 mg twice daily and add Aldactone 25 mgdaily. * 3 diabetes on medical therapy managed by PCP * 4 chronic left bundle branch block which may be contributing factor for LV systolic dysfunction * 5 dyslipidemia on statin therapy * 6 previous history of brain aneurysm that was treated and resolved with no complications * 7 overweight, encouraged patient to maintain adequate daily activities if she can, low-calorie dietwas recommended * S/P CATH 05-26-22. * LB MUSE is being seen for a 6 week follow-up of. * Patient is in the office for follow-up for the problems noted below. She underwent diagnostic cardiac catheterization by myself recently which revealed no coronary disease EF 40%. She is feeling wellwithout any complaints she has no symptoms of heart failure at the present time but was found to be hypertensive in the office today. Her examination was only remarkable for overweight and hypertension. * Assessment/recommendations: * 1 nonischemic cardiomyopathy confirmed by cardiac catheterization May 2022. The patient will continue on maximal dose losartan and maximally tolerated beta-thomas therapy along with spironolactone. We will add amlodipine 5 mg daily for hypertension control. She will come back for follow-up on the blood pressure. Eventually I may switch patient to Entresto if necessary. * 2 uncontrolled hypertension, amlodipine 5 mg daily is added to her medical regimen. * 3 diabetes on medical therapy managed by PCP * 4 chronic left bundle branch block which may be contributing factor for LV systolic dysfunction * 5 dyslipidemia on statin therapy * 6 previous history of brain aneurysm that was treated and resolved with no complications * 7 overweight, encouraged patient to maintain adequate daily activities if she can, low-calorie dietwas recommended LB MUSE is being seen for hypertension.* LB MUSE is being seen for hypertension. * Patient is in the office for hypertension management. Recently amlodipine 5 mg daily was added to her medical regimen and it seemed to have helped bringing her blood pressure under control in combination with the other medical therapy she is on. This measure did not cause any side effects.. Presentmedical therapy therefore be left as it is and we will continue to follow the patient Summary Purpose Advance Directives No Advanced Directives Records Found Advance Directive Response Recorded Date/ Time Advance Directives Yes January 06, 2021 11:04pm Chief Complaint and Reason for Visit Chief Complaint Abnormal Echo, Hyerp tension, Bundle Branch Block Chief Complaint Abnormal Echo, Hyerp tension, Bundle Branch Block Abnormal Echo, Hyerptension, Bundle Branch Block Reason for Referral Specialty Diagnoses / Procedures Referred By Contac t Referred To Contact Cardiology Diagnoses Cardiomyopathy, unspecified type (Multi) 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 (Multi) Procedures Transthoracic Echo Complete NV ECHO TTHRC R-T 2D W/WOM-MODE COMPL SPEC&COLR D Álvaro Pruitt MD [address] [place] [address] 2, [address] [address] Referral ID Status Reason Start Date Expiration Date Visits Requested Visits Authorized [id number] Pending Review Perform Procedure 08/17/2023 08/16/2024 1 1 Specialty Diagnoses / Procedures Referred By Contac t Referred To Contact Cardiology Diagnoses Cardiomyopathy, unspecified type (Multi) Procedures Follow Up In Cardiology Álvaro Pruitt MD [address] [place] [address] 2, [address] [address] Álvaro Pruitt MD [address] [place] [address] 2, [address] [address] Referral ID Status Reason Start Date Expiration Date V isits Requested Visits Authorized [id number] Authorized 08/17/2023 08/16/2024 1 1 Additional Source Comments REASON FOR VISIT (unrecogniz ed section and content) Reason Comments Follow-up 6 months Reason Comments Follow-up 6m Specialty Diagnoses / Procedures Referred By Contac t Referred To Contact Cardiology Diagnoses Hypertension, benign Cardiomyopathy, unspecified type (Multi) Procedures Follow Up In Cardiology Álvaro Pruitt MD [address] [place] [address] 2, [address] [address] Álvaro Pruitt MD [address] [place] [address] 2, [address] [address] Referral ID Status Reason Start Date Expiration Date V isits Requested Visits Authorized [id number] Authorized 01/19/2023 01/19/2024 1 1 Reason Comments Med Refill Specialty Diagnoses / Procedures Referred By Contac t Referred To Contact Cardiology Diagnoses Cardiomyopathy, unspecified type (Multi) 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 (Multi) Procedures Transthoracic Echo Complete NV ECHO TTHRC R-T 2D W/WOM-MODE COMPL SPEC&COLR D Álvaro Pruitt MD [address] [facility] 2, [place] [place] [id number] Referral ID Status Reason Start Date Expiration Date Visits Requested Visits Authorized [id number] Pending Review Perform Procedure 08/17/2023 08/16/2024 1 1 Reason Comments Follow-up 6m Specialty Diagnoses / Procedures Referred By Contac t Referred To Contact Cardiology Diagnoses Cardiomyopathy, unspecified type (Multi) Procedures Follow Up In Cardiology Álvaro Pruitt MD [address] [facility] 2, [address] [address] Phone: tel: fax: Álvaro Pruitt MD [address] [facility] 2, [address] [address] Phone: tel: fax: Referral ID Status Reason Start Date Expiration Date V isits Requested Visits Authorized [id number] Pending Review 08/17/2023 08/16/2024 1 1 INFORMATION SOURCE (unrecogn ized section and content) DATE CREATED AUTHOR 05/12/2022 [facility] DATE CREATED AUTHOR AUTHOR'S ORGANIZ ATION 06/06/2022 [facility] DATE CREATED AUTHOR AUTHOR'S ORGANIZ ATION 06/28/2022 [facility] DATE CREATED AUTHOR AUTHOR'S ORGANIZ ATION 09/05/2022 [facility] DATE CREATED AUTHOR AUTHOR'S ORGANIZ ATION 09/30/2022 [facility] DATE CREATED AUTHOR AUTHOR'S ORGANIZ ATION 01/06/2023 [facility] DATE CREATED AUTHOR AUTHOR'S ORGANIZ ATION 02/09/2023 [facility] DATE CREATED AUTHOR AUTHOR'S ORGANIZ ATION 01/08/2024 [facility] DATE CREATED AUTHOR AUTHOR'S ORGANIZ ATION 03/24/2024 [facility] Teams (unrecognized sec tion and content) Team Status: Active Member Role Status Dates Danielle Nowak MD Primary Care Provider Active Team Status: Inactive Member Role Status Dates Álvaro Pruitt MD Attending Provider Active Danielle Nowak MD Primary Care Provider Active Color Repairer Relationship Specialty Start Date End Date Danielle Nowak MD [address] [place] [address] PCP - General 03/14/19 Color Repairer Relationship Specialty Start Date End Date Danielle Nowak MD [address] [place] [address] PCP - General 03/14/19 Color Repairer Relationship Specialty Start Date End Date Danielle Nowak MD [address] [place] [address] PCP - General Family Medicine 08/04/22 Danielle Nowak MD [address] [place] [address] PCP - ACO Reach 05/13/23 Color Repairer Relationship Specialty Start Date End Date Danielle Nowak MD [address] [place] [address] PCP - General Family Medicine 08/04/22 Danielle Nowak MD [address] [place] [address] PCP - ACO Reach 05/13/23 Color Repairer Relationship Specialty Start Date End Date Danielle Nowak MD [address] [place] [address] PCP - General Family Medicine 08/04/22 Danielle Nowak MD [address] [place] [address] PCP - ACO Reach 05/13/23 Color Repairer Relationship Specialty Start Date End Date Danielle Nowak MD [address] [place] [address] PCP - General 03/14/19 Goals (unrecognized section and content) Goals may be documented in a n alternate section FOR RECORDS PERTAINING TO PATIENTS WHO ARE OR HAVE BEEN ENROLLED IN A CHEMICAL DEPENDENCY/SUBSTANCEABUSE PROGRAM, SOME INFORMATION MAY BE OMITTED. This clinical summary was aggregated from multiple sources. Caution should be exercised in using it in the provision of clinical care. This summary normalizes information from multiple sources, and as a consequence, information in this document may materially change the coding, format and clinical context of patient data. In addition, data may be omitted in some cases. CLINICAL DECISIONS SHOULD BE BASED ON THE PRIMARY CLINICAL RECORDS. [facility]. provides no warranty or guarantee of the accuracy or completeness of information in this document.
[2024-04-10 10:24] LABS: Basophils Absolute Auto 0.1 10^3/uL (0.0-0.1); Basophils Percent Auto 1.3 % (0.2-2.0); Eosinophils Absolute Auto 0.2 10^3/uL (0.0-0.7); Eosinophils Percent Auto 1.8 % (0.9-7.0); Hematocrit 38.4 % (36.0-48.0); Hemoglobin 12.3 g/dL (12.0-16.0); Immature Granulocytes Abs Auto 0.03 10^3/uL (0.00-0.03); Immature Granulocytes Pct Auto 0.3 % (0.0-0.5); Lymphocytes Absolute Auto 2.1 10^3/uL (1.2-3.8); Lymphocytes Percent Auto 19.1 % (20.5-60.0); Mean Corpuscular Hemoglobin 28.9 pg (26.7-34.0); Mean Corpuscular Volume 90.1 fL (81.0-99.0); Mean Platelet Volume 10.3 fL (9.5-13.5); Monocytes Absolute Auto 0.7 10^3/uL (0.3-0.8); Monocytes Percent Auto 6.4 % (1.7-12.0); Neutrophils Absolute Auto 7.7 10^3/uL (1.4-6.5); Neutrophils Percent Auto 71.1 % (43.0-75.0); Platelet Count 289 10^3/uL (150-450); Red Blood Count 4.26 10^6/uL (4.20-5.40); Red Cell Distribution Width 13.2 % (11.0-15.0); White Blood Count 10.8 10^3/uL (4.0-11.0)
[2024-04-10 10:55] LABS: Alanine Aminotransferase 14 U/L (14-59); Anion Gap 13.2; Aspartate Amino Transferase 14 U/L (15-37); BUN Creatinine Ratio 21.6; Calcium 9.4 mg/dL (8.5-10.1); Carbon Dioxide 24.3 mmol/L (21.0-32.0); Chloride 108 mmol/L (98-107); Chol HDL Ratio 2.1; Cholesterol 113 mg/dL (<=200); Estimated GFR (African America >60 (>=60 mL/min/1.73m^2); Estimated GFR (Non-African Ame 56 (>=60 mL/min/1.73m^2); Glucose 133 mg/dL (74-106); HDL Cholesterol 53 mg/dL (40-60); LDL Cholesterol Calculated 48.8 mg/dL; Potassium 4.5 mmol/L (3.5-5.1); Sodium 141 mmol/L (136-145); Triglycerides 56 mg/dL (<=150); VLDL CHOLESTEROL 11.2 mg/dL
== END 2024-04-10 09:50 | disposition home or self-care (01) ==
LOC: LAB 09:52
PROVIDERS: PCP Student in an Organized Health Care Education/Training Program; Visit Provider Internal Medicine Cardiovascular Disease
DX: E78.2 Mixed hyperlipidemia (principal); I42.9 Cardiomyopathy, unspecified; I10 Essential (primary) hypertension
CPT/HCPCS: 36415; 80048; 80061; 84450; 84460; 85025